=== PATIENT | female | born 1980 | race Caucasian/White ===

== ENCOUNTER 2021-02-01 19:50 | Emergency (ER) | payer MEDICAID, SELFPAY ==
[2021-02-01 19:55] VITALS: BP 138/74; BP 147/99; PULSE 116; PULSE 121; RESP 18; TEMP 36.9; O2SAT 98; O2SAT 99; BMI 40.7
--- NOTE | 2021-02-01 20:30 | ED_ITS ---
HPI - Psych General Chief Complaint: Psychiatric Symptoms Stated Complaint: anxiety Time Seen by Provider: 02/01/21 20:18 Source: patient Mode of arrival: EMS Limitations: no limitations History of Present Illness HPI Narrative: 40-year-old female who presents emergency department for evaluation of suicidal ideation and auditory hallucinations. The patient states that she has a history of heroin use disorder and last used 2 months prior. She states over the past 3 days she has been having suicidal thoughts. She states that she wants to overdose on heroin. She also states that over the past 3 days she has been hearing voices. She states that she cannot understand the voices and the voices are not giving her commands. She states that she has attempted to kill herself in the past by cutting her wrists. She has a history of depression left is not taking any medications for depression she has a history of hypertension in the states that she takes hydrochlorothiazide 25 mg once a day. She denied being ill in any other way, she denied fever, chills, chest pain, shortness of breath or cough. The patient has not had a COVID-19 infection during this pandemic. She states that she received the 2 doses Pfizer vaccine with her last dose being on 11/29/2020. Related Data Home Medications Medication Instructions Recorded Confirmed buprenorphine 12 mg-naloxone 3 mg 1.5 strip SUBLINGUAL DAILY 02/01/21 02/01/21 sublingual film (Suboxone) clonidine HCl 0.1 mg tablet 1 tab PO BID PRN 02/01/21 02/01/21 escitalopram oxalate 10 mg tablet 1 tab PO DAILY 02/01/21 02/01/21 lisinopril 20 mg tablet 1 tab PO DAILY 02/01/21 02/01/21 nicotine 14 mg/24 hr daily 1 patch TOPICAL DAILY 02/01/21 02/01/21 transdermal patch olanzapine 15 mg tablet 1 tab PO BEDTIME 02/01/21 02/01/21 omeprazole 40 mg capsule,delayed 1 cap PO DAILY 02/01/21 02/01/21 release venlafaxine 150 mg 150 mg PO QAM 02/01/21 02/01/21 capsule,extended release 24 hr Allergies Allergy/AdvReac Type Severity Reaction Status Date / Time No Known Allergies Allergy Verified 02/01/21 19:54 Review of Systems Review of Systems: Yes all other systems are reviewed and are negative PMFSH Past Medical History PMFSH Narrative: Social history: She states that she lives alone in apartment in [facility]. She occasionally smokes cigarettes. She denies alcohol use. She does have a history of heroin use but she states she has not used in 2 months. Medical History Anxiety Depression Suicide attempt Social History Social History Advance Directives: No Advance Directives Information Provided: Yes Patient : No Physical Exam Vital Signs: Vital Signs: Last Vital Signs Temp 98.5 F 02/01/21 19:55 Pulse 121 H 02/01/21 19:55 Resp 18 02/01/21 19:55 BP 147/99 H 02/01/21 19:55 Pulse Ox 99 02/01/21 19:55 Body Mass Index 40.7 Const: General: cooperative Orientation/consciousness: oriented to person and oriented to place Limitations: no limitations HENMT: Head: Yes normal to inspection, Yes normocephalic and Yes atraumatic Ears: external ears normal General nose exam: Normal external nose present Face and sinus: Yes normal facial exam Mouth: Normal oral and palatal mucosa present Throat: Yes posterior oropharynx normal Eyes: Periorbital: periorbital findings normal Eyelids: Yes eyelids normal Conjunctivae: conjunctivae normal Sclerae: sclerae normal Corneas: corneas normal Pupils: Equal, round and reactive pupils present Direct Ophthalmoscopy: normal light reflex Neck: Neck: Yes full ROM, Yes no lymphadenopathy, Yes trachea midline and Yes supple Chest: Chest palpation & inspection: normal inspection of the chest and normal palpation of entire chest wall Resp: Effort & Inspection: normal respiratory effort and able to speak in complete sentences Auscultation: clear to auscultation bilaterally Cardio: Rate: regular rate Rhythm: regular rhythm Heart sounds: S1 normal heart sound present, S2 normal heart sound present and no murmurs GI: Inspection: Yes normal to inspection Palpation (GI): Soft to palpation, nontender, no guarding, not rigid and No hepatosplenomegaly present : General: Yes no CVA tenderness Back/Spine/Pelvis: Back: no CVA tenderness Cervical Spine: normal cervical lordosis Thoracic/Lumbar Spine: thoracic and lumbar spine normal to inspection Skin: Lesions: no lesions Rashes: no rashes Wounds: no wounds Neuro: General: oriented to person and oriented to place Cranial nerves: Yes CN's II-XII intact bilaterally and Yes Equal, round and reactive pupils pre sent Cognition (Neuro): normal cognition Motor exam (neuro): 5/5 motor strength present throughout Extrem: General: Yes normal to inspection and Yes full ROM Psych: Speech and movement: Normal speech and movement present Affect: normal affect Attitude: cooperative Thought process: Normal thought process present Thought content: Suicidality present, no homicidality and no delusions Course Course Course Narrative: 40-year-old female with a history of depression and auditory hallucinations in the past who presents emergency department for evaluation of suicidal ideation x3 days and auditory hallucinations x3 days. Patient's vital signs reveal that she was hypertensive with a blood pressure of 147/99 and tachycardic with a pulse of 121, otherwise the patient's examination was unremarkable. Laboratory evaluation to include CBC, CMP, TSH, urine test, urine tox screen and 12 lead EKG. 2306: Patient's laboratory evaluation revealed an elevated glucose of 226. Urinalysis revealed 15-29 RBCs 0-2 WBCs. TSH was normal. Ethanol was below detectable limits. Urine tox screen is pending. Twelve EKG did reveal inverted T-waves V3 through V6, however the patient is not having any chest pain and the EKG was obtained secondary to tachycardia presentation. I do not think that these represent ischemia. Patient is medically cleared for crisis evaluation. 0200: The patient's outpatient medication regimen was ordered. At the end of my shift, the patient is still waiting for Behavioral Health evaluation therefore she will be placed in physician observation. Patient's care was turned over to my colleague, Dr. Nahomy Barr. Physician observation started at 0 200 hours. Patient placed in physician observation because the patient needed more time for medication to work and to see and be evaluated for the need for psych admission. At the time observation was started the patient's vitals were stable, patient is is sleeping and her examination is unchanged. MDM - Psych Lab Data Result diagrams: 02/01/21 21:45 02/01/21 20:47 Labs: Lab Results 02/01/21 02/01/21 02/01/21 Range/Units 20:17 20:47 21:24 WBC (4.8-10.8) X10*3/uL RBC (4.20-5.50) X10*6/uL Hgb (12.0-16.0) g/dl Hct (37-47) % MCV (80-98) fL MCH (27.0-33.0) pg MCHC (31.0-35.0) g/dl RDW (11.0-16.0) % Plt Count (160-400) X10*3/uL MPV (9.4-12.3) fL Immature Gran % (Auto) (0.0-0.4) % Neut % (Auto) (45-73) % Lymph % (Auto) (20-40) % [place] % (Auto) (2-11) % Eos % (Auto) (0-4) % Baso % (Auto) (0-2) % Lymph # (Auto) (1.2-4.9) X10*3/uL [place] # (Auto) (0.1-1.2) X10*3/uL Eos # (Auto) (0.0-0.4) X10*3/uL Baso # (Auto) (0.0-0.2) X10*3/uL Abs Immat Gran (auto) (0.00-0.03) X10*3/uL Absolute Neuts (auto) (2.0-8.3) X10*3/uL Absolute Nucleated RBC (0.0-0.012) X10*3/uL Nucleated RBC % (auto) (0.0-0.2) /100WBC Sodium 139 (135-145) mmol/L Potassium 3.6 (3.3-5.1) mmol/L Chloride 105 (96-108) mmol/L Carbon Dioxide 21 L (22-29) mmol/L Anion Gap 17 (12-20) BUN 10 (9-16) mg/dL Creatinine 0.96 (0.5-1.4) mg/dL Estim Creat Clear Calc 89.9 Estimated GFR > 60 Random Glucose 226 H (60-115) mg/dL Calcium 9.1 (8.4-10.2) mg/dL Total Bilirubin 0.4 (0.0-1.0) mg/dL AST 43 H (5-31) U/L ALT 42 H (0-31) U/L Alkaline Phosphatase 72 (39-117) U/L Total Protein 7.6 (6.5-8.0) g/dL Albumin 4.0 (3.5-5.0) g/dL TSH 0.33 (0.32-4.0) uIU/mL Ethyl Alcohol mg/dL COVID-19 (DANIEL) Negative (Negative) COVID-19 Clin Com See Note 02/01/21 02/01/21 Range/Units 21:24 21:45 WBC 11.1 H (4.8-10.8) X10*3/uL RBC 4.78 (4.20-5.50) X10*6/uL Hgb 12.2 (12.0-16.0) g/dl Hct 38.5 (37-47) % MCV 80.5 (80-98) fL MCH 25.5 L (27.0-33.0) pg MCHC 31.7 (31.0-35.0) g/dl RDW 14.0 (11.0-16.0) % Plt Count 247 (160-400) X10*3/uL MPV 9.4 (9.4-12.3) fL Immature Gran % (Auto) 0.5 H (0.0-0.4) % Neut % (Auto) 71.9 (45-73) % Lymph % (Auto) 19.9 L (20-40) % [place] % (Auto) 6.6 (2-11) % Eos % (Auto) 0.7 (0-4) % Baso % (Auto) 0.4 (0-2) % Lymph # (Auto) 2.2 (1.2-4.9) X10*3/uL [place] # (Auto) 0.7 (0.1-1.2) X10*3/uL Eos # (Auto) 0.1 (0.0-0.4) X10*3/uL Baso # (Auto) 0.0 (0.0-0.2) X10*3/uL Abs Immat Gran (auto) 0.05 H (0.00-0.03) X10*3/uL Absolute Neuts (auto) 8.0 (2.0-8.3) X10*3/uL Absolute Nucleated RBC 0.000 (0.0-0.012) X10*3/uL Nucleated RBC % (auto) 0.0 (0.0-0.2) /100WBC Sodium (135-145) mmol/L Potassium (3.3-5.1) mmol/L Chloride (96-108) mmol/L Carbon Dioxide (22-29) mmol/L Anion Gap (12-20) BUN (9-16) mg/dL Creatinine (0.5-1.4) mg/dL Estim Creat Clear Calc Estimated GFR Random Glucose (60-115) mg/dL Calcium (8.4-10.2) mg/dL Total Bilirubin (0.0-1.0) mg/dL AST (5-31) U/L ALT (0-31) U/L Alkaline Phosphatase (39-117) U/L Total Protein (6.5-8.0) g/dL Albumin (3.5-5.0) g/dL TSH (0.32-4.0) uIU/mL Ethyl Alcohol < 10 mg/dL COVID-19 (DANIEL) (Negative) COVID-19 Clin Com Discharge Plan Discharge Prescriptions: No Action clonidine HCl 0.1 mg tablet 1 tab PO BID PRN (Reason: anxiety) RF: 0 nicotine 14 mg/24 hr patch 24 hour 1 patch topical DAILY RF: 0 venlafaxine 150 mg capsule,extended release 24hr 150 mg PO QAM RF: 0 buprenorphine-naloxone [Suboxone] 12-3 mg film 1.5 strip sublingual DAILY RF: 0 olanzapine 15 mg tablet 1 tab PO BEDTIME RF: 0 omeprazole 40 mg capsule,delayed release(DR/EC) 1 cap PO DAILY RF: 0 escitalopram oxalate 10 mg tablet 1 tab PO DAILY RF: 0 lisinopril 20 mg tablet 1 tab PO DAILY RF: 0
--- NOTE | 2021-02-01 20:37 | ECG_ITS ---
Test Reason : MED CLEARANCE Blood Pressure : / mmHG Vent. Rate : 086 BPM Atrial Rate : 086 BPM P-R Int : 184 ms QRS Dur : 084 ms QT Int : 394 ms P-R-T Axes : 048 021 188 degrees QTc Int : 471 ms Normal sinus rhythm Minimal voltage criteria for LVH, may be normal variant T wave abnormality, consider inferolateral ischemia Prolonged QT Abnormal ECG When compared with ECG of 29-OCT-2017 17:16, T wave inversion now evident in Inferior leads T wave inversion now evident in Lateral leads Referred By: Maximiliano Galeano Electronically Signed By:MOIRA MCCARTNEY
[2021-02-01 20:42] LABS: COVID-19 Test Negative (Negative)
[2021-02-01 21:19] LABS: Alanine Aminotransferase 42 U/L (0-31); Alkaline Phosphatase 72 U/L (39-117); Anion Gap 17 (12-20); Aspartate Amino Transferase 43 U/L (5-31); Bilirubin Total 0.4 mg/dL (0.0-1.0); Blood Urea Nitrogen 10 mg/dL (9-16); Calcium 9.1 mg/dL (8.4-10.2); Carbon Dioxide 21 mmol/L (22-29); Chloride 105 mmol/L (96-108); Creatinine Clr Calc Pharmacy 89.9; Estimated Glomerular Filt Rate > 60; Glucose Random 226 mg/dL (60-115); Potassium 3.6 mmol/L (3.3-5.1); Sodium 139 mmol/L (135-145); Total Protein 7.6 g/dL (6.5-8.0)
[2021-02-01 21:53] LABS: Basophils Percent Auto 0.4 % (0-2); Eosinophils Absolute Auto 0.1 X10*3/uL (0.0-0.4); Eosinophils Percent Auto 0.7 % (0-4); Hematocrit 38.5 % (37-47); Hemoglobin 12.2 g/dl (12.0-16.0); Imm Gran Abs Auto 0.05 X10*3/uL (0.00-0.03); Imm Gran Pct Auto 0.5 % (0.0-0.4); Lymphocytes Absolute Auto 2.2 X10*3/uL (1.2-4.9); Lymphocytes Percent Auto 19.9 % (20-40); Mean Corpuscular HGB Conc 31.7 g/dl (31.0-35.0); Mean Corpuscular Hemoglobin 25.5 pg (27.0-33.0); Mean Corpuscular Volume 80.5 fL (80-98); Mean Platelet Volume 9.4 fL (9.4-12.3); Monocytes Absolute Auto 0.7 X10*3/uL (0.1-1.2); Monocytes Percent Auto 6.6 % (2-11); Neutrophils Percent Auto 71.9 % (45-73); Platelet Count 247 X10*3/uL (160-400); Red Blood Count 4.78 X10*6/uL (4.20-5.50); White Blood Count 11.1 X10*3/uL (4.8-10.8)
[2021-02-01 22:00] LABS: Ethanol < 10 mg/dL
[2021-02-01 22:23] LABS: TSH reflex Free T4 0.33 uIU/mL (0.32-4.0)
[2021-02-01 22:41] LABS: MANUAL DIFF FLAG NO
[2021-02-02] MEDS: OLANZapine 7.5 MG TABLET 15 MG PO (00:56)
[2021-02-02 06:09] VITALS: BP 146/108; PULSE 81
[2021-02-02] MEDS: cloNIDine HCL 0.1 MG TABLET PO (06:09)
--- NOTE | 2021-02-02 06:12 | PC.NURSE ---
Patient slept through the night, no distress observed/reported, behavior appropriate, med compliant, awaiting N evaluation in the morning, referral completed via smart/confirmed by [facility] intake staff, will continue to monitor.
[2021-02-02 06:24] VITALS: BP 147/108; PULSE 81; RESP 18; TEMP 36.1; O2SAT 97
[2021-02-02 07:32] LABS: Glucose Urine UA NEG (NEG); Leukocyte Esterase Urine NEG (NEG); Nitrite Urine NEG (NEG); Specific Gravity - Urine >= 1.030 (1.005-1.025); UACC Culture Trigger NO; Urine Blood 1+ (NEG); Urine Ketones 15 MG/DL (NEG); Urine Protein 2+ MG/DL (NEG-TRACE)
[2021-02-02 07:33] LABS: UPreg QC Valid YES; Urine Pregnancy NEGATIVE (NEGATIVE)
[2021-02-02 07:34] LABS: Appearance Urine HAZY; Color Urine DARK YELLOW
[2021-02-02 07:40] LABS: RBC Urine 0-2 /HPF (0); Squamous Epithelial Cell Urine 3+ /LPF
[2021-02-02 07:41] LABS: Bacteria Urine 1+ /LPF; Mucus Urine 3+ /LPF
[2021-02-02 07:53] LABS: Amphetamine Screen Urine Not Detected (Not Detect); Barbiturates, Urine Not Detected (Not Detect); Benzodiazepines Screen Urine Not Detected (Not Detect); Cannabinoid Screen Urine POSITIVE (Not Detect); Cocaine Screen Urine Not Detected (Not Detect); Opiate Screen Urine Not Detected (Not Detect); Phencyclidine Screen Urine Not Detected (Not Detect)
[2021-02-02 09:12] VITALS: BP 125/72; PULSE 64; RESP 17; TEMP 36.5; O2SAT 96
[2021-02-02] MEDS: Buprenorphine/Naloxone 2/0.5mg FILM 3 FILM SUBLINGUAL (09:54)
[2021-02-02] MEDS: Buprenorphine/Naloxone 12/3 mg FILM 1 FILM SUBLINGUAL (09:54)
[2021-02-02] MEDS: Venlafaxine HCl ER 150 MG CAP.ER.24H PO (09:54)
[2021-02-02] MEDS: Nicotine 14 MG PATCH.TD24 TRANSDERMA (09:54)
[2021-02-02] MEDS: Omeprazole 40 MG CAPSULE.DR PO (09:55)
[2021-02-02] MEDS: Escitalopram Oxalate 10 MG TABLET PO (09:55)
== END 2021-02-02 11:51 | disposition home or self-care (01) ==
PROVIDERS: Emergency Medicine Emergency Medical Services; Physician Assistant; Emergency Provider Student in an Organized Health Care Education/Training Program
DX: F31.9 Bipolar disorder, unspecified (principal); R45.851 Suicidal ideations; R44.0 Auditory hallucinations; I10 Essential (primary) hypertension; F41.9 Anxiety disorder, unspecified; R00.0 Tachycardia, unspecified; F11.20 Opioid dependence, uncomplicated; F17.210 Nicotine dependence, cigarettes, uncomplicated; Z91.5 Personal history of self-harm; Z79.899 Other long term (current) drug therapy; Z20.822 Contact with and (suspected) exposure to COVID-19
CPT/HCPCS: 36415; 80053; 80307; 81001; 81025; 82077; 84443; 85025; 87635; 93005; 99284; 99285

== ENCOUNTER 2021-03-22 07:18 | Emergency (ER) | payer MEDICAID, SELFPAY ==
--- NOTE | ~2021-03-22 | CT_ITS ---
EXAMINATION: CT ABDOMEN AND PELVIS WITH CONTRAST CLINICAL INFORMATION: Left lower quadrant pain. COMPARISON: CT abdomen and pelvis 06/23/2019. TECHNIQUE: Multidetector volumetric images were obtained from the superior aspect of the liver through the pubic symphysis following administration 85 mL of Omnipaque 350 intravenous contrast. Sagittal and coronal reformatted images were obtained on the technologist's workstation. Oral contrast: No This CT examination was performed using dose optimization techniques as appropriate, variously including the following: *Automated exposure control *Adjustment of mA and/or kV according to patient size (this includes techniques or standardized protocols for targeted exams where dose is matched to indication/reason for exam; i.e. extremities or head) *Use of iterative reconstruction technique DLP: 803 mGy-cm FINDINGS: LUNG BASES: The lung bases are clear. The heart size is normal. LIVER, GALLBLADDER, AND BILIARY TREE: The liver is normal in size, shape, and attenuation. No focal hepatic lesion or biliary ductal dilatation is present. The gallbladder is unremarkable with no evidence of radiopaque gallstones, gallbladder wall thickening, or obvious pericholecystic inflammatory changes. PANCREAS: Unremarkable. SPLEEN: Unremarkable. ADRENAL GLANDS: Unremarkable. KIDNEYS AND URETERS: The kidneys are normal in size, shape, and attenuation. No hydronephrosis, hydroureter, or calculi seen. No perinephric stranding. BLADDER: Unremarkable. GASTROINTESTINAL TRACT: There is scattered stool and gas seen throughout the colon without any significant distention. The small bowel loops are normal caliber. There is a small appendicolith at the base of appendix. The appendix is normal caliber. There are postsurgical changes along the greater curvature of stomach likely from gastric reduction surgery. No free air or free air or free fluid seen. No inflammatory changes seen in the abdomen especially left lower quadrant. ABDOMINAL WALL: No significant hernia is appreciated. LYMPH NODES: There are small shotty lymph nodes seen in the retroperitoneum. The largest retroperitoneal lymph node aortocaval region measures 0.8 x 1.5 cm axial image 33/3. VASCULAR: Unremarkable. PELVIC VISCERA: Unremarkable. OSSEOUS STRUCTURES: No lytic or sclerotic process seen. There is mild bilateral L5-S1 facet joint arthropathy. CT/CT abdomen pelvis w con IMPRESSION: No acute intra-abdominal process seen. Especially no abnormality seen in the left lower quadrant. No inflammatory process seen in the abdomen. Sutures along the greater curvature stomach, ? Gastric reduction surgery changes. No change compared to an 06/23/2019
[2021-03-22 08:23] VITALS: BP 176/87; PULSE 80; RESP 16; TEMP 36.7; O2SAT 93; BMI 42.5
--- NOTE | 2021-03-22 08:45 | ED.ABDPAIN ---
HPI - Abdominal Pain General Chief Complaint: Abdominal Pain Stated Complaint: abd pain Time Seen by Provider: 03/22/21 08:13 Source: patient Mode of arrival: ambulatory Limitations: no limitations History of Present Illness HPI narrative: Patient presents to ED for left lower quadrant abdominal pain for 3 days. Patient states history of ulcer colitis. Patient states left lower quadrant abdominal pain, diarrhea, and vomiting. Patient states no dysuria, hematuria, flank pain or fever. Patient states chills. Patient denies any history of any abscess or surgery to abdomen. MD elicited complaint: abdominal pain Related Data Home Medications Medication Instructions Recorded Confirmed buprenorphine 12 mg-naloxone 3 mg 1.5 strip SUBLINGUAL DAILY 02/01/21 02/01/21 sublingual film (Suboxone) clonidine HCl 0.1 mg tablet 1 tab PO BID PRN 02/01/21 02/01/21 escitalopram oxalate 10 mg tablet 1 tab PO DAILY 02/01/21 02/01/21 lisinopril 20 mg tablet 1 tab PO DAILY 02/01/21 02/01/21 nicotine 14 mg/24 hr daily 1 patch TOPICAL DAILY 02/01/21 02/01/21 transdermal patch olanzapine 15 mg tablet 1 tab PO BEDTIME 02/01/21 02/01/21 omeprazole 40 mg capsule,delayed 1 cap PO DAILY 02/01/21 02/01/21 release venlafaxine 150 mg 150 mg PO QAM 02/01/21 02/01/21 capsule,extended release 24 hr Previous Rx's Medication Instructions Recorded ketorolac 10 mg tablet 10 mg PO Q6H PRN 5 Days #20 tab 03/22/21 prednisone 20 mg tablet 40 mg PO DAILY #10 tab 03/22/21 Allergies Allergy/AdvReac Type Severity Reaction Status Date / Time No Known Allergies Allergy Verified 02/01/21 19:54 Review of Systems Review of Systems Yes all other systems are reviewed and are negative Constitutional: Reports as per HPI and Reports no additional constitutional complaints Eyes: Reports as per HPI and Reports no additional eye complaints Reports system reviewed and no additional complaints, except as documented and Reports as per HPI Cardiovascular: Reports as per HPI and Reports no additional cardiovascular complaints Respiratory: Reports as per HPI and Reports no additional respiratory complaints Gastrointestinal: Reports as per HPI, Reports no additional gastrointestinal complaints, Reports abdominal pain (left lower quadrant pain), Reports diarrhea, Reports nausea and Reports vomiting Genitourinary: Reports no additional female genitourinary complaints and Reports as per HPI Musculoskeletal: Reports no additional musculoskeletal complaints and Reports as per HPI Reports system reviewed and no additional complaints, except as documented and Reports as per HPI Psychiatric: Reports no additional psychiatric complaints and Reports as per HPI Physical Exam Vital Signs: Vital Signs: Last Vital Signs Temp 98.1 F 03/22/21 08:23 Pulse 79 03/22/21 10:52 Resp 16 03/22/21 10:52 BP 188/97 H 03/22/21 10:52 Pulse Ox 95 03/22/21 10:52 Body Mass Index 42.5 Const: General: cooperative, healthy appearing, comfortable, no acute distress, well developed, alert, awake and Physically active Orientation/consciousness: patient oriented x3 HENMT: Head: Yes normal to inspection, Yes No palpable skull fracture present, Yes normocephalic, Yes atraumatic and No abrasion Eyes: General: appearance normal, both eyes and all related structures Neck: Neck: Yes normal visual inspection, Yes full ROM, Yes no lymphadenopathy, Yes no meningeal signs, Yes trachea midline, Yes supple and No tender Chest: Chest palpation & inspection: normal inspection of the chest and normal palpation of entire chest wall Resp: Effort & Inspection: normal respiratory effort and able to speak in complete sentences Auscultation: clear to auscultation bilaterally Cardio: Jugular venous distension: no JVD Heart sounds: S1 normal heart sound present and S2 normal heart sound present GI: Inspection: Yes normal to inspection and No abdominal wall ecchymosis Palpation (GI): Soft to palpation, not firm, Tenderness to palpation present (GI) in the LLQ, no guarding and not rigid : General: No CVA tenderness and Yes no CVA tenderness Back/Spine/Pelvis: Back: no CVA tenderness, No CVA tenderness and No back tenderness Skin: General skin exam: no rashes or lesions noted and elasticity normal Neuro: General: patient oriented x3, gait normal, no meningeal signs and CN's II-XI intact bilaterally Cranial nerves: Yes CN's II-XII intact bilaterally Extrem: General: Yes normal to inspection and Yes full ROM Psych: Appearance: grossly normal, well kempt and not disheveled Course Course Course Narrative: Patient will have labs and will be given Solu-Medrol for history of also colitis for waiting on test results for pain meds Reevaluation(s) Reevaluation #1: CT scan does not show any intra-abdominal acute process per negative for any abscesses. Patient blood pressure elevated due to pain. Urine negative for UTI. Patient will be discharged. Patient hypertensive due to pain. Time: 12:56 MDM - Abdominal Pain MDM Narrative Medical decision making narrative: Abdominal pain Lab Data Result diagrams: 03/22/21 10:23 03/22/21 10:23 Labs: Lab Results 03/22/21 03/22/21 03/22/21 Range/Units 09:06 09:06 10:23 WBC 7.8 (4.8-10.8) X10*3/uL RBC 4.44 (4.20-5.50) X10*6/uL Hgb 10.8 L (12.0-16.0) g/dl Hct 34.7 L (37-47) % MCV 78.2 L (80-98) fL MCH 24.3 L (27.0-33.0) pg MCHC 31.1 (31.0-35.0) g/dl RDW 14.9 (11.0-16.0) % Plt Count 215 (160-400) X10*3/uL MPV 9.5 (9.4-12.3) fL Immature Gran % (Auto) 0.6 H (0.0-0.4) % Neut % (Auto) 73.5 H (45-73) % Lymph % (Auto) 20.0 (20-40) % [place] % (Auto) 4.7 (2-11) % Eos % (Auto) 0.8 (0-4) % Baso % (Auto) 0.4 (0-2) % Lymph # (Auto) 1.6 (1.2-4.9) X10*3/uL [place] # (Auto) 0.4 (0.1-1.2) X10*3/uL Eos # (Auto) 0.1 (0.0-0.4) X10*3/uL Baso # (Auto) 0.0 (0.0-0.2) X10*3/uL Abs Immat Gran (auto) 0.05 H (0.00-0.03) X10*3/uL Absolute Neuts (auto) 5.8 (2.0-8.3) X10*3/uL Absolute Nucleated RBC 0.000 (0.0-0.012) X10*3/uL Nucleated RBC % (auto) 0.0 (0.0-0.2) /100WBC PT (9.9-13.0) SEC INR (0.9-1.1) APTT (24.1-38.0) SEC Sodium (135-145) mmol/L Potassium (3.3-5.1) mmol/L Chloride (96-108) mmol/L Carbon Dioxide (22-29) mmol/L Anion Gap (12-20) BUN (9-16) mg/dL Creatinine (0.5-1.4) mg/dL Estim Creat Clear Calc Estimated GFR Random Glucose (60-115) mg/dL Calcium (8.4-10.2) mg/dL Total Bilirubin (0.0-1.0) mg/dL AST (5-31) U/L ALT (0-31) U/L Alkaline Phosphatase (39-117) U/L Total Protein (6.5-8.0) g/dL Albumin (3.5-5.0) g/dL Beta HCG, Quant mIU/mL Urine Color YELLOW Urine Appearance HAZY Urine pH 7.0 (5.0-8.0) Ur Specific [place] 1.015 (1.005-1.025) Urine Protein 1+ H (NEG-TRACE) MG/DL Urine Glucose (UA) 500 H (NEG) MG/DL Urine Ketones 15 (NEG) MG/DL Urine Blood NEG (NEG) Urine Nitrite NEG (NEG) Ur Leukocyte Esterase NEG (NEG) Urine RBC 0 (0) /HPF Urine WBC 1-4 (0-4) /HPF Ur Squamous Epith Cells 4+ /LPF Urine Bacteria 1+ /LPF Urine Test NEGATIVE (NEGATIVE) 03/22/21 03/22/21 Range/Units 10:23 10:23 WBC (4.8-10.8) X10*3/uL RBC (4.20-5.50) X10*6/uL Hgb (12.0-16.0) g/dl Hct (37-47) % MCV (80-98) fL MCH (27.0-33.0) pg MCHC (31.0-35.0) g/dl RDW (11.0-16.0) % Plt Count (160-400) X10*3/uL MPV (9.4-12.3) fL Immature Gran % (Auto) (0.0-0.4) % Neut % (Auto) (45-73) % Lymph % (Auto) (20-40) % [place] % (Auto) (2-11) % Eos % (Auto) (0-4) % Baso % (Auto) (0-2) % Lymph # (Auto) (1.2-4.9) X10*3/uL [place] # (Auto) (0.1-1.2) X10*3/uL Eos # (Auto) (0.0-0.4) X10*3/uL Baso # (Auto) (0.0-0.2) X10*3/uL Abs Immat Gran (auto) (0.00-0.03) X10*3/uL Absolute Neuts (auto) (2.0-8.3) X10*3/uL Absolute Nucleated RBC (0.0-0.012) X10*3/uL Nucleated RBC % (auto) (0.0-0.2) /100WBC PT 12.5 (9.9-13.0) SEC INR 1.1 (0.9-1.1) APTT 29.0 (24.1-38.0) SEC Sodium 136 (135-145) mmol/L Potassium 4.3 (3.3-5.1) mmol/L Chloride 105 (96-108) mmol/L Carbon Dioxide 24 (22-29) mmol/L Anion Gap 11 L (12-20) BUN 7 L (9-16) mg/dL Creatinine 0.76 (0.5-1.4) mg/dL Estim Creat Clear Calc 116.5 Estimated GFR > 60 Random Glucose 266 H (60-115) mg/dL Calcium 8.9 (8.4-10.2) mg/dL Total Bilirubin 0.7 (0.0-1.0) mg/dL AST 85 H (5-31) U/L ALT 44 H (0-31) U/L Alkaline Phosphatase 74 (39-117) U/L Total Protein 7.0 (6.5-8.0) g/dL Albumin 3.8 (3.5-5.0) g/dL Beta HCG, Quant < 2 mIU/mL Urine Color Urine Appearance Urine pH (5.0-8.0) Ur Specific [place] (1.005-1.025) Urine Protein (NEG-TRACE) MG/DL Urine Glucose (UA) (NEG) MG/DL Urine Ketones (NEG) MG/DL Urine Blood (NEG) Urine Nitrite (NEG) Ur Leukocyte Esterase (NEG) Urine RBC (0) /HPF Urine WBC (0-4) /HPF Ur Squamous Epith Cells /LPF Urine Bacteria /LPF Urine Test (NEGATIVE) Discharge Plan Discharge Clinical Impression: Abdominal pain Patient Disposition: Home, Self-Care Instructions: Ulcerative Colitis (ED), Abdominal Pain (ED) Additional Instructions: Your blood work, urine, and CT scan came back normal. You will be discharged with steroids and Toradol for pain relief. Return to the ED for any worsening of symptoms, fever, chills, abdominal pain, dysuria, blood in stool, nausea, vomiting, or any other concerning symptoms. Please follow up with PCP Prescriptions: New ketorolac 10 mg tablet 10 mg PO Q6H PRN (Reason: pain) 5 Days Qty: 20 RF: 0 prednisone 20 mg tablet 40 mg PO DAILY Qty: 10 RF: 0 No Action clonidine HCl 0.1 mg tablet 1 tab PO BID PRN (Reason: anxiety) RF: 0 nicotine 14 mg/24 hr patch 24 hour 1 patch topical DAILY RF: 0 venlafaxine 150 mg capsule,extended release 24hr 150 mg PO QAM RF: 0 buprenorphine-naloxone [Suboxone] 12-3 mg film 1.5 strip sublingual DAILY RF: 0 olanzapine 15 mg tablet 1 tab PO BEDTIME RF: 0 omeprazole 40 mg capsule,delayed release(DR/EC) 1 cap PO DAILY RF: 0 escitalopram oxalate 10 mg tablet 1 tab PO DAILY RF: 0 lisinopril 20 mg tablet 1 tab PO DAILY RF: 0 Interventions: ED Discharge Assessment Last Done: 03/22/21 13:10 Discharge Date/Time: 03/22/21 13:10 Print Language: [place] [facility] Past Medical History Medical History Anxiety Depression Suicide attempt Social History Social History Patient Tobacco Use Status: Current everyday Tobacco user Substance Use Type: Marijuana Substance Use Frequency: Occasionally Advance Directives: No Advance Directives Information Provided: No
[2021-03-22 09:20] LABS: UPreg QC Valid YES; Urine Pregnancy NEGATIVE (NEGATIVE)
[2021-03-22 09:32] LABS: Appearance Urine HAZY; Color Urine YELLOW; Glucose Urine UA 500 MG/DL (NEG); Leukocyte Esterase Urine NEG (NEG); Nitrite Urine NEG (NEG); Specific Gravity - Urine 1.015 (1.005-1.025); UACC Culture Trigger NO; Urine Blood NEG (NEG); Urine Ketones 15 MG/DL (NEG); Urine Protein 1+ MG/DL (NEG-TRACE)
[2021-03-22 09:36] LABS: Bacteria Urine 1+ /LPF; RBC Urine 0 /HPF (0); Squamous Epithelial Cell Urine 4+ /LPF
[2021-03-22] MEDS: Ketorolac Tromethamine 15 MG/ML VIAL 30 MG IM (09:50)
[2021-03-22] MEDS: predniSONE 20 MG TABLET 60 MG PO (09:51)
--- NOTE | 2021-03-22 09:54 | PC.NURSE ---
Pt very difficult IV stick. Attempt with ultrasounds as well and still unable. Chin KIMBROUGH aware. Awaiting lab results to complete plan for IV.
[2021-03-22] MEDS: 0.9 % Sodium Chloride 1,000 ML 999 ML IV (10:10)
[2021-03-22 10:33] LABS: Basophils Percent Auto 0.4 % (0-2); Eosinophils Absolute Auto 0.1 X10*3/uL (0.0-0.4); Eosinophils Percent Auto 0.8 % (0-4); Hematocrit 34.7 % (37-47); Hemoglobin 10.8 g/dl (12.0-16.0); Imm Gran Abs Auto 0.05 X10*3/uL (0.00-0.03); Imm Gran Pct Auto 0.6 % (0.0-0.4); Lymphocytes Absolute Auto 1.6 X10*3/uL (1.2-4.9); Mean Corpuscular HGB Conc 31.1 g/dl (31.0-35.0); Mean Corpuscular Hemoglobin 24.3 pg (27.0-33.0); Mean Corpuscular Volume 78.2 fL (80-98); Mean Platelet Volume 9.5 fL (9.4-12.3); Monocytes Absolute Auto 0.4 X10*3/uL (0.1-1.2); Monocytes Percent Auto 4.7 % (2-11); Neutrophils Absolute Auto 5.8 X10*3/uL (2.0-8.3); Neutrophils Percent Auto 73.5 % (45-73); Platelet Count 215 X10*3/uL (160-400); Red Blood Count 4.44 X10*6/uL (4.20-5.50); Red Cell Distribution Width 14.9 % (11.0-16.0); White Blood Count 7.8 X10*3/uL (4.8-10.8)
[2021-03-22 10:40] LABS: INTERNATIONAL NORM RATIO 1.1 (0.9-1.1); Prothrombin Time 12.5 SEC (9.9-13.0)
[2021-03-22 10:50] VITALS: RESP 12
[2021-03-22] MEDS: Morphine Sulfate 4 MG/ML CARTRIDGE IVPUSH ×2 (10:50→12:23)
[2021-03-22 10:52] VITALS: BP 188/97; PULSE 79; RESP 16; O2SAT 95
[2021-03-22 10:54] LABS: HCG Quantitative < 2 mIU/mL
[2021-03-22 11:01] LABS: Alanine Aminotransferase 44 U/L (0-31); Albumin Level 3.8 g/dL (3.5-5.0); Alkaline Phosphatase 74 U/L (39-117); Anion Gap 11 (12-20); Aspartate Amino Transferase 85 U/L (5-31); Bilirubin Total 0.7 mg/dL (0.0-1.0); Blood Urea Nitrogen 7 mg/dL (9-16); Calcium 8.9 mg/dL (8.4-10.2); Carbon Dioxide 24 mmol/L (22-29); Chloride 105 mmol/L (96-108); Creatinine Clr Calc Pharmacy 116.5; Estimated Glomerular Filt Rate > 60; Glucose Random 266 mg/dL (60-115); Potassium 4.3 mmol/L (3.3-5.1); Sodium 136 mmol/L (135-145)
[2021-03-22] MEDS: iohexoL 350 MG/ML 100 ML INFUS..BTL IV (11:56)
[2021-03-22 11:57] LABS: MANUAL DIFF FLAG NO
== END 2021-03-22 13:10 | disposition home or self-care (01) ==
PROVIDERS: Physician Assistant; Emergency Provider Emergency Medicine
DX: R10.32 Left lower quadrant pain (principal); Z79.899 Other long term (current) drug therapy
CPT/HCPCS: 36415; 74177; 80053; 81001; 81025; 84702; 85025; 85610; 85730; 96361; 96372; 96374; 96375; 96376; 99284; 99285; J1885; J2270; Q9967

== ENCOUNTER 2021-05-18 17:44 | Inpatient (IN) | payer MEDICAID, OTHER, SELFPAY ==
[2021-05-18 18:00] VITALS: BP 151/77; PULSE 76; RESP 16; TEMP 36.8; O2SAT 96; BMI 40.7
[2021-05-18] MEDS: LORazepam 0.5 MG TABLET PO (18:09)
--- NOTE | 2021-05-18 18:36 | ED_ITS ---
HPI - Psych General Chief Complaint: Psychiatric Symptoms Stated Complaint: si Time Seen by Provider: 05/18/21 17:57 Source: patient Mode of arrival: ambulatory Limitations: no limitations History of Present Illness HPI Narrative: 40-year-old female with a past medical history of PTSD, bipolar disorder and borderline personality here with complaints of suicidal thoughts with plan to jump off a bridge. Patient also feeling homicidal towards her whom she lives with. She tells me that she ran out of her medications about 5 days ago and could not get hold of her psychiatrist to refill her medications. No hallucinations. Denies substance use. No physical complaints. Related Data Home Medications Medication Instructions Recorded Confirmed buprenorphine 12 mg-naloxone 3 mg 1.5 strip SUBLINGUAL DAILY 02/01/21 05/18/21 sublingual film (Suboxone) clonidine HCl 0.1 mg tablet 1 tab PO BID PRN 02/01/21 05/18/21 olanzapine 15 mg tablet 1 tab PO BEDTIME 02/01/21 05/18/21 omeprazole 40 mg capsule,delayed 1 cap PO DAILY 02/01/21 05/18/21 release venlafaxine 150 mg 150 mg PO DAILY 02/01/21 05/18/21 capsule,extended release 24 hr Allergies Allergy/AdvReac Type Severity Reaction Status Date / Time No Known Allergies Allergy Verified 02/01/21 19:54 Review of Systems Review of Systems: Yes all other systems are reviewed and are negative Constitutional: Constitutional: Reports no additional constitutional complaints, Denies body ache(s), Denies chills, Denies fever(s), Denies headache(s) and Denies weakness Eyes: Eyes: Reports no additional eye complaints and Denies change in vision ENT: Reports system reviewed and no additional complaints, except as documented, Denies dizziness, Denies headache(s), Denies nasal congestion, Denies nasal discharge and Denies neck pain Cardiovascular: Cardiovascular: Reports no additional cardiovascular complaints, Denies chest pain, Denies leg edema and Denies dyspnea Respiratory: Respiratory: Reports no additional respiratory complaints, Denies cough and Denies dyspnea Gastrointestinal: Gastrointestinal: Reports no additional gastrointestinal complaints, Denies abdominal pain, Denies diarrhea, Denies nausea and Denies vomiting Genitourinary: Genitourinary: Reports no additional female genitourinary co mplaints and Denies urinary incontinence Musculoskeletal: Musculoskeletal: Reports no additional musculoskeletal complaints, Denies back pain, Denies arthralgias, Denies joint swelling, Denies neck pain, Denies numbness and Denies tingling Integumentary/Breasts: Skin/Breast: Reports system reviewed and no additional complaints, except as docu and Denies rash Neurologic: Reports system reviewed and no additional complaints, except as documented, Denies Abnormal speech present, Denies dizziness, Denies headache(s), Denies numbness, Denies tingling and Denies weakness Psychiatric: Psychiatric: Denies anxiety, Reports depression, Reports homicidal ideation and Reports suicidal ideation [facility] Past Medical History Attestation statement: The following information was validated with the patient. Source: old records reviewed and nursing notes reviewed Medical History (Updated 05/18/21 @ 20:21 by Calli Carlos NP) Anxiety Bipolar 1 disorder Borderline personality disorder Depression PTSD (post-traumatic stress disorder) Suicide attempt Social History Social History Patient Tobacco Use Status: Current everyday Tobacco user Substance Use Type: Marijuana Advance Directives: No Advance Directives Information Provided: No Physical Exam Vital Signs: Vital Signs: Last Vital Signs Temp 98.2 F 05/18/21 18:00 Pulse 76 05/18/21 18:00 Resp 16 05/18/21 18:00 BP 151/77 H 05/18/21 18:00 Pulse Ox 96 05/18/21 18:00 Body Mass Index 40.7 Const: General: cooperative, healthy appearing, comfortable and no acute distress Orientation/consciousness: patient oriented x3 Limitations: no limitations HENMT: Head: Yes normal to inspection Ears: hearing grossly normal bilatera lly General nose exam: Normal external nose present Face and sinus: Yes normal facial exam Mouth: Normal oral and palatal mucosa present Throat: Yes posterior oropharynx normal Eyes: General: appearance normal, both eyes and all related structures Pupils: Equal, round and reactive pupils present Neck: Neck: Yes normal visual inspection Chest: Chest palpation & inspection: normal inspection of the chest Resp: Effort & Inspection: normal respiratory effort Auscultation: clear to auscultation bilaterally Cardio: Rate: regular rate Rhythm: regular rhythm Peripheral pulses: Peripheral pulses 2+ throughout GI: Inspection: Yes normal to inspection Palpation (GI): Soft to palpation and nontender Auscultation: normal bowel sounds Back/Spine/Pelvis: Thoracic/Lumbar Spine: thoracic and lumbar spine normal to inspection Skin: General skin exam: no rashes or lesions noted Neuro: General: patient oriented x3, no focal motor deficits and normal sensation to monofilament Cranial nerves: Yes CN's II-XII intact bilaterally and Yes Equal, round and reactive pupils present Cognition (Neuro): normal cognition Speech: No Abnormal speech present Gait exam (Neuro): Normal gait present Motor exam (neuro): 5/5 motor strength present throughout Extrem: General: Yes normal to inspection Psych: Other: Flat affect Appearance: disheveled Course Course Course Narrative: 40-year-old female here with suicidal and homicidal ideations. Patient ran out of her medications that 5 days ago and contributes her symptoms to this. No physical complaints. Will need labs, drug screen, BHN evaluation. No concern for acute ingestion or trauma 2100-Sign out to night team pending BHN eval. Medication reconciliation done. Placed in position observation pending disposition MDM - Psych Medical Records Attestation: I reviewed the patient's medical records. Lab Data Attestation: I reviewed the patient's lab results. Result diagrams: 05/18/21 20:03 05/18/21 20:03 Labs: Lab Results 05/18/21 05/18/21 Range/Units 19:50 20:03 WBC 10.0 (4.8-10.8) X10*3/uL RBC 4.32 (4.20-5.50) X10*6/uL Hgb 10.5 L (12.0-16.0) g/dl Hct 33.2 L (37.0-47.0) % MCV 76.9 L (80.0-98.0) fL MCH 24.3 L (27.0-33.0) pg MCHC 31.6 (31.0-35.0) g/dl RDW 15.8 (11.0-16.0) % Plt Count 175 (160-400) X10*3/uL MPV 9.8 (9.4-12.3) fL Immature Gran % (Auto) 0.6 H (0.0-0.4) % Neut % (Auto) 61.5 (45-73) % Lymph % (Auto) 27.9 (20-40) % [place] % (Auto) 7.4 (2-11) % Eos % (Auto) 2.1 (0-4) % Baso % (Auto) 0.5 (0-2) % Lymph # (Auto) 2.8 (1.2-4.9) X10*3/uL [place] # (Auto) 0.7 (0.1-1.2) X10*3/uL Eos # (Auto) 0.2 (0.0-0.4) X10*3/uL Baso # (Auto) 0.1 (0.0-0.2) X10*3/uL Abs Immat Gran (auto) 0.06 H (0.00-0.03) X10*3/uL Absolute Neuts (auto) 6.2 (2.0-8.3) x10*3/uL Absolute Nucleated RBC 0.000 (0.0-0.012) X10*3/uL Nucleated RBC % (auto) 0.0 (0.0-0.2) /100WBC Urine Test NEGATIVE (NEGATIVE) Discharge Plan Discharge Clinical Impression: Acute psychosis, Bipolar disorder Prescriptions: No Action clonidine HCl 0.1 mg tablet 1 tab PO BID PRN (Reason: anxiety) RF: 0 venlafaxine 150 mg capsule,extended release 24hr 150 mg PO DAILY RF: 0 buprenorphine-naloxone [Suboxone] 12-3 mg film 1.5 strip sublingual DAILY RF: 0 olanzapine 15 mg tablet 1 tab PO BEDTIME RF: 0 omeprazole 40 mg capsule,delayed release(DR/EC) 1 cap PO DAILY RF: 0
--- NOTE | 2021-05-18 19:13 | PHA.MEDREC ---
Pharmacy Consult ? Medication Reconciliation Pharmacy has completed the medication reconciliation. Other than suboxone, all other medications taken 6 days ago. Thanks Shivani Rivas Pharm D
[2021-05-18] MEDS: OLANZapine 7.5 MG TABLET 15 MG PO (20:04)
[2021-05-18 20:09] LABS: MANUAL DIFF FLAG NO
[2021-05-18 20:10] LABS: Basophils Absolute Auto 0.1 X10*3/uL (0.0-0.2); Basophils Percent Auto 0.5 % (0-2); Eosinophils Absolute Auto 0.2 X10*3/uL (0.0-0.4); Eosinophils Percent Auto 2.1 % (0-4); Hematocrit 33.2 % (37.0-47.0); Hemoglobin 10.5 g/dl (12.0-16.0); Imm Gran Abs Auto 0.06 X10*3/uL (0.00-0.03); Imm Gran Pct Auto 0.6 % (0.0-0.4); Lymphocytes Absolute Auto 2.8 X10*3/uL (1.2-4.9); Lymphocytes Percent Auto 27.9 % (20-40); Mean Corpuscular HGB Conc 31.6 g/dl (31.0-35.0); Mean Corpuscular Hemoglobin 24.3 pg (27.0-33.0); Mean Corpuscular Volume 76.9 fL (80.0-98.0); Mean Platelet Volume 9.8 fL (9.4-12.3); Monocytes Absolute Auto 0.7 X10*3/uL (0.1-1.2); Monocytes Percent Auto 7.4 % (2-11); Neutrophils Absolute Auto 6.2 x10*3/uL (2.0-8.3); Neutrophils Percent Auto 61.5 % (45-73); Platelet Count 175 X10*3/uL (160-400); Red Blood Count 4.32 X10*6/uL (4.20-5.50); Red Cell Distribution Width 15.8 % (11.0-16.0)
[2021-05-18 20:12] LABS: UPreg QC Valid YES; Urine Pregnancy NEGATIVE (NEGATIVE)
[2021-05-18 20:25] LABS: Amphetamine Screen Urine Not Detected (Not Detect); Barbiturates, Urine Not Detected (Not Detect); Benzodiazepines Screen Urine POSITIVE (Not Detect); Cannabinoid Screen Urine POSITIVE (Not Detect); Cocaine Screen Urine Not Detected (Not Detect); Fentanyl, urine Not Detected (Not Detect); Opiate Screen Urine Not Detected (Not Detect); Phencyclidine Screen Urine Not Detected (Not Detect)
[2021-05-18 20:26] LABS: COVID-19 Test Negative (Negative)
[2021-05-18 20:29] LABS: Ethanol < 10 mg/dL
[2021-05-18] MEDS: diphenhydrAMINE HCL 25 MG TABLET 50 MG PO (21:18)
[2021-05-18] MEDS: LORazepam 1 MG TABLET PO ×2 (21:18→23:40)
[2021-05-18] MEDS: HaloperidoL 5 MG TABLET 10 MG PO (21:18)
[2021-05-18 21:36] LABS: Acetaminophen LAB < 1 mcg/mL (<30); Alanine Aminotransferase 50 U/L (0-31); Albumin Level 3.6 g/dL (3.5-5.0); Alkaline Phosphatase 75 U/L (39-117); Anion Gap 11 (12-20); Aspartate Amino Transferase 62 U/L (5-31); Bilirubin Direct < 0.2 mg/dL (0.0-0.5); Bilirubin Total 0.2 mg/dL (0.0-1.0); Blood Urea Nitrogen 10 mg/dL (9-16); Calcium 9.1 mg/dL (8.4-10.2); Carbon Dioxide 26 mmol/L (22-29); Chloride 104 mmol/L (96-108); Estimated Glomerular Filt Rate > 60; Glucose Random 257 mg/dL (60-115); Potassium 3.7 mmol/L (3.3-5.1); Salicylate < 5.0 mg/dL (15-30); Sodium 137 mmol/L (135-145); Total Protein 6.7 g/dL (6.5-8.0)
[2021-05-18] MEDS: Benztropine Mesylate 1 MG TABLET PO (23:40)
--- NOTE | 2021-05-19 05:46 | PC.NURSE ---
Patient slept through the night, no distress observed/reported, behavior loud, disruptive, demanding, and with tendency to escalate, VSS, medication compliant, disposition per [facility] is section 12 inpatient bed search, will continue to monitor.
[2021-05-19] MEDS: Omeprazole 40 MG CAPSULE.DR PO (06:13)
[2021-05-19 06:26] VITALS: BP 170/109; PULSE 69; RESP 18; TEMP 37; O2SAT 100
[2021-05-19 09:37] VITALS: BP 167/102; PULSE 78; RESP 16; TEMP 36.7; O2SAT 94
[2021-05-19] MEDS: cloNIDine HCL 0.1 MG TABLET PO (09:56)
[2021-05-19] MEDS: Nicotine Polacrilex 2 MG GUM BUCCAL ×2 (09:56→17:48)
[2021-05-19] MEDS: Buprenorphine/Naloxone 12/3 mg FILM 1.5 FILM SUBLINGUAL (09:57)
[2021-05-19] MEDS: Venlafaxine HCl ER 150 MG CAP.ER.24H PO (09:57)
[2021-05-19 16:43] VITALS: BP 122/76; PULSE 77; RESP 16; TEMP 36.4; O2SAT 95
[2021-05-19 17:23] VITALS: BP 128/74; PULSE 76; RESP 16; TEMP 36.4; O2SAT 95
[2021-05-19] MEDS: Acetaminophen 325 MG TABLET 650 MG PO (17:47)
--- NOTE | 2021-05-19 18:23 | PC.ADMIT ---
Pt is a 40y/o female admitted for concerns of suicide. Pt reports feeling suicidal with a plan to jump from a bridge. Pt states she got into argument with her over having an affair with his Ex. Diagnosis: unspecified anxiety disorder, unspecified depression disorder. Covid negative, Tox positive for Benzos and THC. Pt alert and oriented to self, appears confused. Speech is slurred, pt appears sleepy and has difficulty getting words out. Pt denies SI/HI, AH/VH. Provider notified, admission orders obtained.
[2021-05-19] MEDS: OLANZapine 7.5 MG TABLET 15 MG PO (20:16)
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
[2021-05-20 06:00] VITALS: BP 135/78; PULSE 78; RESP 18; TEMP 36.9; O2SAT 100
[2021-05-20] MEDS: Omeprazole 40 MG CAPSULE.DR PO (06:28)
[2021-05-20 08:02] LABS: Estimated Average Glucose 232 mg/dL; Hemoglobin A1c % 9.7 %
[2021-05-20 08:17] LABS: Cholesterol 119 mg/dL; HDL Cholesterol 33 mg/dL; LDL Cholesterol Calculated 71 mg/dl; Magnesium 1.8 mg/dL (1.6-2.6); Triglycerides 75 mg/dL
[2021-05-20] MEDS: Nicotine Polacrilex 2 MG GUM BUCCAL ×2 (08:32→15:05)
[2021-05-20 08:39] LABS: Free T4 (Free Thyroxine) 0.84 ng/dL (0.71-1.85); Thyroid Stimulating Hormone 2.38 uIU/mL (0.32-4.0)
[2021-05-20] MEDS: Venlafaxine HCl ER 37.5 MG CAP.ER.24H 112.5 MG PO (09:10)
[2021-05-20] MEDS: Buprenorphine/Naloxone 12/3 mg FILM 1.5 FILM SUBLINGUAL (09:10)
--- NOTE | 2021-05-20 09:16 | P.PNPSI_ITS ---
Subjective Subjective Date of Service: 05/20/21 Reason For Visit: PTSD, Bipolar disorder,SI Subjective Notes: Conditional Voluntary Medical Problems Affecting Mental Status: No Interim History: Patient was seen and discussed in rounds. Records and treatment plan reviewed. Current medications reviewed. She is settling in. She talked about the fact that she had not taken any of her medications for a week prior to admission. She has had some voices. She states that she continues to be anxious and would like to see if we can increase her p.r.n. clonidine which I did go to 0.2 mg. She denies any side effects and issues of orthostasis discussed. No other complaints. Sleeping adequately. Eating adequately. No other changes were made. Medication Compliance: Yes Side effects from medications: No Review of Systems Review of Systems Yes all other systems are reviewed and are negative Constitutional: Reports no additional constitutional complaints, Denies body ache(s), Denies chills, Denies fever(s), Denies headache(s) and Denies weakness Eyes: Reports no additional eye complaints and Denies change in vision Reports system reviewed and no additional complaints, except as documented, Denies dizziness, Denies headache(s), Denies nasal congestion, Denies nasal discharge and Denies neck pain Cardiovascular: Reports no additional cardiovascular complaints, Denies chest pain, Denies leg edema and Denies dyspnea Respiratory: Reports no additional respiratory complaints, Denies cough and Denies dyspnea Gastrointestinal: Reports no additional gastrointestinal complaints, Denies abdominal pain, Denies diarrhea, Denies nausea and Denies vomiting Genitourinary: Reports no additional female genitourinary complaints and Denies urinary incontinence Musculoskeletal: Reports no additional musculoskeletal complaints, Denies back pain, Denies arthralgias, Denies joint swelling, Denies neck pain, Denies numbness and Denies tingling Skin/Breast: Reports system reviewed and no additional complaints, except as docu and Denies rash Reports system reviewed and no additional complaints, except as documented, Denies Abnormal speech present, Denies dizziness, Denies headache(s), Denies numbness, Denies tingling and Denies weakness Psychiatric: Denies anxiety, Reports depression, Reports homicidal ideation and Reports suicidal ideation Mental Status Exam Mental Status Exam Narrative: Patient was seen and interviewed in rounds today. She is alert, oriented and pleasant. Normal speech. Moderate eye contact. Affect is flat. She denies any active suicidal ideations. No indications of psychotic process. She denies any auditory hallucinations but there have been references to this. Cognitively intact. Judgment is intact Diagnostics Vital Signs (24Hr): Vital Signs - 24 hr 05/19/21 09:37 05/19/21 16:43 05/19/21 17:23 Temperature 98.1 F 97.6 F 97.6 F Pulse Rate 78 77 76 Respiratory Rate 16 16 16 Blood Pressure 167/102 H 122/76 128/74 Pulse Oximetry 94 95 95 05/20/21 06:00 Temperature 98.4 F Pulse Rate 78 Respiratory Rate 18 Blood Pressure 135/78 Pulse Oximetry 100 Body Mass Index 40.7 Labs Results: 05/18/21 20:03 05/18/21 20:03 Labs: Laboratory Results - last 48 hr 05/18/21 05/18/21 05/18/21 19:50 19:50 19:50 WBC RBC Hgb Hct MCV MCH MCHC RDW Plt Count MPV Immature Gran % (Auto) Neut % (Auto) Lymph % (Auto) Pepin % (Auto) Eos % (Auto) Baso % (Auto) Lymph # (Auto) Pepin # (Auto) Eos # (Auto) Baso # (Auto) Abs Immat Gran (auto) Absolute Neuts (auto) Absolute Nucleated RBC Nucleated RBC % (auto) Sodium Potassium Chloride Carbon Dioxide Anion Gap BUN Creatinine Estim Creat Clear Calc Estimated GFR Random Glucose Estimat Average Glucose Hemoglobin A1c % Calcium Magnesium Total Bilirubin Direct Bilirubin AST ALT Alkaline Phosphatase Total Protein Albumin Triglycerides Cholesterol LDL Cholesterol, Calc HDL Cholesterol TSH Free T4 Urine Test NEGATIVE Salicylates Urine Opiates Screen Not Detected Urine Fentanyl Screen Not Detected Acetaminophen Ur Barbiturates Screen Not Detected Ur Phencyclidine Scrn Not Detected Ur Amphetamines Screen Not Detected U Benzodiazepines Scrn POSITIVE H Urine Cocaine Screen Not Detected U Marijuana (THC) Screen POSITIVE H Ethyl Alcohol COVID-19 (DANIEL) Negative COVID-19 Clin Com See Note 05/18/21 05/18/21 05/18/21 20:03 20:03 20:03 WBC 10.0 RBC 4.32 Hgb 10.5 L Hct 33.2 L MCV 76.9 L MCH 24.3 L MCHC 31.6 RDW 15.8 Plt Count 175 MPV 9.8 Immature Gran % (Auto) 0.6 H Neut % (Auto) 61.5 Lymph % (Auto) 27.9 Pepin % (Auto) 7.4 Eos % (Auto) 2.1 Baso % (Auto) 0.5 Lymph # (Auto) 2.8 Pepin # (Auto) 0.7 Eos # (Auto) 0.2 Baso # (Auto) 0.1 Abs Immat Gran (auto) 0.06 H Absolute Neuts (auto) 6.2 Absolute Nucleated RBC 0.000 Nucleated RBC % (auto) 0.0 Sodium 137 Potassium 3.7 Chloride 104 Carbon Dioxide 26 Anion Gap 11 L BUN 10 Creatinine 0.83 Estim Creat Clear Calc 104.0 Estimated GFR > 60 Random Glucose 257 H Estimat Average Glucose Hemoglobin A1c % Calcium 9.1 Magnesium Total Bilirubin 0.2 Direct Bilirubin < 0.2 AST 62 H ALT 50 H Alkaline Phosphatase 75 Total Protein 6.7 Albumin 3.6 Triglycerides Cholesterol LDL Cholesterol, Calc HDL Cholesterol TSH Free T4 Urine Test Salicylates < 5.0 L Urine Opiates Screen Urine Fentanyl Screen Acetaminophen < 1 Ur Barbiturates Screen Ur Phencyclidine Scrn Ur Amphetamines Screen U Benzodiazepines Scrn Urine Cocaine Screen U Marijuana (THC) Screen Ethyl Alcohol < 10 COVID-19 (DANIEL) COVID-[employer] 05/20/21 05/20/21 07:35 07:35 WBC RBC Hgb Hct MCV MCH MCHC RDW Plt Count MPV Immature Gran % (Auto) Neut % (Auto) Lymph % (Auto) Pepin % (Auto) Eos % (Auto) Baso % (Auto) Lymph # (Auto) Pepin # (Auto) Eos # (Auto) Baso # (Auto) Abs Immat Gran (auto) Absolute Neuts (auto) Absolute Nucleated RBC Nucleated RBC % (auto) Sodium Potassium Chloride Carbon Dioxide Anion Gap BUN Creatinine Estim Creat Clear Calc Estimated GFR Random Glucose Estimat Average Glucose 232 Hemoglobin A1c % 9.7 Calcium Magnesium 1.8 Total Bilirubin Direct Bilirubin AST ALT Alkaline Phosphatase Total Protein Albumin Triglycerides 75 Cholesterol 119 LDL Cholesterol, Calc 71 HDL Cholesterol 33 TSH 2.38 Free T4 0.84 Urine Test Salicylates Urine Opiates Screen Urine Fentanyl Screen Acetaminophen Ur Barbiturates Screen Ur Phencyclidine Scrn Ur Amphetamines Screen U Benzodiazepines Scrn Urine Cocaine Screen U Marijuana (THC) Screen Ethyl Alcohol COVID-19 (DANIEL) COVID-[employer] Medications Medications Current Medications Acetaminophen (Acetaminophen 325 Mg Tablet) 650 mg PO Q6H PRN PRN Reason: Headache/Pain Mild Scale (1-3) Last Admin: 05/19/21 17:47 Dose: 650 mg Documented by: Al Hydroxide/Mg Hydroxide (Magnesium Hydrox/Alum Hydrox 30 Ml Oral.Susp) 30 ml PO Q6H PRN PRN Reason: Heartburn/Nausea Buprenorphine/Naloxone (Buprenorphine/Naloxone 12/3 Mg Film) 1.5 film SUBL INGUAL DAILY [facility] Last Admin: 05/19/21 09:57 Dose: 1.5 film Documented by: Clonidine HCl (Clonidine Hcl 0.2 Mg Tablet) 0.2 mg PO BID PRN; Protocol PRN Reason: anxiety Hydroxyzine HCl (Hydroxyzine Hcl 25 Mg Tablet) 25 mg PO BEDTIME PRN PRN Reason: Anxiety Magnesium Hydroxide (Milk Of Magnesia 30 Ml Oral.Susp) 30 ml PO DAILY PRN PRN Reason: Constipation Nicotine Polacrilex (Nicotine Polacrilex 2 Mg Gum) 2 mg BUCCAL QID PRN PRN Reason: [id number] Last Admin: 05/20/21 08:32 Dose: 2 mg Documented by: Olanzapine (Olanzapine 7.5 Mg Tablet) 15 mg PO BEDTIME [facility] Last Admin: 05/19/21 20:16 Dose: 15 mg Documented by: Omeprazole (Omeprazole 40 Mg Capsule.Dr) 40 mg PO DAILY@0630 [facility] Last Admin: 05/20/21 06:28 Dose: 40 mg Documented by: Trazodone HCl (Trazodone Hcl 50 Mg Tablet) 50 mg PO BEDTIME PRN PRN Reason: Insomnia Venlafaxine HCl (Venlafaxine Hcl Er 37.5 Mg Cap.Er.24h) 112.5 mg PO DAILY [facility] Allergies Allergies Allergy/AdvReac Type Severity Reaction Status Date / Time No Known Allergies Allergy Verified 02/01/21 19:54 Assessment & Plan I spent minutes with the patient and/or on the patient floor today, greater than?50% of which was spent counseling/coordinating care. Reason for contiued inpatient stay Substantial Risk for: harm to self
[2021-05-20 11:17] VITALS: BP 174/94; PULSE 71
[2021-05-20] MEDS: cloNIDine HCL 0.2 MG TABLET PO ×2 (11:17→18:17)
[2021-05-20 12:33] VITALS: BP 124/75; PULSE 64
--- NOTE | 2021-05-20 17:09 | PC.NURSE ---
Pt signed a 3-day notice 05/20/21, up on May 24
[2021-05-20 18:17] VITALS: BP 142/67; PULSE 83
[2021-05-20 19:30] VITALS: BP 143/76; PULSE 74; TEMP 36.4
[2021-05-20 20:40] VITALS: BP 143/76; PULSE 74; TEMP 36.4
[2021-05-20] MEDS: OLANZapine 7.5 MG TABLET 15 MG PO (20:42)
[2021-05-20] MEDS: hydrOXYzine HCL 25 MG TABLET PO (20:43)
--- NOTE | 2021-05-21 08:24 | HO.PSYCHPN ---
Subjective Subjective Date of Service: 05/21/21 Reason For Visit: PTSD, Bipolar disorder,SI Subjective Notes: 3 Day Medical Problems Affecting Mental Status: No Interim History: Patient was seen and discussed in rounds. Records reviewed. She states that the increase of the clonidine yesterday has been more helpful with her anxiety. She denies any side effects. Eating and sleeping adequately. She is in her room a lot. She does have a 3 day notice an. No changes were made today and current regimen is maintained Review of Systems Review of Systems Yes all other systems are reviewed and are negative Constitutional: Reports no additional constitutional complaints, Denies body ache(s), Denies chills, Denies fever(s), Denies headache(s) and Denies weakness Eyes: Reports no additional eye complaints and Denies change in vision Reports system reviewed and no additional complaints, except as documented, Denies dizziness, Denies headache(s), Denies nasal congestion, Denies nasal discharge and Denies neck pain Cardiovascular: Reports no additional cardiovascular complaints, Denies chest pain, Denies leg edema and Denies dyspnea Respiratory: Reports no additional respiratory complaints, Denies cough and Denies dyspnea Gastrointestinal: Reports no additional gastrointestinal complaints, Denies abdominal pain, Denies diarrhea, Denies nausea and Denies vomiting Genitourinary: Reports no additional female genitourinary complaints and Denies urinary incontinence Musculoskeletal: Reports no additional musculoskeletal complaints, Denies back pain, Denies arthralgias, Denies joint swelling, Denies neck pain, Denies numbness and Denies tingling Skin/Breast: Reports system reviewed and no additional complaints, except as docu and Denies rash Reports system reviewed and no additional complaints, except as documented, Denies Abnormal speech present, Denies dizziness, Denies headache(s), Denies numbness, Denies tingling and Denies weakness Psychiatric: Denies anxiety, Reports depression, Reports homicidal ideation and Reports suicidal ideation Mental Status Exam Mental Status Exam Narrative: In today's visit she is alert, oriented and pleasant. Normal speech. Good eye contact. Affect is appropriate and varied. No acute signs observed. No SI. No signs of psychosis. No overt anxiety. Cognitively intact. Judgment is intact Diagnostics Vital Signs (24Hr): Vital Signs - 24 hr 05/20/21 11:17 05/20/21 12:33 05/20/21 18:17 Temperature Pulse Rate 71 64 83 Blood Pressure 174/94 H 124/75 142/67 H 05/20/21 19:30 05/20/21 20:40 Temperature 97.6 F 97.6 F Pulse Rate 74 74 Blood Pressure 143/76 H 143/76 H Body Mass Index 40.7 Labs Results: 05/18/21 20:03 05/18/21 20:03 Labs: Laboratory Results - last 48 hr 05/20/21 05/20/21 07:35 07:35 Estimat Average Glucose 232 Hemoglobin A1c % 9.7 Magnesium 1.8 Triglycerides 75 Cholesterol 119 LDL Cholesterol, Calc 71 HDL Cholesterol 33 TSH 2.38 Free T4 0.84 Medications Medications Current Medications Acetaminophen (Acetaminophen 325 Mg Tablet) 650 mg PO Q6H PRN PRN Reason: Headache/Pain Mild Scale (1-3) Last Admin: 05/19/21 17:47 Dose: 650 mg Documented by: Al Hydroxide/Mg Hydroxide (Magnesium Hydrox/Alum Hydrox 30 Ml Oral.Susp) 30 ml PO Q6H PRN PRN Reason: Heartburn/Nausea Buprenorphine/Naloxone (Buprenorphine/Naloxone 12/3 Mg Film) 1.5 film SUBLINGUAL DAILY [facility] Last Admin: 05/20/21 09:10 Dose: 1.5 film Documented by: Clonidine HCl (Clonidine Hcl 0.2 Mg Tablet) 0.2 mg PO BID PRN; Protocol PRN Reason: anxiety Last Admin: 05/20/21 18:17 Dose: 0.2 mg Documented by: Hydroxyzine HCl (Hydroxyzine Hcl 25 Mg Tablet) 25 mg PO BEDTIME PRN PRN Reason: Anxiety Last Admin: 05/20/21 20:43 Dose: 25 mg Documented by: Magnesium Hydroxide (Milk Of Magnesia 30 Ml Oral.Susp) 30 ml PO DAILY PRN PRN Reason: Constipation Nicotine Polacrilex (Nicotine Polacrilex 2 Mg Gum) 2 mg BUCCAL Q2H PRN PRN Reason: Nicotine Cravings Last Admin: 05/20/21 15:05 Dose: 2 mg Documented by: Olanzapine (Olanzapine 7.5 Mg Tablet) 15 mg PO BEDTIME [facility] Last Admin: 05/20/21 20:42 Dose: 15 mg Documented by: Omeprazole (Omeprazole 40 Mg Capsule.Dr) 40 mg PO DAILY@0630 [facility] Last Admin: 05/20/21 06:28 Dose: 40 mg Documented by: Trazodone HCl (Trazodone Hcl 50 Mg Tablet) 50 mg PO BEDTIME PRN PRN Reason: Insomnia Venlafaxine HCl (Venlafaxine Hcl Er 37.5 Mg Cap.Er.24h) 112.5 mg PO DAILY [facility] Last Admin: 05/20/21 09:10 Dose: 112.5 mg Documented by: Allergies Allergies Allergy/AdvReac Type Severity Reaction Status Date / Time No Known Allergies Allergy Verified 02/01/21 19:54 Assessment & Plan Assessment & Plan (1) Bipolar 1 disorder: Status: Acute Code(s): F31.9 - Bipolar disorder, unspecified (2) Post traumatic stress disorder (PTSD): Status: Acute Code(s): F43.10 - Post-traumatic stress disorder, unspecified (3) Borderline personality disorder: Status: Acute Code(s): F60.3 - Borderline personality disorder Assessment and Plan: Alana is a 40-year-old female with a past medical history of PTSD, bipolar I disorder and BPD. She is presenting with command AH, depressed mood, irritability and agitation, impulsivity, and disorganized thought content. Pt reports she does not think olanzapine is helping manage her sx, does not want to be on wt gaining medications. She is interested in re-starting haldol due to reported past benefit. Has been on effexor for over 6 months, thinks it was initially working but now its not. Discussed possibility of effexor inducing manic sx, agreeable to dose decrease from 150 mg to 112.5 mg, will monitor for discontinuation sx. No other med changes made, will defer to primary med team in AM. Monitor response to medications. Monitor for safety in the milieu. Discharge on stabilization. Patient seen. Chart reviewed. Discussed with team. Obtain collateral contact info?as needed 05/21/2021 continue current regimen and plans I spent minutes with the patient and/or on the patient floor today, greater than?50% of which was spent counseling/coordinating care. Reason for contiued inpatient stay Substantial Risk for: other
[2021-05-21] MEDS: Venlafaxine HCl ER 37.5 MG CAP.ER.24H 112.5 MG PO (08:39)
[2021-05-21] MEDS: Omeprazole 40 MG CAPSULE.DR PO (08:39)
[2021-05-21] MEDS: Buprenorphine/Naloxone 12/3 mg FILM 1.5 FILM SUBLINGUAL (08:40)
[2021-05-21 08:46] VITALS: BP 158/89; PULSE 72; RESP 16; TEMP 36.5; O2SAT 97
[2021-05-21 10:41] VITALS: BP 149/86; PULSE 111
[2021-05-21] MEDS: cloNIDine HCL 0.2 MG TABLET PO ×2 (10:41→20:04)
[2021-05-21] MEDS: Nicotine Polacrilex 2 MG GUM BUCCAL ×2 (10:42→15:22)
[2021-05-21 19:50] VITALS: BP 179/106; PULSE 71; RESP 16; TEMP 36.2; O2SAT 95
[2021-05-21 20:04] VITALS: BP 179/106; PULSE 71
[2021-05-21] MEDS: OLANZapine 7.5 MG TABLET 15 MG PO (20:04)
[2021-05-21 21:16] VITALS: BP 132/63; PULSE 65
[2021-05-22 05:59] VITALS: BP 187/95; PULSE 64; RESP 18; TEMP 36.5; O2SAT 96
[2021-05-22] MEDS: Omeprazole 40 MG CAPSULE.DR PO (06:03)
[2021-05-22 06:13] VITALS: BP 187/95; PULSE 64
[2021-05-22] MEDS: cloNIDine HCL 0.2 MG TABLET PO (06:13)
[2021-05-22 06:48] VITALS: BP 139/88; PULSE 69
[2021-05-22] MEDS: Venlafaxine HCl ER 37.5 MG CAP.ER.24H 112.5 MG PO (08:11)
[2021-05-22] MEDS: Buprenorphine/Naloxone 12/3 mg FILM 1.5 FILM SUBLINGUAL (08:12)
[2021-05-22 09:07] LABS: Folate 14.2 ng/mL (> or = 4.0); Vitamin B12 504 pg/mL (200-900)
[2021-05-22] MEDS: Nicotine Polacrilex 2 MG GUM BUCCAL ×2 (09:39→11:50)
--- NOTE | 2021-05-22 17:50 | P.DS_ITS ---
DS: Providers Provider Date of Service: 05/22/21 Date of admission: 05/19/21 12:59 Date of discharge: 05/22/21 Primary care physician: Good Wild MD Admitting clinician: Sobia Mae Attending physician on admission: Jl Abraham Attending physician on discharge: Jl Abraham Discharging clinician: Alba Figueroa DS: Diagnosis Discharge Diagnosis (1) Bipolar 1 disorder: Status: Acute (2) Post traumatic stress disorder (PTSD): Status: Acute (3) Borderline personality disorder: Status: Acute DS: Medications Discharge Medications Home Medications: Home Medications Medication Instructions Recorded Confirmed buprenorphine 12 mg-naloxone 3 mg 1.5 strip SUBLINGUAL DAILY 02/01/21 05/18/21 sublingual film (Suboxone) clonidine HCl 0.1 mg tablet 1 tab PO BID PRN 02/01/21 05/18/21 olanzapine 15 mg tablet 1 tab PO BEDTIME 02/01/21 05/18/21 omeprazole 40 mg capsule,delayed 1 cap PO DAILY 02/01/21 05/18/21 release Previous Rx's Medication Instructions Recorded nicotine (polacrilex) 2 mg gum 2 mg BUCCAL Q2H PRN #0 ea 05/22/21 trazodone 50 mg tablet 50 mg PO BEDTIME PRN #15 tab 05/22/21 venlafaxine 37.5 mg 112.5 mg PO DAILY #0 cap 05/22/21 capsule,extended release 24 hr Mental Status Exam Mental Status Exam Narrative: In today's visit she is alert, oriented and pleasant. Normal speech. Good eye contact. Affect is appropriate and varied. No acute signs observed. No SI. No signs of psychosis. No overt anxiety. Cognitively intact. Judgment is intact Data Data Completed and Pending Completed studies during hospitalization [Text1]: 05/18/21 05/18/21 05/18/21 19:50 19:50 19:50 WBC RBC Hgb Hct MCV MCH MCHC RDW Plt Count MPV Immature Gran % (Auto) Neut % (Auto) Lymph % (Auto) [place] % (Auto) Eos % (Auto) Baso % (Auto) Lymph # (Auto) [place] # (Auto) Eos # (Auto) Baso # (Auto) Abs Immat Gran (auto) Absolute Neuts (auto) Absolute Nucleated RBC Nucleated RBC % (auto) Sodium Potassium Chloride Carbon Dioxide Anion Gap BUN Creatinine Estim Creat Clear Calc Estimated GFR Random Glucose Estimat Average Glucose Hemoglobin A1c % Calcium Magnesium Total Bilirubin Direct Bilirubin AST ALT Alkaline Phosphatase Total Protein Albumin Triglycerides Cholesterol LDL Cholesterol, Calc HDL Cholesterol Vitamin B12 Folate TSH Free T4 Urine Test NEGATIVE Salicylates Urine Opiates Screen Not Detected Urine Fentanyl Screen Not Detected Acetaminophen Ur Barbiturates Screen Not Detected Ur Phencyclidine Scrn Not Detected Ur Amphetamines Screen Not Detected U Benzodiazepines Scrn POSITIVE H Urine Cocaine Screen Not Detected U Marijuana (THC) Screen POSITIVE H Ethyl Alcohol COVID-19 (DANIEL) Negative COVID-19 Clin Com See Note 05/18/21 05/18/21 05/18/21 20:03 20:03 20:03 WBC 10.0 RBC 4.32 Hgb 10.5 L Hct 33.2 L MCV 76.9 L MCH 24.3 L MCHC 31.6 RDW 15.8 Plt Count 175 MPV 9.8 Immature Gran % (Auto) 0.6 H Neut % (Auto) 61.5 Lymph % (Auto) 27.9 [place] % (Auto) 7.4 Eos % (Auto) 2.1 Baso % (Auto) 0.5 Lymph # (Auto) 2.8 [place] # (Auto) 0.7 Eos # (Auto) 0.2 Baso # (Auto) 0.1 Abs Immat Gran (auto) 0.06 H Absolute Neuts (auto) 6.2 Absolute Nucleated RBC 0.000 Nucleated RBC % (auto) 0.0 Sodium 137 Potassium 3.7 Chloride 104 Carbon Dioxide 26 Anion Gap 11 L BUN 10 Creatinine 0.83 Estim Creat Clear Calc 104.0 Estimated GFR > 60 Random Glucose 257 H Estimat Average Glucose Hemoglobin A1c % Calcium 9.1 Magnesium Total Bilirubin 0.2 Direct Bilirubin < 0.2 AST 62 H ALT 50 H Alkaline Phosphatase 75 Total Protein 6.7 Albumin 3.6 Triglycerides Cholesterol LDL Cholesterol, Calc HDL Cholesterol Vitamin B12 Folate TSH Free T4 Urine Test Salicylates < 5.0 L Urine Opiates Screen Urine Fentanyl Screen Acetaminophen < 1 Ur Barbiturates Screen Ur Phencyclidine Scrn Ur Amphetamines Screen U Benzodiazepines Scrn Urine Cocaine Screen U Marijuana (THC) Screen Ethyl Alcohol < 10 COVID-19 (DANIEL) COVID-19 Clin Com 05/20/21 05/20/21 05/20/21 07:35 07:35 07:35 WBC RBC Hgb Hct MCV MCH MCHC RDW Plt Count MPV Immature Gran % (Auto) Neut % (Auto) Lymph % (Auto) [place] % (Auto) Eos % (Auto) Baso % (Auto) Lymph # (Auto) [place] # (Auto) Eos # (Auto) Baso # (Auto) Abs Immat Gran (auto) Absolute Neuts (auto) Absolute Nucleated RBC Nucleated RBC % (auto) Sodium Potassium Chloride Carbon Dioxide Anion Gap BUN Creatinine Estim Creat Clear Calc Estimated GFR Random Glucose Estimat Average Glucose 232 Hemoglobin A1c % 9.7 Calcium Magnesium 1.8 Total Bilirubin Direct Bilirubin AST ALT Alkaline Phosphatase Total Protein Albumin Triglycerides 75 Cholesterol 119 LDL Cholesterol, Calc 71 HDL Cholesterol 33 Vitamin B12 504 Folate 14.2 TSH 2.38 Free T4 0.84 Urine Test Salicylates Urine Opiates Screen Urine Fentanyl Screen Acetaminophen Ur Barbiturates Screen Ur Phencyclidine Scrn Ur Amphetamines Screen U Benzodiazepines Scrn Urine Cocaine Screen U Marijuana (THC) Screen Ethyl Alcohol COVID-19 (DANIEL) COVID-19 Clin Com DS: Summary Hospital Course Hospital Course: Admission to adult psychiatry to address symptoms of PTSD, Bipolar Disorder and situational crisis. Care plan, medication regime and out patient plan of care prior to admission were reviewed. Education was provided regarding management of symptoms, medication and side effects. Nursing and social work therapist worked extensively with patient on collateral contacts, plan of care, education regarding management of symptoms, medications and discharge planning. No medication changes were made during this brief admission. Time spent discussing smoking cessation with patient: 3 to 10 minutes Status at Discharge Cognitive/behavioral status at discharge: non-psychotic, non-suicidal Functional status at discharge: independent ambulation Overall status at discharge: patient is back to baseline Time Spent with Patient Time attestation: Total time spent providing and/or coordinating discharge services: 20 Time spent: Less than 30 minutes Discharge Plan Discharge Patient Disposition: Home, Self-Care Discharge Diagnosis: Bipolar Disorder PTSD Referrals: [facility] [Other] - 1 Week (Please call the above number to obtain your follow-up therapy and psychiatry appointments) Good Wild MD [Primary Care Provider] - 05/31/21 1:45 pm (fax [phone]) Discharge Medications: New venlafaxine 37.5 mg Capsule,Extended Release 24hr 112.5 mg PO DAILY Qty: 0 RF: 0 trazodone 50 mg Tablet 50 mg PO BEDTIME PRN (Reason: Insomnia) Qty: 15 RF: 0 nicotine (polacrilex) 2 mg Gum 2 mg buccal Q2H PRN (Reason: Nicotine Cravings) Qty: 0 RF: 0 clonidine HCl 0.2 mg tablet 0.2 mg PO BEDTIME Qty: 4 RF: 0 Continued clonidine HCl 0.1 mg tablet 1 tab PO BID PRN (Reason: anxiety) RF: 0 buprenorphine-naloxone [Suboxone] 12-3 mg film 1.5 strip sublingual DAILY RF: 0 olanzapine 15 mg tablet 1 tab PO BEDTIME RF: 0 omeprazole 40 mg capsule,delayed release(DR/EC) 1 cap PO DAILY RF: 0 Discontinued venlafaxine 150 mg capsule,extended release 24hr 150 mg PO DAILY RF: 0 Discharge Orders: Discharge Order (Routine); Ordered 05/22/21 Ordered By: Alba Figueroa Diet: advance to usual diet Activity on Discharge: As tolerated Stand Alone Forms: Patient Portal Discharge page, Community Support Care Plan Goals: Mood Stabilization Sobriety Health Concerns: Bipolar Disorder PTSD Plan of Treatment: Take medications as directed Attend follow up appointments Assessment: Non-psychotic, non-suicidal Plan of care reviewed with pt's Zander [phone] who concurs with discharge and has no current concerns about pt returing to the couples home. Discharge Date/Time: 05/22/21 14:40
== END 2021-05-22 14:40 | disposition home or self-care (01) | DRG 753 ==
LOC: HO.ED 05-19 10:33 → HO.PM5 05-19 13:03
PROVIDERS: Clinical Nurse Specialist Psychiatric/Mental Health, Adult; Nurse Practitioner Family; Admitting Provider Psychiatry & Neurology Psychiatry; Emergency Provider Emergency Medicine; PCP Family Medicine; Visit Provider Psychiatry & Neurology Psychiatry
DX: F31.9 Bipolar disorder, unspecified (principal); R45.851 Suicidal ideations; F11.20 Opioid dependence, uncomplicated; F60.3 Borderline personality disorder; F17.210 Nicotine dependence, cigarettes, uncomplicated; Z20.822 Contact with and (suspected) exposure to COVID-19; R45.850 Homicidal ideations; F43.10 Post-traumatic stress disorder, unspecified; Z71.6 Tobacco abuse counseling; Z79.899 Other long term (current) drug therapy
CPT/HCPCS: 36415; 80048; 80061; 80076; 80143; 80179; 80307; 81025; 82077; 82607; 82746; 83036; 83735; 84439; 84443; 85025; 87635; 99285; Q0163

== ENCOUNTER 2022-01-27 04:00 | Emergency (ER) | payer MEDICAID, SELFPAY ==
[2022-01-27 04:06] VITALS: BMI 38.0
[2022-01-27 04:16] VITALS: BP 196/111; PULSE 94; RESP 18; TEMP 36.6; O2SAT 98
--- NOTE | 2022-01-27 04:16 | ED_ITS ---
HPI - Psych General Chief Complaint: Psychiatric Symptoms Stated Complaint: crisis Time Seen by Provider: 01/27/22 04:10 Source: patient and old records reviewed Mode of arrival: EMS Limitations: no limitations History of Present Illness MD complaint: suicidal ideation and feels depressed Duration: getting worse History of same: Yes Relieving factors: none Exacerbating factors: other Context: significant life stressor Associated psychiatric symptoms: depression and suicidal ideation Associated symptoms: denies other symptoms If self harm: admits thoughts of self harm Related Data Home Medications Medication Instructions Recorded Confirmed buprenorphine 12 mg-naloxone 3 mg 1.5 strip sublingual DAILY 01/27/22 01/27/22 sublingual film (Suboxone) clonidine HCl 0.1 mg tablet 1 tab PO TID PRN Anxiety 01/27/22 01/27/22 hydrochlorothiazide 25 mg tablet 1 tab PO DAILY 01/27/22 01/27/22 metformin 500 mg tablet,extended 1 tab PO DAILY 01/27/22 01/27/22 release 24 hr olanzapine 15 mg tablet 1 tab PO BEDTIME 01/27/22 01/27/22 omeprazole 40 mg capsule,delayed 40 mg PO QAM 01/27/22 01/27/22 release quetiapine 25 mg tablet 1 tab PO DAILY PRN Anxiety 01/27/22 01/27/22 topiramate 25 mg tablet 1 tab PO BID 01/27/22 01/27/22 trazodone 50 mg tablet 1 tab PO BEDTIME 01/27/22 01/27/22 venlafaxine 37.5 mg 1 cap PO QAM 01/27/22 01/27/22 capsule,extended release 24 hr venlafaxine 75 mg capsule,extended 1 cap PO QAM 01/27/22 01/27/22 release 24 hr Previous Rx's Medication Instructions Recorded nicotine (polacrilex) 2 mg gum 2 mg buccal Q2H PRN Nicotine 05/22/21 Cravings #0 ea Allergies Allergy/AdvReac Type Severity Reaction Status Date / Time No Known Allergies Allergy Verified 02/01/21 19:54 Review of Systems Review of Systems: Constitutional : No Fever, No Chills ENT/Mouth : No Ear Pain, No Nasal Congestion, No sore throat Eyes: No Eye Pain, No Swelling, No Redness Cardiovascular : No Chest Pain, No SOB Respiratory : No Cough, No Sputum, No Dyspnea Gastrointestinal : No Nausea, No Vomiting, No Diarrhea, No Hematochezia, No Melena Genitourinary : No Dysuria, No Urinary Frequency, No Hematuria Musculoskeletal : No Myalgias Skin : No Skin Lesions, No rash Neuro : No Weakness, No Numbness, No Paresthesias, No Dizziness, No Headache Psych : positive Anxiety, positive Depression, positive SI no HI Heme/Lymph: No Lymphadenopathy Endocrine : No Polyuria, No Polydipsia All other systems reviewed and are negative [facility] Past Medical History Source: old records reviewed Medical History Anxiety Bipolar 1 disorder Borderline personality disorder Depression PTSD (post-traumatic stress disorder) Suicide attempt Social History Social History Household Members: Spouse Housing: Apartment Do you presently have visiting nurse or other home services: No Patient Tobacco Use Status: Current everyday Tobacco user Second Hand Smoke Exposure: Yes Substance Use Type: Marijuana and Caffiene Advance Directives: No Advance Directives Information Provided: No service: No Sexual orientation: Px. was asleep when called for this assessment. Physical Exam Vital Signs: Vital Signs: Last Vital Signs Temp 97.9 F 01/27/22 04:32 Pulse 94 01/27/22 04:32 Resp 18 01/27/22 04:32 BP 196/111 H 01/27/22 04:32 Pulse Ox 98 01/27/22 04:32 O2 Del Method 01/27/22 04:32 BMI result Body Mass Index 38.0 Appearance: Alert. Oriented X3. No acute distress. Anxious, tearful Eyes: Pupils equal, round and reactive to light. ENT: Pharynx normal. Neck: Normal inspection. Neck supple. CVS: Normal heart rate and rhythm. Pulses normal. Respiratory: No respiratory distress. Breath sounds normal. Abdomen: Soft and nontender. Skin: Skin warm and dry. Normal skin color. Normal skin turgor. Extremities: No lower extremity edema. No calf ttp Neuro: Oriented X 3. No motor deficit. No sensory deficit. CN 2-12 intact Course Course Course Narrative: Physician observation started at 444am. Patient placed in physician observation because the patient needed more time for [facility] to assess the need for psych admiss ion. At the time observation was started the patient's vitals were stable, patient is alert and oriented but anxious, Neuro: nonfocal, CV RRR, Lungs clear IV K 40 and 20 PO ordered, will need repeat K after treatment signed out to Dr. Barr pending repeat K and serial EKG MDM - Psych MDM Narrative Medical decision making narrative: 41 yo female with hx of PTSD, bipolar, borderline personality disorder here with c/o SI following issue with her children - at this time will obtain labs, PO a tivan for anxiety, [facility] consult. I did ask if her children were safe and she stated they live in [place]. Lab Data Result diagrams: 01/27/22 05:06 01/27/22 05:05 Labs: Lab Results 01/27/22 01/27/22 01/27/22 Range/Units 04:43 04:43 04:43 WBC (4.8-10.8) X10*3/uL RBC (4.20-5.50) X10*6/uL Hgb (12.0-16.0) g/dl Hct (37.0-47.0) % MCV (80.0-98.0) fL MCH (27.0-33.0) pg MCHC (31.0-35.0) g/dl RDW (11.0-16.0) % Plt Count (160-400) X10*3/uL MPV (9.4-12.3) fL Immature Gran % (Auto) (0.0-0.4) % Neut % (Auto) (45-73) % Lymph % (Auto) (20-40) % Whitley % (Auto) (2-11) % Eos % (Auto) (0-4) % Baso % (Auto) (0-2) % Lymph # (Auto) (1.2-4.9) X10*3/uL Whitley # (Auto) (0.1-1.2) X10*3/uL Eos # (Auto) (0.0-0.4) X10*3/uL Baso # (Auto) (0.0-0.2) X10*3/uL Abs Immat Gran (auto) (0.00-0.03) X10*3/uL Absolute Neuts (auto) (2.0-8.3) x10*3/uL Absolute Nucleated RBC (0.0-0.012) X10*3/uL Nucleated RBC % (auto) (0.0-0.2) /100WBC Sodium (135-145) mmol/L Potassium (3.3-5.1) mmol/L Chloride (96-108) mmol/L Carbon Dioxide (22-29) mmol/L Anion Gap (12-20) BUN (9-16) mg/dL Creatinine (0.5-1.4) mg/dL Estim Creat Clear Calc Estimated GFR POC Glucose (60-115) mg/dL Random Glucose (60-115) mg/dL Calcium (8.4-10.2) mg/dL Total Bilirubin (0.0-1.0) mg/dL Direct Bilirubin (0.0-0.5) mg/dL AST (5-31) U/L ALT (0-31) U/L Alkaline Phosphatase (39-117) U/L Total Protein (6.5-8.0) g/dL Albumin (3.5-5.0) g/dL Urine Test NEGATIVE (NEGATIVE) Urine Opiates Screen Not Detected (Not Detect) Urine Fentanyl Screen Not Detected (Not Detect) Ur Barbiturates Screen Not Detected (Not Detect) Ur Phencyclidine Scrn Not Detected (Not Detect) Ur Amphetamines Screen Not Detected (Not Detect) U Benzodiazepines Scrn Not Detected (Not Detect) Urine Cocaine Screen Not Detected (Not Detect) U Marijuana (THC) Screen POSITIVE H (Not Detect) Ethyl Alcohol mg/dL COVID-19 (DANIEL) Negative (Negative) COVID-19 Clin Com See Note 01/27/22 01/27/22 01/27/22 Range/Units 04:49 05:05 05:06 WBC 9.0 (4.8-10.8) X10*3/uL RBC 5.57 H D (4.20-5.50) X10*6/uL Hgb 12.3 (12.0-16.0) g/dl Hct 40.4 D (37.0-47.0) % MCV 72.5 L (80.0-98.0) fL MCH 22.1 L (27.0-33.0) pg MCHC 30.4 L (31.0-35.0) g/dl RDW 16.7 H (11.0-16.0) % Plt Count 259 D (160-400) X10*3/uL MPV 10.1 (9.4-12.3) fL Immature Gran % (Auto) 0.3 (0.0-0.4) % Neut % (Auto) 57.5 (45-73) % Lymph % (Auto) 30.8 (20-40) % Whitley % (Auto) 8.7 (2-11) % Eos % (Auto) 2.1 (0-4) % Baso % (Auto) 0.6 (0-2) % Lymph # (Auto) 2.8 (1.2-4.9) X10*3/uL Whitley # (Auto) 0.8 (0.1-1.2) X10*3/uL Eos # (Auto) 0.2 (0.0-0.4) X10*3/uL Baso # (Auto) 0.1 (0.0-0.2) X10*3/uL Abs Immat Gran (auto) 0.03 (0.00-0.03) X10*3/uL Absolute Neuts (auto) 5.1 (2.0-8.3) x10*3/uL Absolute Nucleated RBC 0.000 (0.0-0.012) X10*3/uL Nucleated RBC % (auto) 0.0 (0.0-0.2) /100WBC Sodium 132 L (135-145) mmol/L Potassium 2.5 L* D (3.3-5.1) mmol/L Chloride 91 L (96-108) mmol/L Carbon Dioxide 30 H (22-29) mmol/L Anion Gap 14 (12-20) BUN 12 (9-16) mg/dL Creatinine 1.11 (0.5-1.4) mg/dL Estim Creat Clear Calc 74.1 Estimated GFR 54 POC Glucose 350 H* (60-115) mg/dL Random Glucose 389 H* (60-115) mg/dL Calcium 9.7 D (8.4-10.2) mg/dL Total Bilirubin 0.3 (0.0-1.0) mg/dL Direct Bilirubin 0.2 (0.0-0.5) mg/dL AST 39 H (5-31) U/L ALT 41 H (0-31) U/L Alkaline Phosphatase 78 (39-117) U/L Total Protein 8.2 H D (6.5-8.0) g/dL Albumin 4.4 D (3.5-5.0) g/dL Urine Test (NEGATIVE) Urine Opiates Screen (Not Detect) Urine Fentanyl Screen (Not Detect) Ur Barbiturates Screen (Not Detect) Ur Phencyclidine Scrn (Not Detect) Ur Amphetamines Screen (Not Detect) U Benzodiazepines Scrn (Not Detect) Urine Cocaine Screen (Not Detect) U Marijuana (THC) Screen (Not Detect) Ethyl Alcohol < 10 mg/dL COVID-19 (DANIEL) (Negative) COVID-19 Clin Com ECG Data Attestation: I personally reviewed and interpreted this ECG as follows: ECG interpretation date: 01/27/22 ECG interpretation time: 06:11 Interpretation: Rate: 93 Rhythm: NSR [place]: normal Normal P waves. Normal FRANTZ. Normal QRS complex. ST T wave : no CANDY, nonspecific qTC: prolonged prior studies: qtc was 471 in 2020 changed from prior The study has been interpreted contemporaneously by me. . Critical Care Time Critical Care Time Critical Care Time: Yes Total Critical Care Time: 60 Attestation: IV repletions of low K, repeat EKG I attest to this time spent taking care of the patient Discharge Plan Discharge Clinical Impression: Suicidal ideation, Acute hypokalemia, Prolonged QT interval Patient Disposition: Still a Patient Prescriptions: No Action nicotine (polacrilex) 2 mg Gum 2 mg buccal Q2H PRN (Reason: Nicotine Cravings) Qty: 0 0RF quetiapine 25 mg tablet 1 tab PO DAILY PRN (Reason: Anxiety) topiramate 25 mg tablet 1 tab PO BID metformin 500 mg tablet extended release 24 hr 1 tab PO DAILY buprenorphine-naloxone [Suboxone] 12-3 mg film 1.5 strip sublingual DAILY clonidine HCl 0.1 mg tablet 1 tab PO TID PRN (Reason: Anxiety) trazodone 50 mg tablet 1 tab PO BEDTIME omeprazole 40 mg capsule,delayed release(DR/EC) 40 mg PO QAM olanzapine 15 mg tablet 1 tab PO BEDTIME venlafaxine 37.5 mg capsule,extended release 24hr 1 cap PO QAM venlafaxine 75 mg capsule,extended release 24hr 1 cap PO QAM hydrochlorothiazide 25 mg tablet 1 tab PO DAILY
[2022-01-27 04:32] VITALS: BP 196/111; PULSE 94; RESP 18; TEMP 36.6; O2SAT 98
[2022-01-27 04:54] LABS: Glucose, Whole Blood 350 mg/dL (60-115)
[2022-01-27] MEDS: LORazepam 1 MG TABLET 2 MG PO (04:56)
--- NOTE | 2022-01-27 04:59 | PC.NURSE ---
Patient just arrived, triage completed, patient tearful/Ativan 2 mg po administered as ordered/pending effect, POC 350 provider notified, [facility] referral completed/confirmed/pending ETA, med rec completed/pending provider's approval, lad draw in the process patient complaint, will continue to monitor.
[2022-01-27 05:11] LABS: Basophils Absolute Auto 0.1 X10*3/uL (0.0-0.2); Basophils Percent Auto 0.6 % (0-2); Eosinophils Absolute Auto 0.2 X10*3/uL (0.0-0.4); Eosinophils Percent Auto 2.1 % (0-4); Hematocrit 40.4 % (37.0-47.0); Hemoglobin 12.3 g/dl (12.0-16.0); Imm Gran Abs Auto 0.03 X10*3/uL (0.00-0.03); Imm Gran Pct Auto 0.3 % (0.0-0.4); Lymphocytes Absolute Auto 2.8 X10*3/uL (1.2-4.9); Lymphocytes Percent Auto 30.8 % (20-40); MANUAL DIFF FLAG NO; Mean Corpuscular HGB Conc 30.4 g/dl (31.0-35.0); Mean Corpuscular Hemoglobin 22.1 pg (27.0-33.0); Mean Corpuscular Volume 72.5 fL (80.0-98.0); Mean Platelet Volume 10.1 fL (9.4-12.3); Monocytes Absolute Auto 0.8 X10*3/uL (0.1-1.2); Monocytes Percent Auto 8.7 % (2-11); Neutrophils Absolute Auto 5.1 x10*3/uL (2.0-8.3); Neutrophils Percent Auto 57.5 % (45-73); Platelet Count 259 X10*3/uL (160-400); Red Blood Count 5.57 X10*6/uL (4.20-5.50); Red Cell Distribution Width 16.7 % (11.0-16.0)
[2022-01-27 05:20] LABS: UPreg QC Valid YES; Urine Pregnancy NEGATIVE (NEGATIVE)
[2022-01-27 05:28] LABS: Amphetamine Screen Urine Not Detected (Not Detect); Barbiturates, Urine Not Detected (Not Detect); Benzodiazepines Screen Urine Not Detected (Not Detect); Cannabinoid Screen Urine POSITIVE (Not Detect); Cocaine Screen Urine Not Detected (Not Detect); Fentanyl, urine Not Detected (Not Detect); Opiate Screen Urine Not Detected (Not Detect); Phencyclidine Screen Urine Not Detected (Not Detect)
[2022-01-27 05:30] LABS: COVID-19 Test Negative (Negative); IDNOW Serial# 16C4AD1C
[2022-01-27 05:31] LABS: Alanine Aminotransferase 41 U/L (0-31); Albumin Level 4.4 g/dL (3.5-5.0); Alkaline Phosphatase 78 U/L (39-117); Anion Gap 14 (12-20); Aspartate Amino Transferase 39 U/L (5-31); Bilirubin Direct 0.2 mg/dL (0.0-0.5); Bilirubin Total 0.3 mg/dL (0.0-1.0); Blood Urea Nitrogen 12 mg/dL (9-16); Calcium 9.7 mg/dL (8.4-10.2); Carbon Dioxide 30 mmol/L (22-29); Chloride 91 mmol/L (96-108); Creatinine Clr Calc Pharmacy 74.1; Estimated Glomerular Filt Rate 54; Ethanol < 10 mg/dL; Sodium 132 mmol/L (135-145); Total Protein 8.2 g/dL (6.5-8.0)
[2022-01-27 05:36] LABS: Glucose Random 389 mg/dL (60-115); Potassium 2.5 mmol/L (3.3-5.1)
--- NOTE | 2022-01-27 05:49 | ECG_ITS ---
Test Reason : HIGH K Blood Pressure : / mmHG Vent. Rate : 093 BPM Atrial Rate : 093 BPM P-R Int : 140 ms QRS Dur : 080 ms QT Int : 490 ms P-R-T Axes : 059 015 -19 degrees QTc Int : 610 ms Normal sinus rhythm Nonspecific T wave abnormality Prolonged QT interval Abnormal ECG When compared with ECG of 01-FEB-2021 22:53, Nonspecific T wave abnormality has replaced inverted T waves in Lateral leads QT has lengthened Referred By: Nataliia Estevez Electronically Signed By:Daniel Brice
[2022-01-27] MEDS: Potassium Chloride ER 20 MEQ TAB.ER.PRT PO ×2 (06:22→06:23)
[2022-01-27] MEDS: Potassium Chloride/H20 10 MEQ/100 ML PIGGYBACK 100 MEQ IV ×4 (06:23→11:32)
[2022-01-27] MEDS: Magnesium Sulfate/H2O 2 GM/50 ML PIGGYBACK IV (06:24)
[2022-01-27 07:30] LABS: Glucose, Whole Blood 369 mg/dL (60-115)
[2022-01-27 07:41] LABS: Magnesium 1.7 mg/dL (1.6-2.6)
--- NOTE | 2022-01-27 08:00 | ECG_ITS ---
Test Reason : RE CHECK Blood Pressure : / mmHG Vent. Rate : 084 BPM Atrial Rate : 084 BPM P-R Int : 156 ms QRS Dur : 088 ms QT Int : 434 ms P-R-T Axes : 022 002 -19 degrees QTc Int : 512 ms Normal sinus rhythm Minimal voltage criteria for LVH, may be normal variant ( R in aVL ) Nonspecific T wave abnormality Abnormal ECG When compared with ECG of 27-JAN-2022 05:51, QT has shortened Referred By: Nataliia Estevez Electronically Signed By:Daniel Brice
[2022-01-27] MEDS: cloNIDine HCL 0.1 MG TABLET PO (08:05)
--- NOTE | 2022-01-27 08:33 | PC.NURSE ---
bhn at bedside to see pt
[2022-01-27] MEDS: 0.9 % Sodium Chloride 1,000 ML 999 ML IV (08:49)
--- NOTE | 2022-01-27 11:40 | PHA.MEDREC ---
Pharmacy Consult ? Medication Reconciliation Pharmacy has completed the medication reconciliation. Patient reports taking venlafaxine 150 mg instead of venlafaxine 75 +37.5 mg together. Venlafaxine 150 mg has not been filled since 2021. Patient report Suboxone is currently at her pharmacy to hardeep, pharmacy claim history reports last filled 01/11/22. rAeli Esparza, PharmD
[2022-01-27 12:56] LABS: Anion Gap 12 (12-20); Blood Urea Nitrogen 9 mg/dL (9-16); Calcium 8.1 mg/dL (8.4-10.2); Carbon Dioxide 25 mmol/L (22-29); Chloride 101 mmol/L (96-108); Creatinine Clr Calc Pharmacy 99.2; Estimated Glomerular Filt Rate > 60; Glucose Random 380 mg/dL (60-115); Magnesium 1.7 mg/dL (1.6-2.6); Potassium 2.8 mmol/L (3.3-5.1); Sodium 135 mmol/L (135-145)
[2022-01-27 13:07] VITALS: BP 119/71; PULSE 85; RESP 18; TEMP 37.1; O2SAT 97
== END 2022-01-27 13:52 ==
PROVIDERS: Student in an Organized Health Care Education/Training Program; Emergency Provider Emergency Medicine; PCP Nurse Practitioner Adult Health
DX: R45.851 Suicidal ideations (principal); E87.6 Hypokalemia; R94.31 Abnormal electrocardiogram [ECG] [EKG]; F31.9 Bipolar disorder, unspecified; F41.9 Anxiety disorder, unspecified; F60.3 Borderline personality disorder; F43.10 Post-traumatic stress disorder, unspecified; Z20.822 Contact with and (suspected) exposure to COVID-19; F11.20 Opioid dependence, uncomplicated; F17.200 Nicotine dependence, unspecified, uncomplicated; F12.90 Cannabis use, unspecified, uncomplicated; Z91.51 Personal history of suicidal behavior; Z79.84 Long term (current) use of oral hypoglycemic drugs; Z79.899 Other long term (current) drug therapy
CPT/HCPCS: 36415; 80048; 80076; 80307; 81025; 82077; 82947; 83735; 85025; 87635; 93005; 96361; 96365; 96366; 99284; J3475

== ENCOUNTER 2022-03-25 23:24 | Inpatient (IN) | payer OTHER, MEDICAID, SELFPAY ==
[2022-03-25 23:57] VITALS: BP 151/101; PULSE 114; RESP 16; TEMP 37.4; O2SAT 96; BMI 36.9
--- NOTE | 2022-03-26 | ECG_ITS ---
Test Reason : OVERDOSE Blood Pressure : / mmHG Vent. Rate : 108 BPM Atrial Rate : 108 BPM P-R Int : 096 ms QRS Dur : 082 ms QT Int : 488 ms P-R-T Axes : 000 008 075 degrees QTc Int : 653 ms Sinus tachycardia with short MN Nonspecific T wave abnormality Prolonged QT Abnormal ECG When compared with ECG of 27-JAN-2022 07:57, MN interval has decreased Nonspecific T wave abnormality, improved in Inferior leads Nonspecific T wave abnormality, worse in Lateral leads QT has lengthened Referred By: Nahomy Barr Electronically Signed By:CIPRIANO BENITES
--- NOTE | 2022-03-26 00:16 | ECG_ITS ---
Test Reason : REPEAT Blood Pressure : / mmHG Vent. Rate : 072 BPM Atrial Rate : 072 BPM P-R Int : 194 ms QRS Dur : 086 ms QT Int : 450 ms P-R-T Axes : 027 011 044 degrees QTc Int : 492 ms Normal sinus rhythm Prolonged QT Abnormal ECG When compared with ECG of 26-MAR-2022 00:12, Vent. rate has decreased BY 36 BPM T wave inversion no longer evident in Anterior leads QT has shortened Referred By: Nahomy Barr Electronically Signed By:CIPRIANO BENITES
--- NOTE | 2022-03-26 00:22 | ED_ITS ---
HPI - Psych General Chief Complaint: Psychiatric Symptoms Stated Complaint: CRISIS Wants to Kill Herself Time Seen by Provider: 03/26/22 00:15 Source: patient Mode of arrival: ambulatory History of Present Illness HPI Narrative: 41-year-old female who presents with complaints suicidal ideation as well as suicide attempt by taking 8-0.1 mg clonidine pills prior to presentation. Patient states that ?I just could not take it anymore? and says that ?CHD is making me file a 51 a on my ?. Related Data Home Medications Medication Instructions Recorded Confirmed albuterol sulfate 90 mcg/actuation 2 puff inhalation Q6H PRN Wheezing 01/27/22 01/27/22 aerosol inhaler (ProAir HFA) buprenorphine 12 mg-naloxone 3 mg 1.5 strip sublingual DAILY 01/27/22 01/27/22 sublingual film (Suboxone) clonidine HCl 0.1 mg tablet 0.1 mg PO TID 01/27/22 01/27/22 hydrochlorothiazide 25 mg tablet 25 mg PO DAILY 01/27/22 01/27/22 metformin 500 mg tablet,extended 500 mg PO DAILY 01/27/22 01/27/22 release 24 hr olanzapine 15 mg tablet 15 mg PO BEDTIME 01/27/22 01/27/22 omeprazole 40 mg capsule,delayed 40 mg PO QAM 01/27/22 01/27/22 release quetiapine 25 mg tablet 25 mg PO DAILY 01/27/22 01/27/22 topiramate 25 mg tablet 1 tab PO BEDTIME 01/27/22 01/27/22 trazodone 50 mg tablet 1 tab PO BEDTIME 01/27/22 01/27/22 venlafaxine 150 mg 1 cap PO QAM 01/27/22 01/27/22 capsule,extended release 24 hr Previous Rx's Medication Instructions Recorded nicotine (polacrilex) 2 mg gum 2 mg buccal Q2H PRN Nicotine 05/22/21 Cravings #0 ea Allergies Allergy/AdvReac Type Severity Reaction Status Date / Time No Known Allergies Allergy Verified 02/01/21 19:54 Review of Systems Review of Systems: Pertinent positives and negatives as stated in HPI 10 point review of systems is otherwise negative. PMFSH Past Medical History Source: nursing notes reviewed Medical History Anxiety Bipolar 1 disorder Borderline personality disorder Depression PTSD (post-traumatic stress disorder) Suicide attempt Social History Social History Household Members: Spouse Housing: Apartment Do you presently have visiting nurse or other home services: No Patient Tobacco Use Status: Current everyday Tobacco user Second Hand Smoke Exposure: Yes Substance Use Type: Marijuana and Caffiene Advance Directives: No service: No Sexual orientation: Px. was asleep when called for this assessment. Physical Exam Vital Signs: Vital Signs: Last Vital Signs Temp 98.9 F 03/26/22 01:39 Pulse 67 03/26/22 06:04 Resp 16 03/26/22 06:04 BP 110/66 03/26/22 06:04 Pulse Ox 97 03/26/22 06:04 O2 Del Method 03/26/22 06:04 BMI result Body Mass Index 36.9 VITAL SIGNS: Reviewed. GENERAL: Well developed, well nourished, in no acute distress. HEAD: Normocephalic/atraumatic EYES: PERRLA, EOMI EARS: Ext canals without abnormality OROPHARYNX: no oral lesions noted, posterior pharynx clear LUNGS: Normal breath sounds. No adventitious sounds or accessory muscle use. SpO2<96> CARDIOVASCULAR: Regular rate and rhythm without noted murmurs ABDOMEN: Soft, non-tender, non-distended with bowel sounds. MUSCULOSKELETAL: No tenderness, deformities, or effusions noted on gross inspection. EXTREMITIES: No cyanosis, clubbing or edema. SKIN: Inspection of the skin reveals no rashes NEUROLOGIC: Alert and oriented x 4. Strength and sensation to light touch were grossly intact x 4, cranial nerves 2-12 are grossly intact. PSYCH: Depressed affect, calm, cooperative Course Course Course Narrative: 41-year-old female with history and clinical presentation consistent with suicide attempt with overdose on clonidine. Discussed with poison control who with this time recommends 2 g Mg sulfate for QTC prolongation and repeat EKG afterwards. Repeat EKG looks significantly improved with normalization of the OH interval and QTC has also significantly improved and is currently 492. 0540: I discussed this case with Cardiology as patient had detectable troponins but otherwise asymptomatic. I suspect is related with patient's intentional overdose, Dr. Sarah agreed with serial troponins and if they continue to rise he recommends an echo. Speaking with poison Control again after lab work has been returned, recommend observation for 6 hours and repeat EKG at 06:30. Otherwise, patient's lab work demonstrates hyperglycemia however she was eating peanut butter jelly sandwiches just prior to this. Patient is otherwise medically cleared for BHN evaluation. Reevaluation(s) Reevaluation #1: Patient placed in physician observation because the patient needed more time for repeat lab work and evaluation by the behavioral team. At the time observation was started the patient's vital signs were stable, patient is alert and oriented, neuro: Nonfocal, CV RRR, lungs clear Time: 07:18 MDM - Psych Lab Data Result diagrams: 03/26/22 01:16 03/26/22 01:16 Labs: Lab Results 03/26/22 03/26/22 03/26/22 Range/Units 00:31 00:31 00:31 WBC (4.8-10.8) X10*3/uL RBC (4.20-5.50) X10*6/uL Hgb (12.0-16.0) g/dl Hct (37.0-47.0) % MCV (80.0-98.0) fL MCH (27.0-33.0) pg MCHC (31.0-35.0) g/dl RDW (11.0-16.0) % Plt Count (160-400) X10*3/uL MPV (9.4-12.3) fL Immature Gran % (Auto) (0.0-0.4) % Neut % (Auto) (45-73) % Lymph % (Auto) (20-40) % [place] % (Auto) (2-11) % Eos % (Auto) (0-4) % Baso % (Auto) (0-2) % Lymph # (Auto) (1.2-4.9) X10*3/uL [place] # (Auto) (0.1-1.2) X10*3/uL Eos # (Auto) (0.0-0.4) X10*3/uL Baso # (Auto) (0.0-0.2) X10*3/uL Abs Immat Gran (auto) (0.00-0.03) X10*3/uL Absolute Neuts (auto) (2.0-8.3) x10*3/uL Absolute Nucleated RBC (0.0-0.012) X10*3/uL Nucleated RBC % (auto) (0.0-0.2) /100WBC PT (10.0-13.1) SEC INR (0.9-1.1) Sodium (135-145) mmol/L Potassium (3.3-5.1) mmol/L Chloride (96-108) mmol/L Carbon Dioxide (22-29) mmol/L Anion Gap (12-20) BUN (9-16) mg/dL Creatinine (0.5-1.4) mg/dL Estim Creat Clear Calc Estimated GFR POC Glucose (60-115) mg/dL Random Glucose (60-115) mg/dL Calcium (8.4-10.2) mg/dL Magnesium (1.6-2.6) mg/dL Total Bilirubin (0.0-1.0) mg/dL AST (5-31) U/L ALT (0-31) U/L Alkaline Phosphatase (39-117) U/L Troponin I High Sens (<3.5-17.0) ng/L Total Protein (6.5-8.0) g/dL Albumin (3.5-5.0) g/dL Urine Color Yellow Urine Appearance Clear Urine pH 5.5 (5.0-9.0) Ur Specific [place] >= 1.030 H (1.005-1.025) Urine Protein Negative (Neg-Trace) mg/dL Urine Glucose (UA) >=1000 H (Negative) mg/dL Urine Ketones Trace (Negative) mg/dL Urine Blood Negative (Negative) Urine Nitrite Negative (Negative) Ur Leukocyte Esterase Negative (Negative) Urine RBC 0-2 (0-2) /HPF Urine WBC 0-5 (0-5) /HPF Ur Squamous Epith Cells 0-2 (0-2) /HPF Urine Bacteria None Seen (None Seen) Hyaline Casts 0-2 (0-2) /LPF Salicylates (15-30) mg/dL Urine Opiates Screen Not Detected (Not Detect) Urine Fentanyl Screen Not Detected (Not Detect) Acetaminophen (<30) mcg/mL Ur Barbiturates Screen Not Detected (Not Detect) Ur Phencyclidine Scrn Not Detected (Not Detect) Ur Amphetamines Screen Not Detected (Not Detect) U Benzodiazepines Scrn Not Detected (Not Detect) Urine Cocaine Screen Not Detected (Not Detect) U Marijuana (THC) Screen POSITIVE H (Not Detect) Ethyl Alcohol mg/dL COVID-19 (DANIEL) Negative (Negative) COVID-19 Clin Com See Note 03/26/22 03/26/22 03/26/22 Range/Units 01:16 01:16 01:16 WBC 10.8 (4.8-10.8) X10*3/uL RBC 4.54 (4.20-5.50) X10*6/uL Hgb 10.3 L (12.0-16.0) g/dl Hct 33.8 L (37.0-47.0) % MCV 74.4 L (80.0-98.0) fL MCH 22.7 L (27.0-33.0) pg MCHC 30.5 L (31.0-35.0) g/dl RDW 16.9 H (11.0-16.0) % Plt Count 224 (160-400) X10*3/uL MPV 10.0 (9.4-12.3) fL Immature Gran % (Auto) 0.4 (0.0-0.4) % Neut % (Auto) 70.8 (45-73) % Lymph % (Auto) 20.6 (20-40) % [place] % (Auto) 6.9 (2-11) % Eos % (Auto) 0.9 (0-4) % Baso % (Auto) 0.4 (0-2) % Lymph # (Auto) 2.2 (1.2-4.9) X10*3/uL [place] # (Auto) 0.7 (0.1-1.2) X10*3/uL Eos # (Auto) 0.1 (0.0-0.4) X10*3/uL Baso # (Auto) 0.0 (0.0-0.2) X10*3/uL Abs Immat Gran (auto) 0.04 H (0.00-0.03) X10*3/uL Absolute Neuts (auto) 7.7 (2.0-8.3) x10*3/uL Absolute Nucleated RBC 0.000 (0.0-0.012) X10*3/uL Nucleated RBC % (auto) 0.0 (0.0-0.2) /100WBC PT 12.0 (10.0-13.1) SEC INR 1.0 (0.9-1.1) Sodium 134 L (135-145) mmol/L Potassium 4.1 D (3.3-5.1) mmol/L Chloride 97 (96-108) mmol/L Carbon Dioxide 25 (22-29) mmol/L Anion Gap 16 (12-20) BUN 10 (9-16) mg/dL Creatinine 1.09 (0.5-1.4) mg/dL Estim Creat Clear Calc 74.2 Estimated GFR 55 POC Glucose (60-115) mg/dL Random Glucose 498 H* (60-115) mg/dL Calcium 9.0 D (8.4-10.2) mg/dL Magnesium 1.7 (1.6-2.6) mg/dL Total Bilirubin 0.3 (0.0-1.0) mg/dL AST 28 (5-31) U/L ALT 28 (0-31) U/L Alkaline Phosphatase 69 (39-117) U/L Troponin I High Sens (<3.5-17.0) ng/L Total Protein 7.2 (6.5-8.0) g/dL Albumin 3.8 (3.5-5.0) g/dL Urine Color Urine Appearance Urine pH (5.0-9.0) Ur Specific [place] (1.005-1.025) Urine Protein (Neg-Trace) mg/dL Urine Glucose (UA) (Negative) mg/dL Urine Ketones (Negative) mg/dL Urine Blood (Negative) Urine Nitrite (Negative) Ur Leukocyte Esterase (Negative) Urine RBC (0-2) /HPF Urine WBC (0-5) /HPF Ur Squamous Epith Cells (0-2) /HPF Urine Bacteria (None Seen) Hyaline Casts (0-2) /LPF Salicylates < 5.0 L (15-30) mg/dL Urine Opiates Screen (Not Detect) Urine Fentanyl Screen (Not Detect) Acetaminophen < 1 (<30) mcg/mL Ur Barbiturates Screen (Not Detect) Ur Phencyclidine Scrn (Not Detect) Ur Amphetamines Screen (Not Detect) U Benzodiazepines Scrn (Not Detect) Urine Cocaine Screen (Not Detect) U Marijuana (THC) Screen (Not Detect) Ethyl Alcohol mg/dL COVID-19 (DANIEL) (Negative) COVID-19 Clin Com 03/26/22 03/26/22 03/26/22 Range/Units 01:16 01:16 02:59 WBC (4.8-10.8) X10*3/uL RBC (4.20-5.50) X10*6/uL Hgb (12.0-16.0) g/dl Hct (37.0-47.0) % MCV (80.0-98.0) fL MCH (27.0-33.0) pg MCHC (31.0-35.0) g/dl RDW (11.0-16.0) % Plt Count (160-400) X10*3/uL MPV (9.4-12.3) fL Immature Gran % (Auto) (0.0-0.4) % Neut % (Auto) (45-73) % Lymph % (Auto) (20-40) % [place] % (Auto) (2-11) % Eos % (Auto) (0-4) % Baso % (Auto) (0-2) % Lymph # (Auto) (1.2-4.9) X10*3/uL [place] # (Auto) (0.1-1.2) X10*3/uL Eos # (Auto) (0.0-0.4) X10*3/uL Baso # (Auto) (0.0-0.2) X10*3/uL Abs Immat Gran (auto) (0.00-0.03) X10*3/uL Absolute Neuts (auto) (2.0-8.3) x10*3/uL Absolute Nucleated RBC (0.0-0.012) X10*3/uL Nucleated RBC % (auto) (0.0-0.2) /100WBC PT (10.0-13.1) SEC INR (0.9-1.1) Sodium (135-145) mmol/L Potassium (3.3-5.1) mmol/L Chloride (96-108) mmol/L Carbon Dioxide (22-29) mmol/L Anion Gap (12-20) BUN (9-16) mg/dL Creatinine (0.5-1.4) mg/dL Estim Creat Clear Calc Estimated GFR POC Glucose (60-115) mg/dL Random Glucose (60-115) mg/dL Calcium (8.4-10.2) mg/dL Magnesium (1.6-2.6) mg/dL Total Bilirubin (0.0-1.0) mg/dL AST (5-31) U/L ALT (0-31) U/L Alkaline Phosphatase (39-117) U/L Troponin I High Sens 19.8 H 34.2 H D (<3.5-17.0) ng/L Total Protein (6.5-8.0) g/dL Albumin (3.5-5.0) g/dL Urine Color Urine Appearance Urine pH (5.0-9.0) Ur Specific [place] (1.005-1.025) Urine Protein (Neg-Trace) mg/dL Urine Glucose (UA) (Negative) mg/dL Urine Ketones (Negative) mg/dL Urine Blood (Negative) Urine Nitrite (Negative) Ur Leukocyte Esterase (Negative) Urine RBC (0-2) /HPF Urine WBC (0-5) /HPF Ur Squamous Epith Cells (0-2) /HPF Urine Bacteria (None Seen) Hyaline Casts (0-2) /LPF Salicylates (15-30) mg/dL Urine Opiates Screen (Not Detect) Urine Fentanyl Screen (Not Detect) Acetaminophen (<30) mcg/mL Ur Barbiturates Screen (Not Detect) Ur Phencyclidine Scrn (Not Detect) Ur Amphetamines Screen (Not Detect) U Benzodiazepines Scrn (Not Detect) Urine Cocaine Screen (Not Detect) U Marijuana (THC) Screen (Not Detect) Ethyl Alcohol < 10 mg/dL COVID-19 (DANIEL) (Negative) COVID-19 Clin Com 03/26/22 Range/Units 06:55 WBC (4.8-10.8) X10*3/uL RBC (4.20-5.50) X10*6/uL Hgb (12.0-16.0) g/dl Hct (37.0-47.0) % MCV (80.0-98.0) fL MCH (27.0-33.0) pg MCHC (31.0-35.0) g/dl RDW (11.0-16.0) % Plt Count (160-400) X10*3/uL MPV (9.4-12.3) fL Immature Gran % (Auto) (0.0-0.4) % Neut % (Auto) (45-73) % Lymph % (Auto) (20-40) % [place] % (Auto) (2-11) % Eos % (Auto) (0-4) % Baso % (Auto) (0-2) % Lymph # (Auto) (1.2-4.9) X10*3/uL [place] # (Auto) (0.1-1.2) X10*3/uL Eos # (Auto) (0.0-0.4) X10*3/uL Baso # (Auto) (0.0-0.2) X10*3/uL Abs Immat Gran (auto) (0.00-0.03) X10*3/uL Absolute Neuts (auto) (2.0-8.3) x10*3/uL Absolute Nucleated RBC (0.0-0.012) X10*3/uL Nucleated RBC % (auto) (0.0-0.2) /100WBC PT (10.0-13.1) SEC INR (0.9-1.1) Sodium (135-145) mmol/L Potassium (3.3-5.1) mmol/L Chloride (96-108) mmol/L Carbon Dioxide (22-29) mmol/L Anion Gap (12-20) BUN (9-16) mg/dL Creatinine (0.5-1.4) mg/dL Estim Creat Clear Calc Estimated GFR POC Glucose 406 H* (60-115) mg/dL Random Glucose (60-115) mg/dL Calcium (8.4-10.2) mg/dL Magnesium (1.6-2.6) mg/dL Total Bilirubin (0.0-1.0) mg/dL AST (5-31) U/L ALT (0-31) U/L Alkaline Phosphatase (39-117) U/L Troponin I High Sens (<3.5-17.0) ng/L Total Protein (6.5-8.0) g/dL Albumin (3.5-5.0) g/dL Urine Color Urine Appearance Urine pH (5.0-9.0) Ur Specific [place] (1.005-1.025) Urine Protein (Neg-Trace) mg/dL Urine Glucose (UA) (Negative) mg/dL Urine Ketones (Negative) mg/dL Urine Blood (Negative) Urine Nitrite (Negative) Ur Leukocyte Esterase (Negative) Urine RBC (0-2) /HPF Urine WBC (0-5) /HPF Ur Squamous Epith Cells (0-2) /HPF Urine Bacteria (None Seen) Hyaline Casts (0-2) /LPF Salicylates (15-30) mg/dL Urine Opiates Screen (Not Detect) Urine Fentanyl Screen (Not Detect) Acetaminophen (<30) mcg/mL Ur Barbiturates Screen (Not Detect) Ur Phencyclidine Scrn (Not Detect) Ur Amphetamines Screen (Not Detect) U Benzodiazepines Scrn (Not Detect) Urine Cocaine Screen (Not Detect) U Marijuana (THC) Screen (Not Detect) Ethyl Alcohol mg/dL COVID-19 (DANIEL) (Negative) COVID-19 Clin Com ECG Data Attestation: I personally reviewed and interpreted this ECG as follows: Prior ECG tracings: available for review Interpretation: Sinus tachycardia with short OH -96, no STEMI, OH-96, QRS within normal limits, QTC is prolonged- [id number]: NSR, HR -72, no STEMI, OH/QRS within normal limits and QTC much improved at 492 0518: NSR with first-degree AV block, HR-66, no STEMI, QRS/QTC are within normal limits. Critical Care Time Critical Care Time Critical Care Time: Yes Total Critical Care Time: 30 Attestation: I personally attest to this time spent taking care of the patient. Discharge Plan Discharge Clinical Impression: Suicide attempt, Bipolar 1 disorder, Post traumatic stress disorder (PTSD), Borderline personality disorder, Intentional overdose Patient Disposition: Still a Patient Prescriptions: No Action nicotine (polacrilex) 2 mg Gum 2 mg buccal Q2H PRN (Reason: Nicotine Cravings) Qty: 0 0RF quetiapine 25 mg tablet 25 mg PO DAILY topiramate 25 mg tablet 1 tab PO BEDTIME metformin 500 mg tablet extended release 24 hr 500 mg PO DAILY buprenorphine-naloxone [Suboxone] 12-3 mg film 1.5 strip sublingual DAILY clonidine HCl 0.1 mg tablet 0.1 mg PO TID trazodone 50 mg tablet 1 tab PO BEDTIME omeprazole 40 mg capsule,delayed release(DR/EC) 40 mg PO QAM olanzapine 15 mg tablet 15 mg PO BEDTIME hydrochlorothiazide 25 mg tablet 25 mg PO DAILY albuterol sulfate [ProAir HFA] 90 mcg/actuation HFA aerosol inhaler 2 puff inhalation Q6H PRN (Reason: Wheezing) venlafaxine 150 mg capsule,extended release 24hr 1 cap PO QAM
[2022-03-26 00:41] LABS: Appearance Urine Clear; Color Urine Yellow; Glucose Urine UA >=1000 mg/dL (Negative); Leukocyte Esterase Urine Negative (Negative); Nitrite Urine Negative (Negative); PH 5.5 (5.0-9.0); Specific Gravity - Urine >= 1.030 (1.005-1.025); UMIC TRIGGER UACC YES; Urine Blood Negative (Negative); Urine Ketones Trace mg/dL (Negative); Urine Protein Negative (Neg-Trace)
[2022-03-26 00:44] LABS: Bacteria Urine None Seen (None Seen); Hyaline Casts Urine 0-2 /LPF (0-2); RBC Urine 0-2 /HPF (0-2); Squamous Epithelial Cell Urine 0-2 /HPF (0-2); WBC Urine 0-5 /HPF (0-5)
[2022-03-26 00:51] LABS: Amphetamine Screen Urine Not Detected (Not Detect); Barbiturates, Urine Not Detected (Not Detect); Benzodiazepines Screen Urine Not Detected (Not Detect); Cannabinoid Screen Urine POSITIVE (Not Detect); Cocaine Screen Urine Not Detected (Not Detect); Fentanyl, urine Not Detected (Not Detect); Opiate Screen Urine Not Detected (Not Detect); Phencyclidine Screen Urine Not Detected (Not Detect)
[2022-03-26 00:59] LABS: COVID-19 Test Negative (Negative)
--- NOTE | 2022-03-26 01:11 | PC.NURSE ---
[facility], spoke to Itzel who recommended to continue to monitor patient on tele monitor, draw labs. Administer Mg 2 g for prolonged QTC. Call back to Poison Control Center when results of blood draw are available.
[2022-03-26 01:21] LABS: MANUAL DIFF FLAG NO
[2022-03-26 01:22] LABS: Basophils Percent Auto 0.4 % (0-2); Eosinophils Absolute Auto 0.1 X10*3/uL (0.0-0.4); Eosinophils Percent Auto 0.9 % (0-4); Hematocrit 33.8 % (37.0-47.0); Hemoglobin 10.3 g/dl (12.0-16.0); Imm Gran Abs Auto 0.04 X10*3/uL (0.00-0.03); Imm Gran Pct Auto 0.4 % (0.0-0.4); Lymphocytes Absolute Auto 2.2 X10*3/uL (1.2-4.9); Lymphocytes Percent Auto 20.6 % (20-40); Mean Corpuscular HGB Conc 30.5 g/dl (31.0-35.0); Mean Corpuscular Hemoglobin 22.7 pg (27.0-33.0); Mean Corpuscular Volume 74.4 fL (80.0-98.0); Monocytes Absolute Auto 0.7 X10*3/uL (0.1-1.2); Monocytes Percent Auto 6.9 % (2-11); Neutrophils Absolute Auto 7.7 x10*3/uL (2.0-8.3); Neutrophils Percent Auto 70.8 % (45-73); Platelet Count 224 X10*3/uL (160-400); Red Blood Count 4.54 X10*6/uL (4.20-5.50); Red Cell Distribution Width 16.9 % (11.0-16.0); White Blood Count 10.8 X10*3/uL (4.8-10.8)
[2022-03-26] MEDS: Magnesium Sulfate/H2O 2 GM/50 ML PIGGYBACK IV (01:27)
[2022-03-26 01:39] VITALS: BP 124/81; PULSE 96; RESP 18; TEMP 37.2; O2SAT 96
[2022-03-26 01:40] LABS: Ethanol < 10 mg/dL
[2022-03-26 01:46] LABS: Troponin-I High Sensitivity 19.8 ng/L (<3.5-17.0)
[2022-03-26 01:50] LABS: Acetaminophen LAB < 1 mcg/mL (<30); Alanine Aminotransferase 28 U/L (0-31); Albumin Level 3.8 g/dL (3.5-5.0); Alkaline Phosphatase 69 U/L (39-117); Anion Gap 16 (12-20); Aspartate Amino Transferase 28 U/L (5-31); Bilirubin Total 0.3 mg/dL (0.0-1.0); Blood Urea Nitrogen 10 mg/dL (9-16); Carbon Dioxide 25 mmol/L (22-29); Chloride 97 mmol/L (96-108); Creatinine Clr Calc Pharmacy 74.2; Estimated Glomerular Filt Rate 55; Glucose Random 498 mg/dL (60-115); Magnesium 1.7 mg/dL (1.6-2.6); Potassium 4.1 mmol/L (3.3-5.1); Salicylate < 5.0 mg/dL (15-30); Sodium 134 mmol/L (135-145); Total Protein 7.2 g/dL (6.5-8.0)
--- NOTE | 2022-03-26 01:59 | PC.NURSE ---
This RN called to Poison Control Center, spoke to Itzel. Reported results of VBD-no new orders at this time. Per Itzel, obtain EKG after Magnesium infusion and call her with results.
[2022-03-26] MEDS: 0.9 % Sodium Chloride 1,000 ML 999 ML IV ×3 (02:18→07:43)
--- NOTE | 2022-03-26 02:48 | PC.NURSE ---
This RN spoke to Itzel with Poison Control-reported to her results of EKG obtained at 2:33 am. Per Itzel continue pt observation on tele monitor for approximately 6 hours, repeat EKG at 6:30 am.
[2022-03-26 03:27] LABS: Troponin-I High Sensitivity 34.2 ng/L (<3.5-17.0)
[2022-03-26] MEDS: Nicotine Polacrilex 2 MG GUM BUCCAL ×2 (03:34→18:18)
[2022-03-26] MEDS: hydrOXYzine HCL 25 MG TABLET PO (03:34)
[2022-03-26] MEDS: OLANZapine 10 MG TABLET 15 MG PO (05:32)
[2022-03-26 06:04] VITALS: BP 110/66; PULSE 67; RESP 16; O2SAT 97
--- NOTE | 2022-03-26 06:30 | ECG_ITS ---
Test Reason : overdose Blood Pressure : / mmHG Vent. Rate : 066 BPM Atrial Rate : 066 BPM P-R Int : 224 ms QRS Dur : 086 ms QT Int : 446 ms P-R-T Axes : 041 012 030 degrees QTc Int : 467 ms Sinus rhythm with 1st degree A-V block Otherwise normal ECG When compared with ECG of 26-MAR-2022 02:33, QT has shortened Referred By: Nahomy Barr Electronically Signed By:CIPRIANO BENITES
--- NOTE | 2022-03-26 06:48 | PC.NURSE ---
Telephone call from Itzel with [facility]-reported to her results of EKG performed at 05:18 am and most recent vital signs-no need for continues monitoring-patient cleared by Poison Control.
[2022-03-26 07:07] LABS: Glucose, Whole Blood 406 mg/dL (60-115)
[2022-03-26 07:29] LABS: Troponin-I High Sensitivity 31.1 ng/L (<3.5-17.0)
[2022-03-26 07:31] LABS: Alanine Aminotransferase 23 U/L (0-31); Albumin Level 3.3 g/dL (3.5-5.0); Alkaline Phosphatase 57 U/L (39-117); Anion Gap 13 (12-20); Aspartate Amino Transferase 20 U/L (5-31); Bilirubin Total 0.2 mg/dL (0.0-1.0); Blood Urea Nitrogen 10 mg/dL (9-16); Carbon Dioxide 24 mmol/L (22-29); Chloride 101 mmol/L (96-108); Estimated Glomerular Filt Rate > 60; Glucose Random 477 mg/dL (60-115); Potassium 3.9 mmol/L (3.3-5.1); Sodium 134 mmol/L (135-145); Total Protein 6.1 g/dL (6.5-8.0)
[2022-03-26] MEDS: Insulin Regular, Human 100 UNIT/ML 3 ML VIAL 10 UNIT IVPUSH (07:40)
[2022-03-26 08:53] VITALS: BP 114/77; PULSE 72; RESP 14; TEMP 36.9; O2SAT 94
[2022-03-26 08:53] LABS: Acetone, serum QL Negative (Negative)
[2022-03-26 09:16] LABS: Glucose, Whole Blood 151 mg/dL (60-115)
--- NOTE | 2022-03-26 10:37 | MHC.CARE ---
CARE Team evaluated patient, she will require inpatient psychiatric treatment. Likely will be admitted to a unit here at [facility] later today, written assessment to follow. Patient is aware and in agreement with the plan, ED providers updated.
--- NOTE | 2022-03-26 10:54 | PC.NURSE ---
PT MOVED TO POD 2. SHE IS COOPERATIVE ON ARRIVAL, SHE ENGAGES WITH STAFF APPROPRIATELY. PT IS A IP BED SEARCH
--- NOTE | 2022-03-26 16:13 | PHA.MEDREC ---
Pharmacy Consult ? Medication Reconciliation Pharmacy has completed the medication reconciliation.Spoke with patient in the ,
[2022-03-26] MEDS: Topiramate 25 MG TABLET 50 MG PO (21:43)
[2022-03-26] MEDS: traZODone HCL 50 MG TABLET PO (21:44)
[2022-03-26] MEDS: Buprenorphine/Naloxone 8/2 mg FILM 2 FILM SUBLINGUAL (21:45)
[2022-03-26] MEDS: Buprenorphine/Naloxone 2/0.5mg FILM 1 FILM SUBLINGUAL (21:45)
--- NOTE | 2022-03-26 22:06 | PC.NURSE ---
Pt was admitted to from [facility] ED at 2034. Signed CV, signed 3-day notice. Pt?s intake reports SI w/o specific plan after intentional OD on clonidine. During assessment, pt denies SI/HI/AH/VH/safety concerns and states she has good family support, which contradicts intake written docs. UTOX: Positive THC. Pt denies all substance use during assessment, except prescribed suboxone. Mood: Depressed; affect irritable. Makes eye contact. Laughed when asked about recent SA, saying, ?It was stupid,? and denies all ideation or intent. ? Substance use: Denies all except suboxone, tobacco, caffeine; however, UTOX +THC.? MedHx: Smoker, wears glasses (on person), reports GI upset r-t not having suboxone today. Received tonight. PsycheHx: Bipolar, depressed severe. OD on clonidine prior to admission. Takes suboxone 18mg daily. VS at admission: 97.4, 75, 16, 181/83, 98%. ??During assessment pt is A&O, INAD, cooperative, engaged, makes eye contact, irritable d-t not taking suboxone. Reports feeling safe and denies SI/HI/AH/VH. Medication adherent.
[2022-03-26] MEDS: carBAMazepine 200 MG TABLET PO (22:24)
[2022-03-26 22:25] VITALS: BP 171/83
[2022-03-26] MEDS: cloNIDine HCL 0.1 MG TABLET PO (23:30)
[2022-03-26] MEDS: hydroCHLOROthiazide 25 MG TABLET PO (23:37)
[2022-03-27 09:20] LABS: Estimated Average Glucose 272 mg/dL; Hemoglobin A1c % 11.1 %
[2022-03-27 09:22] LABS: Cholesterol 128 mg/dL; HDL Cholesterol 44 mg/dL; LDL Cholesterol Calculated 71 mg/dl; Magnesium 1.6 mg/dL (1.6-2.6); Triglycerides 69 mg/dL
[2022-03-27 09:40] VITALS: BP 144/94; PULSE 72; RESP 17; TEMP 36.3; O2SAT 98
[2022-03-27 09:43] LABS: Free T4 (Free Thyroxine) 0.85 ng/dL (0.71-1.85); Thyroid Stimulating Hormone 1.57 uIU/mL (0.32-4.0)
[2022-03-27] MEDS: Topiramate 25 MG TABLET 50 MG PO ×2 (09:52→21:09)
[2022-03-27] MEDS: hydroCHLOROthiazide 25 MG TABLET PO (09:53)
[2022-03-27] MEDS: Omeprazole 40 MG CAPSULE.DR PO (09:53)
[2022-03-27] MEDS: Venlafaxine HCl ER 150 MG CAP.ER.24H PO (09:53)
[2022-03-27] MEDS: Buprenorphine/Naloxone 8/2 mg FILM 2 FILM SUBLINGUAL (09:54)
[2022-03-27] MEDS: Buprenorphine/Naloxone 2/0.5mg FILM 1 FILM SUBLINGUAL (09:54)
[2022-03-27 10:08] LABS: Folate 19.2 ng/mL (> or = 4.0); Vitamin B12 432 pg/mL (200-900)
[2022-03-27] MEDS: metFORMIN HCl ER 500 MG TAB.ER.24H PO (17:06)
[2022-03-27 18:00] VITALS: BP 141/85; PULSE 67; RESP 16; TEMP 36.6; O2SAT 98
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
[2022-03-27] MEDS: Nicotine Polacrilex Lozenge 4 MG LOZENGE BUCCAL ×2 (21:07→23:19)
[2022-03-27] MEDS: traZODone HCL 50 MG TABLET PO (21:07)
[2022-03-27] MEDS: carBAMazepine 200 MG TABLET PO (21:10)
[2022-03-28] MEDS: Magnesium Hydrox/Alum Hydrox 30 ML ORAL.SUSP PO (00:53)
[2022-03-28] MEDS: Nicotine Polacrilex Lozenge 4 MG LOZENGE BUCCAL ×5 (01:35→20:33)
[2022-03-28] MEDS: Melatonin 3 MG TABLET 6 MG PO (01:46)
[2022-03-28] MEDS: traZODone HCL 50 MG TABLET PO ×2 (01:46→20:33)
[2022-03-28] MEDS: Omeprazole 40 MG CAPSULE.DR PO (05:46)
[2022-03-28] MEDS: Topiramate 25 MG TABLET 50 MG PO ×2 (08:36→20:33)
[2022-03-28] MEDS: Venlafaxine HCl ER 150 MG CAP.ER.24H PO (08:36)
[2022-03-28] MEDS: Buprenorphine/Naloxone 8/2 mg FILM 2 FILM SUBLINGUAL (08:37)
[2022-03-28] MEDS: Buprenorphine/Naloxone 2/0.5mg FILM 1 FILM SUBLINGUAL (08:37)
[2022-03-28] MEDS: hydroCHLOROthiazide 25 MG TABLET PO (08:58)
[2022-03-28 09:24] VITALS: BP 165/99; PULSE 79; RESP 16; TEMP 36.6; O2SAT 97
[2022-03-28 11:01] LABS: Carbamazepine Tegretol 4.4 mcg/mL (5.0-12.0)
--- NOTE | 2022-03-28 15:07 | P.PNPSI_ITS ---
Subjective Subjective Date of Service: 03/28/22 Reason For Visit: depression, si, overdose Interim History: calm, cooperative. reports she is feeling great, denies Sx. planning to discharge tomorrow, as her 3-day notice matures. she states she took a little extra medication out of anger, that is all. per staff, isolative, sleeping. declined 1:1 contact. isolative on eves. guarded. denied Sx. looks depressed. more visible eves. trazodone 50, melatonin last night at 0146. Mental Status Exam Mental Status Exam Narrative: A&O. In hospital attire, glasses, overweight. Moderate eye contact, attentive. No Tics or Tremors. No abnormal involuntary movements. Calm, guarded. Non- pressured speech, non-spontaneous, slowed rate, normal volume and prosody. Mood is ?great,? affect is constricted. Denies SI/SIBI. Currently denies HI upon inquiry. Denies A/VH or delusional thought content. Thoughts are concrete. No known cognitive or memory impairment. Insight/ Judgment limited but adequate. Diagnostics Vital Signs (24Hr): Vital Signs - 24 hr 03/27/22 18:00 03/28/22 09:24 Temperature 97.9 F 97.9 F Pulse Rate 67 79 Respiratory Rate 16 16 Blood Pressure 141/85 H 165/99 H Pulse Oximetry 98 97 Oxygen Delivery Method Room Air Room Air BMI result Body Mass Index 36.9 Labs Results: 03/26/22 01:16 03/26/22 06:58 Labs: Laboratory Results - last 48 hr 03/27/22 03/27/22 03/27/22 08:43 08:43 08:44 Estimat Average Glucose 272 Hemoglobin A1c % 11.1 Magnesium 1.6 Triglycerides 69 Cholesterol 128 LDL Cholesterol, Calc 71 HDL Cholesterol 44 D Vitamin B12 432 Folate 19.2 TSH 1.57 Free T4 0.85 Carbamazepine 03/28/22 08:57 Estimat Average Glucose Hemoglobin A1c % Magnesium Triglycerides Cholesterol LDL Cholesterol, Calc HDL Cholesterol Vitamin B12 Folate TSH Free T4 Carbamazepine 4.4 L Medications Medications Current Medications Acetaminophen (Acetaminophen 325 Mg Tablet) 650 mg PO Q6H PRN PRN Reason: Headache/Pain Mild Scale (1-3) Al Hydroxide/Mg Hydroxide (Magnesium Hydrox/Alum Hydrox 30 Ml Oral.Susp) 30 ml PO Q6H PRN PRN Reason: Heartburn/Nausea Last Admin: 03/28/22 00:53 Dose: 30 ml Albuterol Sulfate (Albuterol Sulfate 90 Mcg 8 Gm Inhaler) 2 puff INHALE Q6H PRN PRN Reason: Wheezing Buprenorphine/Naloxone (Buprenorphine/Naloxone 2/0.5mg Film) 1 film SUBLINGUAL DAILY [facility], [facility] Last Admin: 03/28/22 08:37 Dose: 1 film Buprenorphine/Naloxone (Buprenorphine/Naloxone 8/2 Mg Film) 2 film SUBLINGUAL DAILY [facility], 1928–1983 Last Admin: 03/28/22 08:37 Dose: 2 film Carbamazepine (Carbamazepine 200 Mg Tablet) 200 mg PO BEDTIME [facility], [facility] Last Admin: 03/27/22 21:10 Dose: 200 mg Chlorpromazine HCl (Chlorpromazine Hcl 100 Mg Tablet) 100 mg PO BEDTIME PRN PRN Reason: Anxiety Clonidine HCl (Clonidine Hcl 0.1 Mg Tablet) 0.1 mg PO TID PRN; Protocol PRN Reason: Anxiety Last Admin: 03/26/22 23:30 Dose: 0.1 mg Hydrochlorothiazide (Hydrochlorothiazide 25 Mg Tablet) 25 mg PO DAILY [facility], [facility]; Protocol Last Admin: 03/28/22 08:58 Dose: 25 mg Hydroxyzine HCl (Hydroxyzine Hcl 25 Mg Tablet) 25 mg PO Q6H PRN PRN Reason: Anxiety Magnesium Hydroxide (Milk Of Magnesia 30 Ml Oral.Susp) 30 ml PO DAILY PRN PRN Reason: Constipation Melatonin (Melatonin 3 Mg Tablet) 6 mg PO BEDTIME PRN PRN Reason: Sleep Last Admin: 03/28/22 01:46 Dose: 6 mg Metformin HCl (Metformin Hcl Er 500 Mg Tab.Er.24h) 500 mg PO DAILY@1700 [facility] Last Admin: 03/27/22 17:06 Dose: 500 mg Nicotine Polacrilex (Nicotine Polacrilex Lozenge 4 Mg Lozenge) 4 mg BUCCAL Q2H PRN PRN Reason: Nicotine Cravings Last Admin: 03/28/22 12:15 Dose: 4 mg Olanzapine (Olanzapine 2.5 Mg Tablet) 2.5 mg PO BID PRN PRN Reason: Agitation Omeprazole (Omeprazole 40 Mg Capsule.Dr) 40 mg PO DAILY@0630 [facility] Last Admin: 03/28/22 05:46 Dose: 40 mg Pharmacy Consult (Consult Rx Perform Med Rec) 1 each MISCELLANE ONCE PRN PRN Reason: Consult order Topiramate (Topiramate 25 Mg Tablet) 50 mg PO BID [facility] Last Admin: 03/28/22 08:36 Dose: 50 mg Topiramate (Topiramate 25 Mg Tablet) 25 mg PO BID PRN PRN Reason: Anxiety Trazodone HCl (Trazodone Hcl 50 Mg Tablet) 50 mg PO BEDTIME PRN PRN Reason: Insomnia Last Admin: 03/28/22 01:46 Dose: 50 mg Trazodone HCl (Trazodone Hcl 50 Mg Tablet) 50 mg PO BEDTIME [facility] Last Admin: 03/27/22 21:07 Dose: 50 mg Venlafaxine HCl (Venlafaxine Hcl Er 150 Mg Cap.Er.24h) 150 mg PO DAILY [facility] Last Admin: 03/28/22 08:36 Dose: 150 mg Allergies Allergies Allergy/AdvReac Type Severity Reaction Status Date / Time No Known Allergies Allergy Verified 02/01/21 19:54 Assessment & Plan Assessment & Plan (1) Borderline personality disorder: Status: Acute Code(s): F60.3 - Borderline personality disorder (2) Post traumatic stress disorder (PTSD): Status: Acute Code(s): F43.10 - Post-traumatic stress disorder, unspecified (3) Bipolar 1 disorder: Status: Acute Code(s): F31.9 - Bipolar disorder, unspecified Plan Alana is a 41-year-old female with a past medical history of PTSD, bipolar I disorder and BPD. She is presenting s/p suicidal gesture via overdose on 8 of her clonidine 0.1 mg pills, identifying precipitating factor as her ACCS team urged her to file a 51a on her . She is currently reporting benefit on her med regimen, does not want changes. Signed TDN, minimizing her sx, denies SI, denies AH. Utox positive for cannabis only. Plan: Continue assessment and engagement, obtain tegretol level Monitor response to medications. Monitor for safety in the milieu. Discharge on stabilization. Patient seen. Chart reviewed. Discussed with team. Obtain collateral contact info as needed 03/28: stable, denying Sx. three day notice matures tomorrow, planning for discharge at 11. I spent ___20___ minutes with the patient and/or on the patient floor today, greater than?50% of which was spent counseling/coordinating care. Reason for contiued inpatient stay Substantial Risk for: inability to function and rapid decompensation
[2022-03-28] MEDS: metFORMIN HCl ER 500 MG TAB.ER.24H PO (16:36)
[2022-03-28 20:32] VITALS: BP 182/90; PULSE 75; RESP 18; TEMP 36.6; O2SAT 98
[2022-03-28] MEDS: carBAMazepine 200 MG TABLET PO (20:33)
[2022-03-28] MEDS: cloNIDine HCL 0.1 MG TABLET PO (20:33)
[2022-03-29] MEDS: cloNIDine HCL 0.1 MG TABLET PO ×2 (03:11→09:02)
[2022-03-29 07:00] VITALS: BMI 36.1
[2022-03-29 08:25] VITALS: BP 142/98; PULSE 70; TEMP 36.6; O2SAT 99
[2022-03-29] MEDS: Topiramate 25 MG TABLET 50 MG PO (08:58)
[2022-03-29] MEDS: hydroCHLOROthiazide 25 MG TABLET PO (08:58)
[2022-03-29] MEDS: Venlafaxine HCl ER 150 MG CAP.ER.24H PO (08:59)
[2022-03-29] MEDS: Omeprazole 40 MG CAPSULE.DR PO (09:00)
[2022-03-29] MEDS: Buprenorphine/Naloxone 8/2 mg FILM 2 FILM SUBLINGUAL (09:03)
[2022-03-29] MEDS: Buprenorphine/Naloxone 2/0.5mg FILM 1 FILM SUBLINGUAL (09:04)
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
--- NOTE | 2022-03-29 11:41 | PC.NURSE ---
Pt denies ideation plan or intent, to harm self or others . discharged home to family,verbalized understanding of discharge plan and meds and need to make follow up appointments.
== END 2022-03-29 11:30 | disposition home health service (06) | DRG 753 ==
LOC: HO.ED 03-26 10:54 → HO.PADLT16 03-26 20:08
PROVIDERS: Registered Nurse; Student in an Organized Health Care Education/Training Program; Admitting Provider Psychiatry & Neurology Psychiatry; Emergency Provider Emergency Medicine; PCP Nurse Practitioner Adult Health; Visit Provider Psychiatry & Neurology Psychiatry
DX: F31.9 Bipolar disorder, unspecified (principal); E11.65 Type 2 diabetes mellitus with hyperglycemia; F17.210 Nicotine dependence, cigarettes, uncomplicated; T46.5X2A Poisoning by other antihypertensive drugs, intentional self-harm, initial encounter; F43.10 Post-traumatic stress disorder, unspecified; F60.3 Borderline personality disorder; Z20.822 Contact with and (suspected) exposure to COVID-19; Z71.6 Tobacco abuse counseling; Z79.84 Long term (current) use of oral hypoglycemic drugs; Z79.899 Other long term (current) drug therapy
CPT/HCPCS: 36415; 80053; 80061; 80143; 80156; 80179; 80307; 81001; 82009; 82077; 82607; 82746; 82947; 83036; 83735; 84439; 84443; 84484; 85025; 85610; 87635; 90792; 93005; 99285; J3475

== ENCOUNTER 2022-04-07 19:48 | Emergency (ER) | payer MEDICAID, SELFPAY ==
[2022-04-07 19:52] VITALS: BP 142/95; PULSE 117; RESP 20; TEMP 36.8; O2SAT 99; BMI 37.3
[2022-04-07 20:22] LABS: Basophils Percent Auto 0.5 % (0-2); Eosinophils Absolute Auto 0.2 X10*3/uL (0.0-0.4); Eosinophils Percent Auto 1.9 % (0-4); Hematocrit 33.4 % (37.0-47.0); Hemoglobin 10.6 g/dl (12.0-16.0); Imm Gran Abs Auto 0.02 X10*3/uL (0.00-0.03); Imm Gran Pct Auto 0.3 % (0.0-0.4); Lymphocytes Percent Auto 38.8 % (20-40); MANUAL DIFF FLAG NO; Mean Corpuscular HGB Conc 31.7 g/dl (31.0-35.0); Mean Corpuscular Hemoglobin 23.2 pg (27.0-33.0); Mean Corpuscular Volume 73.1 fL (80.0-98.0); Mean Platelet Volume 9.1 fL (9.4-12.3); Monocytes Absolute Auto 0.4 X10*3/uL (0.1-1.2); Monocytes Percent Auto 5.7 % (2-11); Neutrophils Absolute Auto 4.1 x10*3/uL (2.0-8.3); Neutrophils Percent Auto 52.8 % (45-73); Platelet Count 241 X10*3/uL (160-400); Red Blood Count 4.57 X10*6/uL (4.20-5.50); Red Cell Distribution Width 16.5 % (11.0-16.0); White Blood Count 7.8 X10*3/uL (4.8-10.8)
[2022-04-07 20:40] LABS: Alanine Aminotransferase 29 U/L (0-31); Albumin Level 3.9 g/dL (3.5-5.0); Alkaline Phosphatase 67 U/L (39-117); Anion Gap 18 (12-20); Aspartate Amino Transferase 30 U/L (5-31); Bilirubin Total 0.2 mg/dL (0.0-1.0); Blood Urea Nitrogen 11 mg/dL (9-16); Calcium 9.1 mg/dL (8.4-10.2); Carbon Dioxide 21 mmol/L (22-29); Chloride 104 mmol/L (96-108); Creatinine Clr Calc Pharmacy 87.6; Estimated Glomerular Filt Rate > 60; Glucose Random 343 mg/dL (60-115); Potassium 3.5 mmol/L (3.3-5.1); Sodium 139 mmol/L (135-145); Total Protein 7.5 g/dL (6.5-8.0)
--- NOTE | 2022-04-07 20:51 | ED_ITS ---
HPI - General Adult General Chief complaint: Recheck/Abnormal Lab/Rx Stated complaint: high blood sugar Time Seen by Provider: 04/07/22 20:51 Source: patient Mode of arrival: ambulatory Limitations: no limitations History of Present Illness HPI narrative: Patient diabetic for last 10 years was taking insulin had a gastric sleeve surgery 8 years ago blood sugar improved weight loss and patient stopped taking insulin for last 1 year patient noted blood sugar high started taking metformin for last few days blood sugar is elevated last 467 patient feeling dizzy urinating a lot HB A1c 11.1 on 03/27/2022. No vision changes no chest pain patient has gained weight after surgery Related Data Home Medications Medication Instructions Recorded Confirmed albuterol sulfate 90 mcg/actuation 2 puff inhalation Q6H PRN Wheezing 01/27/22 03/26/22 aerosol inhaler (ProAir HFA) buprenorphine 12 mg-naloxone 3 mg 1.5 strip sublingual DAILY 01/27/22 03/26/22 sublingual film (Suboxone) clonidine HCl 0.1 mg tablet 0.1 mg PO TID PRN Anxiety 01/27/22 03/26/22 hydrochlorothiazide 25 mg tablet 25 mg PO DAILY 01/27/22 03/26/22 metformin 500 mg tablet,extended 500 mg PO DAILY@1700 01/27/22 03/26/22 release 24 hr omeprazole 40 mg capsule,delayed 40 mg PO DAILY@0630 01/27/22 03/26/22 release topiramate 25 mg tablet 1 tab PO BID PRN Anxiety 01/27/22 03/26/22 trazodone 50 mg tablet 25 - 50 mg PO BEDTIME 01/27/22 03/26/22 venlafaxine 150 mg 1 cap PO DAILY 01/27/22 03/26/22 capsule,extended release 24 hr carbamazepine 200 mg tablet 1 tab PO BEDTIME 03/26/22 03/26/22 chlorpromazine 100 mg tablet 1 tab PO BEDTIME PRN Anxiety 03/26/22 03/26/22 melatonin 3 mg tablet 1 - 2 tab PO BEDTIME PRN Sleep 03/26/22 03/26/22 nicotine (polacrilex) 4 mg buccal 4 mg PO Q2H PRN Nicotine Cravings 03/26/22 03/26/22 lozenge olanzapine 2.5 mg tablet 1 tab PO BID PRN Agitation 03/26/22 03/26/22 topiramate 50 mg tablet (Topamax) 1 tab PO BID 03/26/22 03/26/22 Previous Rx's Medication Instructions Recorded alcohol swabs (Alcohol Pads) 1 pad topical .T.i.d. PRN Blood 04/07/22 sugar check #200 ea insulin glargine 100 unit/mL (3 20 unit (0.2 mL) subcut QPM #15 mL 04/07/22 mL) subcutaneous pen (Lantus Solostar U-100 Insulin) insulin lispro 100 unit/mL 1 sliding scale dose subcut 04/07/22 subcutaneous half-unit pen USEASDIRECTD #15 mL (Humalog Jean KwikPen (U-100)) lancets (Lancets,Ultra Thin) #100 ea 04/07/22 Allergies Allergy/AdvReac Type Severity Reaction Status Date / Time No Known Allergies Allergy Verified 02/01/21 19:54 Review of Systems Review of Systems: Yes all other systems are reviewed and are negative [facility] Past Medical History Medical History (Updated 04/07/22 @ 21:19 by Jeremias Brand MD) Anxiety Bipolar 1 disorder Borderline personality disorder Depression Diabetes mellitus PTSD (post-traumatic stress disorder) Suicide attempt Social History Social History Household Members: Spouse Housing: Apartment Do you presently have visiting nurse or other home services: No Patient Tobacco Use Status: Current everyday Tobacco user Tobacco use type: Cigarette Cigarette Packs Per Day: 0.5 Cigarettes Per Day: 10.0 Years Smoked: 20 e-Cigarette/Vaping Use: Currently Using Second Hand Smoke Exposure: Yes Substance Use Type: Caffiene Advance Directives: No Advance Directives Date on File: 03/28/22 service: No Sexual orientation: Straight/Heterosexual Physical Exam ED Vital Signs: Vital Signs - 24 hr 04/07/22 19:52 04/07/22 21:04 Temperature 98.2 F 98.6 F Pulse Rate 117 H 98 Respiratory Rate 20 18 Blood Pressure 142/95 H 140/87 H Pulse Oximetry 99 99 Oxygen Delivery Method Room Air Room Air BMI result Body Mass Index 37.3 Appearance: Alert. Oriented X3. No acute distress. Eyes: PERRLA, No Nystagmus ENT: Pharynx normal. Oral Mucosa moist Neck: Normal inspection. Neck supple. CVS: Normal heart rate and rhythm. Pulses normal. Respiratory: No respiratory distress. Equal air entry bilateral, no wheezing/rales/rhonchi Abdomen: Soft and nontender. Bowel sounds are present, no mass palpable, no CVA tenderness Skin: Skin warm and dry. Normal skin color. Normal skin turgor. Extremities: No lower extremity edema. No calf tenderness Neuro: Oriented X 3. No motor deficit. No sensory deficit.No cerebellar signs , cranial nerves II-XII intact Medical Decision Making MDM Narrative Medical decision making narrative: Patient diabetic with transient improvement in blood sugar after gastric sleeve surgery blood sugar increasing again poor response to metformin will start patient on Lantus and Humalog before meals last HbA1c was 11.1 Lab Data Lab results reviewed: Yes I reviewed the patient's lab results. Result diagrams: 04/07/22 20:13 04/07/22 20:13 Labs: Lab Results 04/07/22 04/07/22 Range/Units 20:13 20:13 WBC 7.8 (4.8-10.8) X10*3/uL RBC 4.57 (4.20-5.50) X10*6/uL Hgb 10.6 L (12.0-16.0) g/dl Hct 33.4 L (37.0-47.0) % MCV 73.1 L (80.0-98.0) fL MCH 23.2 L (27.0-33.0) pg MCHC 31.7 (31.0-35.0) g/dl RDW 16.5 H (11.0-16.0) % Plt Count 241 (160-400) X10*3/uL MPV 9.1 L (9.4-12.3) fL Immature Gran % (Auto) 0.3 (0.0-0.4) % Neut % (Auto) 52.8 (45-73) % Lymph % (Auto) 38.8 (20-40) % [place] % (Auto) 5.7 (2-11) % Eos % (Auto) 1.9 (0-4) % Baso % (Auto) 0.5 (0-2) % Lymph # (Auto) 3.0 (1.2-4.9) X10*3/uL [place] # (Auto) 0.4 (0.1-1.2) X10*3/uL Eos # (Auto) 0.2 (0.0-0.4) X10*3/uL Baso # (Auto) 0.0 (0.0-0.2) X10*3/uL Abs Immat Gran (auto) 0.02 (0.00-0.03) X10*3/uL Absolute Neuts (auto) 4.1 (2.0-8.3) x10*3/uL Absolute Nucleated RBC 0.000 (0.0-0.012) X10*3/uL Nucleated RBC % (auto) 0.0 (0.0-0.2) /100WBC Sodium 139 (135-145) mmol/L Potassium 3.5 (3.3-5.1) mmol/L Chloride 104 (96-108) mmol/L Carbon Dioxide 21 L (22-29) mmol/L Anion Gap 18 (12-20) BUN 11 (9-16) mg/dL Creatinine 0.93 (0.5-1.4) mg/dL Estim Creat Clear Calc 87.6 Estimated GFR > 60 Random Glucose 343 H (60-115) mg/dL Calcium 9.1 D (8.4-10.2) mg/dL Total Bilirubin 0.2 (0.0-1.0) mg/dL AST 30 D (5-31) U/L ALT 29 (0-31) U/L Alkaline Phosphatase 67 (39-117) U/L Total Protein 7.5 D (6.5-8.0) g/dL Albumin 3.9 (3.5-5.0) g/dL Discharge Plan Discharge Clinical Impression: Diabetes mellitus with hyperglycemia Patient Disposition: Home, Self-Care Instructions: Diabetic Hyperglycemia (ED) Additional Instructions: Drink plenty of fluids Start taking Lantus insulin 20 units in the nighttime And Humalog according to sliding scale before meals as follow: 0-150: 0 unit 151-200 : 4 units 201-250 : 6 units 251- 300 : 8 units 301-350: 10 units above 351 : 12 units and call your PCP or come to the ER Prescriptions: New insulin glargine [Lantus Solostar U-100 Insulin] 100 unit/mL (3 mL) insulin pen 20 unit subcut QPM Qty: 15 2RF insulin lispro [Humalog Jean MaribelPen U-100] 100 unit/mL insulin pen, half- unit 1 sliding scale dose subcut USEASDIRECTD Qty: 15 2RF (DME) lancets [Lancets,Ultra Thin] Misc See Rx Instructions .Route Qty: 100 0RF Rx Instructions: As directed alcohol swabs [Alcohol Pads] Pads, Medicated 1 pad topical .T.i.d. PRN (Reason: Blood sugar check) Qty: 200 0RF No Action topiramate 25 mg tablet 1 tab PO BID PRN (Reason: Anxiety) metformin 500 mg tablet extended release 24 hr 500 mg PO DAILY@1700 buprenorphine-naloxone [Suboxone] 12-3 mg film 1.5 strip sublingual DAILY clonidine HCl 0.1 mg tablet 0.1 mg PO TID PRN (Reason: Anxiety) trazodone 50 mg tablet 25 - 50 mg PO BEDTIME omeprazole 40 mg capsule,delayed release(DR/EC) 40 mg PO DAILY@0630 hydrochlorothiazide 25 mg tablet 25 mg PO DAILY albuterol sulfate [ProAir HFA] 90 mcg/actuation HFA aerosol inhaler 2 puff inhalation Q6H PRN (Reason: Wheezing) venlafaxine 150 mg capsule,extended release 24hr 1 cap PO DAILY chlorpromazine 100 mg tablet 1 tab PO BEDTIME PRN (Reason: Anxiety) carbamazepine 200 mg tablet 1 tab PO BEDTIME nicotine (polacrilex) 4 mg lozenge 4 mg PO Q2H PRN (Reason: Nicotine Cravings) melatonin 3 mg tablet 1 - 2 tab PO BEDTIME PRN (Reason: Sleep) olanzapine 2.5 mg tablet 1 tab PO BID PRN (Reason: Agitation) topiramate [Topamax] 50 mg tablet 1 tab PO BID Interventions: ED Discharge Assessment Last Done: 04/07/22 21:37 Discharge Date/Time: 04/07/22 21:39
[2022-04-07 21:04] VITALS: BP 140/87; PULSE 98; RESP 18; TEMP 37; O2SAT 99
[2022-04-07] MEDS: Insulin Lispro 100 UNIT/ML 3 ML VIAL 8 UNIT SUBCUT (21:12)
[2022-04-07] MEDS: Insulin Glargine,Hum.rec.anlog 100 UNIT/ML 10 ML VIAL 20 UNIT SUBCUT (21:13)
== END 2022-04-07 21:39 | disposition home or self-care (01) ==
PROVIDERS: Emergency Provider Internal Medicine; PCP Family Medicine
DX: E11.65 Type 2 diabetes mellitus with hyperglycemia (principal); F11.20 Opioid dependence, uncomplicated; F17.210 Nicotine dependence, cigarettes, uncomplicated; Z98.84 Bariatric surgery status; Z71.6 Tobacco abuse counseling; Z79.84 Long term (current) use of oral hypoglycemic drugs
CPT/HCPCS: 36415; 80053; 85025; 99283; 99284

== ENCOUNTER 2024-09-13 22:24 | Emergency (ER) | payer MEDICAID, SELFPAY ==
[2024-09-13 22:35] VITALS: BP 160/85; PULSE 81; RESP 18; TEMP 36.8; O2SAT 98; BMI 38.9
[2024-09-13 23:18] LABS: MANUAL DIFF FLAG NO
[2024-09-13 23:19] LABS: Basophils Percent Auto 0.5 % (0-2); Eosinophils Absolute Auto 0.1 X10*3/uL (0.0-0.4); Eosinophils Percent Auto 1.4 % (0-4); Hematocrit 38.4 % (37.0-47.0); Hemoglobin 13.7 g/dl (12.0-16.0); Imm Gran Abs Auto 0.03 X10*3/uL (0.00-0.03); Imm Gran Pct Auto 0.4 % (0.0-0.4); Lymphocytes Absolute Auto 2.2 X10*3/uL (1.2-4.9); Lymphocytes Percent Auto 26.7 % (20-40); Mean Corpuscular HGB Conc 35.7 g/dl (31.0-35.0); Mean Corpuscular Hemoglobin 30.8 pg (27.0-33.0); Mean Corpuscular Volume 86.3 fL (80.0-98.0); Mean Platelet Volume 9.2 fL (9.4-12.3); Monocytes Absolute Auto 0.5 X10*3/uL (0.1-1.2); Neutrophils Absolute Auto 5.4 x10*3/uL (2.0-8.3); Platelet Count 224 X10*3/uL (160-400); Red Blood Count 4.45 X10*6/uL (4.20-5.50); Red Cell Distribution Width 11.8 % (11.0-16.0); White Blood Count 8.3 X10*3/uL (4.8-10.8)
[2024-09-13 23:22] LABS: Appearance Urine Clear; Color Urine Yellow; Glucose Urine UA Negative (Negative); Leukocyte Esterase Urine Negative (Negative); Nitrite Urine Negative (Negative); Urine Blood Negative (Negative); Urine Ketones Negative (Negative); Urine Protein Negative (Neg-Trace)
[2024-09-13 23:23] LABS: UPreg QC Valid YES; Urine Pregnancy NEGATIVE (NEGATIVE)
--- NOTE | 2024-09-13 23:29 | ED_ITS ---
HPI - Psych General Chief Complaint: Psychiatric Symptoms Stated Complaint: crisis (SH) Time Seen by Provider: 09/13/24 22:40 Source: patient Mode of arrival: ambulatory Limitations: no limitations History of Present Illness ED Provider: HPI Narrative: Patient's history of bipolar disorder and borderline personality disorder feels increasingly depressed without any significant reason will like to jump off her porch called her therapist who has a to come to the hospital patient is fairly compliant to her medication denies any triggers just feel depressed Related Data Home Medications ?Medication ?Instructions ?Recorded ?Confirmed albuterol sulfate 90 mcg/actuation 2 puff inhalation Q6H PRN Wheezing 01/27/22 03/26/22 aerosol inhaler (ProAir HFA) buprenorphine 12 mg-naloxone 3 mg 1.5 strip sublingual DAILY 01/27/22 03/26/22 sublingual film (Suboxone) clonidine HCl 0.1 mg tablet 0.1 mg PO TID PRN Anxiety 01/27/22 03/26/22 hydrochlorothiazide 25 mg tablet 25 mg PO DAILY 01/27/22 03/26/22 metformin 500 mg tablet,extended 500 mg PO DAILY@1700 01/27/22 03/26/22 release 24 hr omeprazole 40 mg capsule,delayed 40 mg PO DAILY@0630 01/27/22 03/26/22 release topiramate 25 mg tablet 1 tab PO BID PRN Anxiety 01/27/22 03/26/22 trazodone 50 mg tablet 25 - 50 mg PO BEDTIME 01/27/22 03/26/22 venlafaxine 150 mg 1 cap PO DAILY 01/27/22 03/26/22 capsule,extended release 24 hr carbamazepine 200 mg tablet 1 tab PO BEDTIME 03/26/22 03/26/22 chlorpromazine 100 mg tablet 1 tab PO BEDTIME PRN Anxiety 03/26/22 03/26/22 melatonin 3 mg tablet 1 - 2 tab PO BEDTIME PRN Sleep 03/26/22 03/26/22 nicotine (polacrilex) 4 mg buccal 4 mg PO Q2H PRN Nicotine Cravings 03/26/22 03/26/22 lozenge olanzapine 2.5 mg tablet 1 tab PO BID PRN Agitation 03/26/22 03/26/22 topiramate 50 mg tablet (Topamax) 1 tab PO BID 03/26/22 03/26/22 Previous Rx's ?Medication ?Instructions ?Recorded alcohol swabs (Alcohol Pads) 1 pad topical .T.i.d. PRN Blood 04/07/22 sugar check #200 ea insulin glargine 100 unit/mL (3 20 unit (0.2 mL) subcut QPM #15 mL 04/07/22 mL) subcutaneous pen (Lantus Solostar U-100 Insulin) insulin lispro 100 unit/mL 1 sliding scale dose subcut 04/07/22 subcutaneous half-unit pen USEASDIRECTD #15 mL (Humalog Jean KwikPen (U-100)) lancets (Lancets,Ultra Thin) #100 ea 04/07/22 Allergies Allergy/AdvReac Type Severity Reaction Status Date / Time No Known Allergies Allergy Verified 09/13/24 22:38 Review of Systems 2 Review of Systems: Yes all other systems are reviewed and are negative [facility] Past Medical History Medical History Diabetes mellitus PTSD (post-traumatic stress disorder) Borderline personality disorder Bipolar 1 disorder Suicide attempt Depression Anxiety Social History Social History Household Members: Spouse Housing: Apartment Do you presently have visiting nurse or other home services: No Patient Tobacco Use Status: Current everyday Tobacco user Tobacco use type: Cigarette Cigarette Packs Per Day: 0.5 Cigarettes Per Day: 10.0 Years Smoked: 20 Smoked in Last 30 Days: No e-Cigarette/Vaping Use: Currently Using Second Hand Smoke Exposure: Yes Use of substances other than those prescribed or required for medical reasons: No Substance Use Type: Caffiene Advance Directives: No Advance Directives Information Provided: No Advance Directives Date on File: 03/28/22 Patient : No service: No Sexual orientation: Straight/Heterosexual Physical Exam 2 Vital Signs: Vital Signs: Last Vital Signs Temp 97.7 F 09/14/24 06:14 Pulse 61 09/14/24 06:14 Resp 16 09/14/24 06:14 BP 151/58 H 09/14/24 06:14 Pulse Ox 98 09/14/24 06:14 O2 Del Method Room Air 09/14/24 06:14 BMI result Body Mass Index 38.9 Appearance: Alert. Oriented X3. No acute distress. Eyes: PERRLA, No Nystagmus ENT: Pharynx normal. Oral Mucosa moist Neck: Normal inspection. Neck supple. CVS: Normal heart rate and rhythm. Pulses normal. Respiratory: No respiratory distress. Equal air entry bilateral, no wheezing/rales/rhonchi Abdomen: Soft and nontender. Bowel sounds are present, no mass palpable, no CVA tenderness Skin: Skin warm and dry. Normal skin color. Normal skin turgor. Extremities: No lower extremity edema. No calf tenderness psych: Feel depressed still feels suicidal no active plan at this time no delusions or hallucination Neuro: Oriented X 3. No motor deficit. No sensory deficit.No cerebellar signs , cranial nerves II-XII intact Medications Administered Discontinued Medications Generic Name Dose Route Start Last Admin Trade Name Freq PRN Reason Stop Dose Admin Lorazepam 2 mg 09/13/24 23:31 09/13/24 23:44 Lorazepam 1 Mg Tablet PO 09/13/24 23:32 2 mg ONCE ONE Administration Medical Decision Making Medical Decision Making [facility] Narrative: Patient with bipolar disorder with increased depression with suicidal thoughts will get care team evaluation medically cleared Lab Data [facility] Lab Attestation statement: I reviewed the patient's lab results. 09/13/24 23:12 09/13/24 23:12 Labs: Lab Results 09/13/24 09/13/24 09/13/24 Range/Units 23:11 23:12 23:21 WBC 8.3 (4.8-10.8) X10*3/uL RBC 4.45 (4.20-5.50) X10*6/uL Hgb 13.7 D (12.0-16.0) g/dl Hct 38.4 (37.0-47.0) % MCV 86.3 (80.0-98.0) fL MCH 30.8 (27.0-33.0) pg MCHC 35.7 H (31.0-35.0) g/dl RDW 11.8 (11.0-16.0) % Plt Count 224 (160-400) X10*3/uL MPV 9.2 L (9.4-12.3) fL Immature Gran % (Auto) 0.4 (0.0-0.4) % Neut % (Auto) 65.0 (45-73) % Lymph % (Auto) 26.7 (20-40) % [place] % (Auto) 6.0 (2-11) % Eos % (Auto) 1.4 (0-4) % Baso % (Auto) 0.5 (0-2) % Lymph # (Auto) 2.2 (1.2-4.9) X10*3/uL [place] # (Auto) 0.5 (0.1-1.2) X10*3/uL Eos # (Auto) 0.1 (0.0-0.4) X10*3/uL Baso # (Auto) 0.0 (0.0-0.2) X10*3/uL Abs Immat Gran (auto) 0.03 (0.00-0.03) X10*3/uL Absolute Neuts (auto) 5.4 (2.0-8.3) x10*3/uL Absolute Nucleated RBC 0.000 (0.0-0.012) X10*3/uL Nucleated RBC % (auto) 0.0 (0.0-0.2) /100WBC Sodium 139 (135-145) mmol/L Potassium 3.8 (3.3-5.1) mmol/L Chloride 104 (96-108) mmol/L Carbon Dioxide 24 (22-29) mmol/L Anion Gap 15 (12-20) BUN 11 (9-16) mg/dL Creatinine 0.96 (0.5-1.4) mg/dL Estim Creat Clear Calc 84.9 Estimated GFR > 60 Random Glucose 223 H (60-115) mg/dL Calcium 9.1 (8.4-10.2) mg/dL Total Bilirubin 0.3 (0.0-1.0) mg/dL AST 23 (5-31) U/L ALT 25 (0-31) U/L Alkaline Phosphatase 56 (39-117) U/L Total Protein 8.1 H (6.5-8.0) g/dL Albumin 4.0 (3.5-5.0) g/dL Urine Color Yellow Urine Appearance Clear Urine pH 7.0 (5.0-9.0) Ur Specific [place] 1.010 (1.005-1.025) Urine Protein Negative (Neg-Trace) mg/dL Urine Glucose (UA) Negative (Negative) mg/dL Urine Ketones Negative (Negative) mg/dL Urine Blood Negative (Negative) Urine Nitrite Negative (Negative) Ur Leukocyte Esterase Negative (Negative) Urine Test NEGATIVE (NEGATIVE) Salicylates < 5.0 L (15-30) mg/dL Urine Opiates Screen Not Detected (Not Detect) Ur Buprenorphine Scrn Positive H (Not Detect) ng/mL Ur Oxycodone Screen Not Detected (Not Detect) ng/mL Urine Methadone Screen Not Detected (Not Detect) ng/mL Urine Fentanyl Screen Not Detected (Not Detect) Acetaminophen < 3 (<30) mcg/mL Ur Barbiturates Screen Not Detected (Not Detect) Ur Phencyclidine Scrn Not Detected (Not Detect) Ur Amphetamines Screen Not Detected (Not Detect) U Benzodiazepines Scrn Not Detected (Not Detect) Urine Cocaine Screen Not Detected (Not Detect) U Marijuana (THC) Screen POSITIVE H (Not Detect) Ethyl Alcohol < 10 mg/dL Discharge Plan Discharge Clinical Impression: Bipolar 1 disorder, Depression, Suicidal ideation Patient Disposition: Still a Patient Prescriptions: No Action insulin glargine [Lantus Solostar U-100 Insulin] 100 unit/mL (3 mL) insulin pen 20 unit subcut QPM Qty: 15 2RF insulin lispro [Humalog Jean KwikPen U-100] 100 unit/mL insulin pen, half- unit 1 sliding scale dose subcut USEASDIRECTD Qty: 15 2RF (DME) lancets [Lancets,Ultra Thin] Misc See Rx Instructions .Route Qty: 100 0RF Rx Instructions: As directed alcohol swabs [Alcohol Pads] Pads, Medicated 1 pad topical .T.i.d. PRN (Reason: Blood sugar check) Qty: 200 0RF topiramate 25 mg tablet 1 tab PO BID PRN (Reason: Anxiety) metformin 500 mg tablet extended release 24 hr 500 mg PO DAILY@1700 buprenorphine-naloxone [Suboxone] 12-3 mg film 1.5 strip sublingual DAILY clonidine HCl 0.1 mg tablet 0.1 mg PO TID PRN (Reason: Anxiety) trazodone 50 mg tablet 25 - 50 mg PO BEDTIME omeprazole 40 mg capsule,delayed release(DR/EC) 40 mg PO DAILY@0630 hydrochlorothiazide 25 mg tablet 25 mg PO DAILY albuterol sulfate [ProAir HFA] 90 mcg/actuation HFA aerosol inhaler 2 puff inhalation Q6H PRN (Reason: Wheezing) venlafaxine 150 mg capsule,extended release 24hr 1 cap PO DAILY chlorpromazine 100 mg tablet 1 tab PO BEDTIME PRN (Reason: Anxiety) carbamazepine 200 mg tablet 1 tab PO BEDTIME nicotine (polacrilex) 4 mg lozenge 4 mg PO Q2H PRN (Reason: Nicotine Cravings) melatonin 3 mg tablet 1 - 2 tab PO BEDTIME PRN (Reason: Sleep) olanzapine 2.5 mg tablet 1 tab PO BID PRN (Reason: Agitation) topiramate [Topamax] 50 mg tablet 1 tab PO BID Interventions: [place]-Suicide Risk Severity Scale Last Done: 09/13/24 23:38 Print Language: Slovak
[2024-09-13 23:35] LABS: Amphetamine Screen Urine Not Detected (Not Detect); Barbiturates, Urine Not Detected (Not Detect); Benzodiazepines Screen Urine Not Detected (Not Detect); Buprenorphine Scr Positive (Not Detect); Cannabinoid Screen Urine POSITIVE (Not Detect); Cocaine Screen Urine Not Detected (Not Detect); Fentanyl, urine Not Detected (Not Detect); Methadone Screen, Urine Not Detected (Not Detect); Opiate Screen Urine Not Detected (Not Detect); Oxycodone Screen Urine Not Detected (Not Detect); Phencyclidine Screen Urine Not Detected (Not Detect)
[2024-09-13 23:39] LABS: Acetaminophen LAB < 3 mcg/mL (<30); Salicylate < 5.0 mg/dL (15-30)
[2024-09-13 23:39] LABS: Alanine Aminotransferase 25 U/L (0-31); Alkaline Phosphatase 56 U/L (39-117); Anion Gap 15 (12-20); Aspartate Amino Transferase 23 U/L (5-31); Bilirubin Total 0.3 mg/dL (0.0-1.0); Blood Urea Nitrogen 11 mg/dL (9-16); Calcium 9.1 mg/dL (8.4-10.2); Carbon Dioxide 24 mmol/L (22-29); Chloride 104 mmol/L (96-108); Creatinine Clr Calc Pharmacy 84.9; Estimated Glomerular Filt Rate > 60; Ethanol < 10 mg/dL; Glucose Random 223 mg/dL (60-115); Potassium 3.8 mmol/L (3.3-5.1); Sodium 139 mmol/L (135-145); Total Protein 8.1 g/dL (6.5-8.0)
[2024-09-13] MEDS: LORazepam 1 MG TABLET 2 MG PO (23:44)
--- OUTSIDE RECORDS SUMMARY | 2024-09-14 00:47 | XMS_ITS | Clinical Summary ---
Author Organization [facility] Address [id number] [place] [id number] Care Team Providers Care Network Liaison Name Role Phone Caryl Garcia MD Primary Care Provider [phone] Surgical History Surgery Date Site/Laterality Comments OTHER SURGICAL HISTORY 1998 PROCEDURE: MT DILATION & CURETTAGE DX&/THER NONOBSTETRIC OTHER SURGICAL HISTORY 1999 PROCEDURE: MT DILATION & CURETTAGE DX&/THER NONOBSTETRIC TUBAL LIGATION PROCEDURE: HISTORICAL TUBAL LIGATION COLONOSCOPY PROCEDURE: HISTORICAL COLONOSCOPY; COMMENT: pt states multiple performed at [place]->15, ? any at [facility] OTHER SURGICAL HISTORY PROCEDURE: MT GSTRCT PRTL DSTL W/GASTRODUODENOSTOMY; COMMENT: [address] Peralta at [facility] COLONOSCOPY PROCEDURE: HISTORICAL COLONOSCOPY; COMMENT: Performed at [facility] in 2016 Medical History Medical History Date Comments GERD (gastroesophageal reflux disease) DX:GERD (gastroesophageal reflux disease) Obesity DX:Obesity Elevated liver function tests DX :Elevated liver function tests History of fatty infiltration of liver DX:History of fatty infiltration of liver History of ulcerative colitis DX :History of ulcerative colitis History of hepatitis C DX:Histor y of hepatitis C History of drug use DX:History o f drug use; COMMENT: -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- suboxone issued by [facility] 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 ; COMMENT: Reports #16-has upcoming LEEP procedure Family History Medical History Relation Name Comments Other: trauma Father 30's- ran over by tractor [employer] truck Liver disease Mother stage four w/ encephalopathy Diabetes Sister Relation Name Status Comments Father Mother Alive Sister Alive Social History Tobacco Use Types Packs/Day Years Used Date Smoking Tobacco: Former Smokeless Tobacco: Never Alcohol Use Standard Drinks/Week Comments Yes 0 (1 standard drink = 0.6 oz pur e alcohol) Comments Unknown Sex and Gender Information Value Date Recorded Sex Assigned at Not on file Legal Sex Female 1:54 AM EST Gender Identity Not on file Sexual Orientation Not on file Obstetrics History Plan of Treatment Health Maintenance Due Date Last Done Comments Breast Cancer Screening 1980 DTaP,Tdap,and Td Vaccines (1 - Tdap) 10/31/1999 Hepatitis B Vaccines (1 of 3 - 19+ 3-dose series) 10/31/1999 Cervical Cancer Screening: P ap Smear 2001 Cholesterol Screening (Lipid Panel) 06/16/2022 Depression Screening 06/16/2022 HIV Screening 06/16/2022 Hepatitis C Screening 06/16/2022 Social Influencers of Health Screening 06/16/2022 COVID-19 Vaccine ( - 2023-2 5 season) 2024 Influenza Vaccine (#1) 2024 Colorectal Cancer Screening: Colonoscopy 07/17/2025 07/17/2022 HIB Vaccines Aged Out No longer eligi ble based on patient's age to complete this topic HPV Vaccines Aged Out No longer eligi ble based on patient's age to complete this topic Hepatitis A Vaccines Aged Out No long er eligible based on patient's age to complete this topic IPV Vaccines Aged Out No longer eligi ble based on patient's age to complete this topic MMR Vaccines Aged Out No longer eligi ble based on patient's age to complete this topic Meningococcal ACWY Vaccine Aged Out N o longer eligible based on patient's age to complete this topic Meningococcal B Vacine Aged Out No lo nger eligible based on patient's age to complete this topic Pneumococcal Vaccine: Pediat rics (0 to 5 Years) and At-Risk Patients (6 to 64 Years) Aged Out No longer eligi ble based on patient's age to complete this topic RSV Immunization Patients Un montserrat 20 months Aged Out No longer eligible b ased on patient's age to complete this topic Varicella Vaccines Aged Out No longer eligible based on patient's age to complete this topic Care Teams Network Liaison Relationship Specialty Start Date End Date Caryl Garcia MD [address] [place] [address] PCP - General 01/21/23
[2024-09-14 06:14] VITALS: BP 151/58; PULSE 61; RESP 16; TEMP 36.5; O2SAT 98
--- NOTE | 2024-09-14 06:26 | PC.NURSE ---
Pt slept for most of the night. Had one episode where pt woke up and reported sob and a constant cough. Vitals remained stable. Sat 96% RA. MD made aware. Pt medicated as per SEP and pt reported relief. Cough subsided and pt went back to sleep with no issues/concerns. No apparent distress noted. Monitoring is ongoing.
--- NOTE | 2024-09-14 06:32 | PC.NURSE ---
Pt medicated shortly after arrival. Pt slept throughout the night with no issues/concerns. Breaths remained regular even and unlabored. No apparent distress noted. Monitoring ongoing.
[2024-09-14 07:32] LABS: Glucose, Whole Blood 108 mg/dL (60-115)
--- NOTE | 2024-09-14 09:38 | PHA.MEDREC ---
Addendum entered by Wendy Mcdowell RPh 09/14/24 10:24: Carbamazepine removed from med rec, no claims history. Addendum entered by Wedny Mcdowell RPh 09/14/24 10:17: Reviewed by [facility] Original Note: Pharmacy Consult ? Medication Reconciliation Pharmacy has completed the medication reconciliation. Spoke to patient to confirm med list. Patient states she is no longer taking Clonidine 0.1 mg, Melatonin , Metformin 500 mg, Olanzapine , Topiramate 50 mg, Trazadone 25 mg, and Venlafaxine. Patient confirmed Lantus Solostar 20 units bedtime, and Humalog per sliding scale.
[2024-09-14 10:31] LABS: Glucose, Whole Blood 228 mg/dL (60-115)
[2024-09-14] MEDS: Multivitamin TABLET 1 TAB PO (10:40)
[2024-09-14] MEDS: Lithium Carbonate 300 MG CAPSULE PO (10:40)
[2024-09-14] MEDS: hydroCHLOROthiazide 25 MG TABLET PO (10:40)
[2024-09-14] MEDS: Nicotine Polacrilex Lozenge 4 MG LOZENGE BUCCAL ×2 (10:40→18:18)
[2024-09-14] MEDS: clonazePAM 0.5 MG TABLET PO (10:40)
[2024-09-14] MEDS: Buprenorphine/Naloxone 12/3 mg FILM 1 FILM SUBLINGUAL (10:41)
[2024-09-14] MEDS: QUEtiapine Fumarate 200 MG TABLET PO (10:41)
[2024-09-14] MEDS: buPROPion HCl XL 150 MG TAB.ER.24H PO (10:41)
[2024-09-14] MEDS: Prazosin HCL 1 MG CAPSULE 2 MG PO (10:41)
[2024-09-14] MEDS: Omeprazole 40 MG CAPSULE.DR PO (10:41)
[2024-09-14] MEDS: Buprenorphine/Naloxone 8/2 mg FILM 1 FILM SUBLINGUAL (10:41)
[2024-09-14] MEDS: Doxepin HCl 10 MG CAPSULE 5 MG PO (13:22)
[2024-09-14 13:23] LABS: Glucose, Whole Blood 174 mg/dL (60-115)
[2024-09-14] MEDS: Insulin Lispro 100 UNIT/ML 3 ML VIAL SUBCUT (13:30)
--- NOTE | 2024-09-14 13:56 | MHC.CARE ---
Patient evaluated by the CARE Team, disposition inpatient psychiatric treatment, Dr. Brayan venegas
--- NOTE | 2024-09-14 14:13 | ECG_ITS ---
Test Reason : R/O PROLONGED QT Blood Pressure : */* mmHG Vent. Rate : 71 BPM Atrial Rate : 71 BPM P-R Int : 178 ms QRS Dur : 74 ms QT Int : 404 ms P-R-T Axes : 20 15 38 degrees QTcB Int : 439 ms Normal sinus rhythm Nonspecific T wave abnormality Abnormal ECG When compared with ECG of 26-Mar-2022 05:18, MN interval has decreased Nonspecific T wave abnormality now evident in Lateral leads Referred By: Quentin Schmidt Electronically Signed By: MOIRA MCCARTNEY
--- NOTE | 2024-09-14 15:43 | MHC.CARE ---
Disposition changed to [facility], referral under review at [facility]. Dr Schmidt updated
--- NOTE | 2024-09-14 17:41 | MHC.CARE ---
Patient accepted to [facility] for admission tomorrow morning at 945. Her will bring her clothes and medications to [facility] tonight. Provider Dr. Schmidt and staff updated
[2024-09-14 18:20] VITALS: BP 168/91; PULSE 75; RESP 12; TEMP 36.4; O2SAT 97
[2024-09-14] MEDS: Nicotine 7 MG PATCH.TD24 TRANSDERMA (18:22)
[2024-09-14 18:27] LABS: Glucose, Whole Blood 139 mg/dL (60-115)
--- NOTE | 2024-09-14 19:09 | PC.NURSE ---
this rn assumed care of pt, pt resting in bed, no acute distress noted, respirations even and unlabored.
--- NOTE | 2024-09-14 20:10 | PC.NURSE ---
pt awake and given sandwich per request at this time. pt offers no complaints.
[2024-09-14 20:21] LABS: Glucose, Whole Blood 116 mg/dL (60-115)
[2024-09-14] MEDS: Insulin Glargine,Hum.rec.anlog 100 UNIT/ML 10 ML VIAL 20 UNIT SUBCUT (20:39)
[2024-09-14] MEDS: risperiDONE 3 MG TABLET PO (20:39)
--- NOTE | 2024-09-14 20:41 | PC.NURSE ---
pt POC 116, Pt medicated per mar, tolerated whole well with water.
--- NOTE | 2024-09-14 23:04 | PC.NURSE ---
belongings and hygeine products placed in locker 3, due to head to respite in am patient appears to remain at rest presently ptient appears in no distress.
--- NOTE | 2024-09-14 23:24 | PC.NURSE ---
patient appears to remain at rest at present respirations are even nd unlabored patient asked appropriate questions in regards to belongings being dropped off appears in no distress
[2024-09-15 00:29] VITALS: BP 126/58; PULSE 69; RESP 17; TEMP 36.6; O2SAT 98
--- NOTE | 2024-09-15 07:06 | PC.NURSE ---
Assumed care of patient at 0645, patient appears to be in no apparent distress this am, ambulating with steady gait, calm and cooperative. Continue plan of care for [facility] bedsearch
[2024-09-15 07:26] LABS: Glucose, Whole Blood 102 mg/dL (60-115)
[2024-09-15] MEDS: buPROPion HCl XL 150 MG TAB.ER.24H PO (07:59)
[2024-09-15] MEDS: Buprenorphine/Naloxone 12/3 mg FILM 1 FILM SUBLINGUAL (07:59)
[2024-09-15] MEDS: Prazosin HCL 1 MG CAPSULE 2 MG PO (07:59)
[2024-09-15] MEDS: QUEtiapine Fumarate 200 MG TABLET PO (07:59)
[2024-09-15] MEDS: Omeprazole 40 MG CAPSULE.DR PO (07:59)
[2024-09-15] MEDS: Lithium Carbonate 300 MG CAPSULE PO (07:59)
[2024-09-15] MEDS: Buprenorphine/Naloxone 8/2 mg FILM 1 FILM SUBLINGUAL (07:59)
[2024-09-15] MEDS: Multivitamin TABLET 1 TAB PO (07:59)
[2024-09-15] MEDS: hydroCHLOROthiazide 25 MG TABLET PO (07:59)
[2024-09-15] MEDS: Nicotine Polacrilex Lozenge 4 MG LOZENGE BUCCAL (08:35)
[2024-09-15] MEDS: clonazePAM 0.5 MG TABLET PO (09:03)
[2024-09-15] MEDS: Doxepin HCl 10 MG CAPSULE 5 MG PO (09:13)
[2024-09-15 09:51] VITALS: BP 139/91; PULSE 84; RESP 16; TEMP 36.9; O2SAT 97
== END 2024-09-15 09:53 ==
PROVIDERS: Emergency Provider Internal Medicine; PCP Family Medicine
DX: F31.9 Bipolar disorder, unspecified (principal); F32.A Depression, unspecified; R45.851 Suicidal ideations; F60.3 Borderline personality disorder; F41.9 Anxiety disorder, unspecified; F43.10 Post-traumatic stress disorder, unspecified; Z91.51 Personal history of suicidal behavior; F17.210 Nicotine dependence, cigarettes, uncomplicated; F12.90 Cannabis use, unspecified, uncomplicated; Z79.899 Other long term (current) drug therapy
CPT/HCPCS: 36415; 80053; 80143; 80179; 80307; 81003; 81025; 82947; 85025; 93005; 99285; S9485

== ENCOUNTER → 2024-09-14 14:13 | Outpatient (BNV) | payer MEDICAID, SELFPAY | PROVIDERS: Emergency Provider Internal Medicine; PCP Family Medicine; Visit Provider Internal Medicine | DX: R94.31 Abnormal electrocardiogram [ECG] [EKG] (principal); Z13.6 Encounter for screening for cardiovascular disorders | CPT/HCPCS: 93010 ==

== ENCOUNTER 2024-10-05 22:44 | Emergency (ER) | payer MEDICAID, SELFPAY ==
[2024-10-05 22:50] VITALS: BP 153/98; PULSE 89; RESP 14; TEMP 37.1; O2SAT 96; BMI 40.8
[2024-10-05 23:17] LABS: MANUAL DIFF FLAG NO
[2024-10-05 23:19] LABS: Basophils Absolute Auto 0.1 X10*3/uL (0.0-0.2); Basophils Percent Auto 0.6 % (0-2); Eosinophils Absolute Auto 0.2 X10*3/uL (0.0-0.4); Eosinophils Percent Auto 1.9 % (0-4); Hematocrit 37.7 % (37.0-47.0); Hemoglobin 13.5 g/dl (12.0-16.0); Imm Gran Abs Auto 0.06 X10*3/uL (0.00-0.03); Imm Gran Pct Auto 0.6 % (0.0-0.4); Lymphocytes Percent Auto 19.4 % (20-40); Mean Corpuscular HGB Conc 35.8 g/dl (31.0-35.0); Mean Corpuscular Hemoglobin 31.3 pg (27.0-33.0); Mean Corpuscular Volume 87.5 fL (80.0-98.0); Mean Platelet Volume 8.8 fL (9.4-12.3); Monocytes Absolute Auto 0.7 X10*3/uL (0.1-1.2); Monocytes Percent Auto 6.5 % (2-11); Neutrophils Absolute Auto 7.4 x10*3/uL (2.0-8.3); Platelet Count 218 X10*3/uL (160-400); Red Blood Count 4.31 X10*6/uL (4.20-5.50); White Blood Count 10.4 X10*3/uL (4.8-10.8)
[2024-10-05 23:20] LABS: Appearance Urine Cloudy; Color Urine Dark Yellow; Glucose Urine UA 100 mg/dL (Negative); Leukocyte Esterase Urine Negative (Negative); Nitrite Urine Negative (Negative); PH 5.5 (5.0-9.0); Specific Gravity - Urine 1.025 (1.005-1.025); Urine Blood Negative (Negative); Urine Ketones Trace mg/dL (Negative); Urine Protein Negative (Neg-Trace)
[2024-10-05 23:31] LABS: Amphetamine Screen Urine Not Detected (Not Detect); Barbiturates, Urine Not Detected (Not Detect); Benzodiazepines Screen Urine Not Detected (Not Detect); Buprenorphine Scr Positive (Not Detect); Cannabinoid Screen Urine POSITIVE (Not Detect); Cocaine Screen Urine Not Detected (Not Detect); Fentanyl, urine Not Detected (Not Detect); Methadone Screen, Urine Not Detected (Not Detect); Opiate Screen Urine Not Detected (Not Detect); Oxycodone Screen Urine Not Detected (Not Detect); Phencyclidine Screen Urine Not Detected (Not Detect)
[2024-10-05 23:35] LABS: Alanine Aminotransferase 15 U/L (0-31); Albumin Level 3.8 g/dL (3.5-5.0); Alkaline Phosphatase 54 U/L (39-117); Anion Gap 12 (12-20); Aspartate Amino Transferase 21 U/L (5-31); Bilirubin Total 0.5 mg/dL (0.0-1.0); Blood Urea Nitrogen 9 mg/dL (9-16); Calcium 9.6 mg/dL (8.4-10.2); Carbon Dioxide 24 mmol/L (22-29); Chloride 107 mmol/L (96-108); Creatinine Clr Calc Pharmacy 80.6; Estimated Glomerular Filt Rate 58; Glucose Random 240 mg/dL (60-115); Potassium 3.8 mmol/L (3.3-5.1); Sodium 139 mmol/L (135-145); Total Protein 7.1 g/dL (6.5-8.0)
--- NOTE | 2024-10-05 23:43 | ED_ITS ---
HPI - Psych General Chief Complaint: Psychiatric Symptoms Stated Complaint: crisis Time Seen by Provider: 10/05/24 23:42 Source: patient Mode of arrival: ambulatory Limitations: no limitations History of Present Illness ED Provider: HPI Narrative: patient's patient's history of bipolar disorder been feeling suicidal [place] reports hearing voices that are telling her to kill him herself patient never had any auditory hallucination in the past Related Data Home Medications ?Medication ?Instructions ?Recorded ?Confirmed omeprazole 40 mg capsule,delayed 40 mg PO DAILY@0630 01/27/22 10/06/24 release nicotine (polacrilex) 4 mg buccal 4 mg PO Q2H PRN Nicotine Cravings 03/26/22 10/06/24 lozenge albuterol sulfate 90 mcg/actuation 2 puff inhalation Q6H PRN 09/14/24 09/14/24 aerosol inhaler (Ventolin HFA) Shortness Of Breath Or Wheezing buprenorphine 12 mg-naloxone 3 mg 1 film sublingual DAILY 09/14/24 09/14/24 sublingual film (Suboxone) buprenorphine 8 mg-naloxone 2 mg 1 film sublingual DAILY 09/14/24 10/06/24 sublingual film (Suboxone) bupropion HCl 150 mg 24 hr tablet, 150 mg PO DAILY 09/14/24 10/05/24 extended release chlorpromazine 50 mg tablet 50 mg PO BID PRN Agitation 09/14/24 10/05/24 clonazepam 0.5 mg tablet 0.5 mg PO DAILY PRN Anxiety 09/14/24 10/05/24 doxepin 3 mg tablet 3 mg PO DAILY 09/14/24 10/05/24 insulin glargine 100 unit/mL (3 20 unit subcut BEDTIME 09/14/24 10/06/24 mL) subcutaneous pen (Lantus Solostar U-100 Insulin) multivitamin 1 tab PO DAILY 09/14/24 10/06/24 nicotine 7 mg/24 hr daily 7 mg transdermal DAILY PRN 09/14/24 10/06/24 transdermal patch Nicotine Cravings prazosin 2 mg capsule 2 mg PO DAILY 09/14/24 10/05/24 quetiapine 200 mg tablet 200 mg PO DAILY 09/14/24 10/06/24 risperidone 3 mg tablet 3 mg PO DAILY 09/14/24 10/05/24 hydrochlorothiazide 25 mg tablet 12.5 mg PO DAILY 10/05/24 10/05/24 lithium carbonate 300 mg tablet 600 mg PO BEDTIME 10/05/24 10/05/24 Previous Rx's ?Medication ?Instructions ?Recorded insulin lispro 100 unit/mL 1 sliding scale dose subcut 04/07/22 subcutaneous half-unit pen USEASDIRECTD #15 mL (Humalog Jean KwikPen (U-100)) lancets (Lancets,Ultra Thin) #100 ea 04/07/22 Allergies Allergy/AdvReac Type Severity Reaction Status Date / Time No Known Allergies Allergy Verified 10/05/24 22:52 Review of Systems 2 Review of Systems: Yes all other systems are reviewed and are negative [facility] Past Medical History Medical History Diabetes mellitus PTSD (post-traumatic stress disorder) Borderline personality disorder Bipolar 1 disorder Suicide attempt Depression Anxiety Social History Social History Household Members: Spouse Housing: Apartment Do you presently have visiting nurse or other home services: No Alcohol intake: current Alcohol intake frequency: holidays/special occasions only Patient Tobacco Use Status: Current everyday Tobacco user Tobacco use type: Cigarette Cigarette Packs Per Day: 0.5 Cigarettes Per Day: 10.0 Years Smoked: 20 Smoked in Last 30 Days: Yes e-Cigarette/Vaping Use: Currently Using Second Hand Smoke Exposure: Yes Use of substances other than those prescribed or required for medical reasons: Yes Substance Use Type: Marijuana Advance Directives: No Advance Directives Information Provided: Yes Advance Directives Date on File: 03/28/22 Do you have a plan to hurt others: No Plan Patient : No service: No Sexual orientation: Straight/Heterosexual Physical Exam 2 Vital Signs: Vital Signs: Last Vital Signs Temp 98.1 F 10/06/24 17:40 Pulse 76 10/06/24 17:40 Resp 18 10/06/24 17:40 BP 158/88 H 10/06/24 17:40 Pulse Ox 98 10/06/24 17:40 O2 Del Method Room Air 10/06/24 17:40 BMI result Body Mass Index 40.8 Appearance: Alert. Oriented X3. No acute distress. Eyes: PERRLA, No Nystagmus ENT: Pharynx normal. Oral Mucosa moist Neck: Normal inspection. Neck supple. CVS: Normal heart rate and rhythm. Pulses normal. Respiratory: No respiratory distress. Equal air entry bilateral, no wheezing/rales/rhonchi Abdomen: Soft and nontender. Bowel sounds are present, no mass palpable, no CVA tenderness Skin: Skin warm and dry. Normal skin color. Normal skin turgor. Extremities: No lower extremity edema. No calf tenderness psych: anxious depressed no current SI no hallucination or delusion at this time Neuro: Oriented X 3. No motor deficit. No sensory deficit.No cerebellar signs , cranial nerves II-XII intact Course Reevaluation(s) Reevaluation #1: Care team input is appreciated, patient will be referred to respite as per care team recommendation, patient currently has no SI no HI, no hallucination. Feels safe to be discharged to respite. Time: 14:45 Medications Administered Discontinued Medications Generic Name Dose Route Start Last Admin Trade Name Svenq PRN Reason Stop Dose Admin Buprenorphine/Naloxone 1 film 10/06/24 09:00 10/06/24 08:12 Buprenorphine/Naloxone 8/2 Mg Film SUBLINGUAL 1 film DAILY RAHEEM Administration Bupropion HCl 150 mg 10/06/24 09:00 10/06/24 08:12 Bupropion Hcl Xl 150 Mg Tab.Er.24h PO 150 mg DAILY RAHEEM Administration Clonazepam 0.5 mg 10/06/24 00:25 10/06/24 13:38 Clonazepam 0.5 Mg Tablet PO 0.5 mg DAILY PRN Administration Anxiety Hydrochlorothiazide 12.5 mg 10/06/24 09:00 10/06/24 08:37 Hydrochlorothiazide 12.5 Mg Tablet PO 12.5 mg DAILY RAHEEM Administration Protocol [place] Carbonate 600 mg 10/06/24 00:30 10/06/24 00:51 [place] Carbonate 300 Mg Capsule PO 600 mg BEDTIME RAHEEM Administration Nicotine 21 mg 10/06/24 04:43 10/06/24 05:14 Nicotine 21 Mg Patch.Td24 TRANSDERMA 10/06/24 04:44 21 mg ONCE ONE Administration Nicotine Polacrilex 4 mg 10/06/24 10:44 10/06/24 16:05 Nicotine Polacrilex Lozenge 4 Mg Lozenge BUCCAL 4 mg Q2H PRN Administration Nicotine Cravings Prazosin HCl 2 mg 10/06/24 09:00 10/06/24 08:12 Prazosin Hcl 1 Mg Capsule PO 2 mg DAILY RAHEEM Administration Protocol Risperidone 3 mg 10/06/24 09:00 10/06/24 08:13 Risperidone 3 Mg Tablet PO 3 mg DAILY RAHEEM Administration Medical Decision Making Lab Data 10/05/24 23:11 10/05/24 23:11 Labs: Lab Results 10/05/24 10/06/24 10/06/24 Range/Units 23:11 01:03 06:44 WBC 10.4 (4.8-10.8) X10*3/uL RBC 4.31 (4.20-5.50) X10*6/uL Hgb 13.5 (12.0-16.0) g/dl Hct 37.7 (37.0-47.0) % MCV 87.5 (80.0-98.0) fL MCH 31.3 (27.0-33.0) pg MCHC 35.8 H (31.0-35.0) g/dl RDW 12.0 (11.0-16.0) % Plt Count 218 (160-400) X10*3/uL MPV 8.8 L (9.4-12.3) fL Immature Gran % (Auto) 0.6 H (0.0-0.4) % Neut % (Auto) 71.0 (45-73) % Lymph % (Auto) 19.4 L (20-40) % [place] % (Auto) 6.5 (2-11) % Eos % (Auto) 1.9 (0-4) % Baso % (Auto) 0.6 (0-2) % Lymph # (Auto) 2.0 (1.2-4.9) X10*3/uL [place] # (Auto) 0.7 (0.1-1.2) X10*3/uL Eos # (Auto) 0.2 (0.0-0.4) X10*3/uL Baso # (Auto) 0.1 (0.0-0.2) X10*3/uL Abs Immat Gran (auto) 0.06 H (0.00-0.03) X10*3/uL Absolute Neuts (auto) 7.4 (2.0-8.3) x10*3/uL Absolute Nucleated RBC 0.000 (0.0-0.012) X10*3/uL Nucleated RBC % (auto) 0.0 (0.0-0.2) /100WBC Sodium 139 (135-145) mmol/L Potassium 3.8 (3.3-5.1) mmol/L Chloride 107 (96-108) mmol/L Carbon Dioxide 24 (22-29) mmol/L Anion Gap 12 (12-20) BUN 9 (9-16) mg/dL Creatinine 1.04 (0.5-1.4) mg/dL Estim Creat Clear Calc 80.6 Estimated GFR 58 POC Glucose 84 (60-115) mg/dL Random Glucose 240 H (60-115) mg/dL Calcium 9.6 (8.4-10.2) mg/dL Total Bilirubin 0.5 (0.0-1.0) mg/dL AST 21 (5-31) U/L ALT 15 (0-31) U/L Alkaline Phosphatase 54 (39-117) U/L Total Protein 7.1 (6.5-8.0) g/dL Albumin 3.8 (3.5-5.0) g/dL Urine Color Dark Yellow Urine Appearance Cloudy Urine pH 5.5 (5.0-9.0) Ur Specific Reading 1.025 (1.005-1.025) Urine Protein Negative (Neg-Trace) mg/dL Urine Glucose (UA) 100 H (Negative) mg/dL Urine Ketones Trace (Negative) mg/dL Urine Blood Negative (Negative) Urine Nitrite Negative (Negative) Ur Leukocyte Esterase Negative (Negative) Urine Opiates Screen Not Detected (Not Detect) Ur Buprenorphine Scrn Positive H (Not Detect) ng/mL Ur Oxycodone Screen Not Detected (Not Detect) ng/mL Urine Methadone Screen Not Detected (Not Detect) ng/mL Urine Fentanyl Screen Not Detected (Not Detect) Ur Barbiturates Screen Not Detected (Not Detect) Ur Phencyclidine Scrn Not Detected (Not Detect) Ur Amphetamines Screen Not Detected (Not Detect) U Benzodiazepines Scrn Not Detected (Not Detect) [place] 1.02 (0.60-1.20) mmol/L Urine Cocaine Screen Not Detected (Not Detect) U Marijuana (THC) Screen POSITIVE H (Not Detect) COVID-19 (DANILE) Negative (Negative) COVID-19 Clin Com See Note Discharge Plan Discharge Clinical Impression: Acute anxiety Patient Disposition: Home, Self-Care Instructions: Anxiety (ED) Prescriptions: No Action insulin lispro [Humalog Jean [place]Pen U-100] 100 unit/mL insulin pen, half- unit 1 sliding scale dose subcut USEASDIRECTD Qty: 15 2RF (DME) lancets [Lancets,Ultra Thin] Misc See Rx Instructions .Route Qty: 100 0RF Rx Instructions: As directed omeprazole 40 mg capsule,delayed release(DR/EC) 40 mg PO DAILY@0630 nicotine (polacrilex) 4 mg lozenge 4 mg PO Q2H PRN (Reason: Nicotine Cravings) clonazepam 0.5 mg tablet 0.5 mg PO DAILY PRN (Reason: Anxiety) quetiapine 200 mg tablet 200 mg PO DAILY risperidone 3 mg tablet 3 mg PO DAILY prazosin 2 mg capsule 2 mg PO DAILY nicotine 7 mg/24 hr patch 24 hour 7 mg transdermal DAILY PRN (Reason: Nicotine Cravings) bupropion HCl 150 mg tablet extended release 24 hr 150 mg PO DAILY doxepin 3 mg tablet 3 mg PO DAILY buprenorphine-naloxone [Suboxone] 8-2 mg film 1 film sublingual DAILY buprenorphine-naloxone [Suboxone] 12-3 mg film 1 film sublingual DAILY multivitamin Tablet 1 tab PO DAILY albuterol sulfate [Ventolin HFA] 90 mcg/actuation Hfa Aerosol Inhaler 2 puff INHALATION Q6H PRN (Reason: Shortness Of Breath Or Wheezing) insulin glargine [Lantus Solostar U-100 Insulin] 100 unit/mL (3 mL) insulin pen 20 unit subcut BEDTIME chlorpromazine 50 mg tablet 50 mg PO BID PRN (Reason: Agitation) hydrochlorothiazide 25 mg tablet 12.5 mg PO DAILY lithium carbonate 300 mg tablet 600 mg PO BEDTIME Interventions: [place]-Suicide Risk Severity Scale Last Done: 10/05/24 23:25 ED Discharge Assessment Last Done: 10/06/24 17:40 Discharge Date/Time: 10/06/24 18:04 Print Language: Greenlandic
[2024-10-05 23:48] LABS: COVID-19 Test Negative (Negative); IDNOW Serial# 6674DD1D
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
[2024-10-06] MEDS: Lithium Carbonate 300 MG CAPSULE 600 MG PO (00:51)
[2024-10-06] MEDS: clonazePAM 0.5 MG TABLET PO ×2 (00:51→13:38)
[2024-10-06 02:37] LABS: Lithium 1.02 mmol/L (0.60-1.20)
[2024-10-06] MEDS: Nicotine 21 MG PATCH.TD24 TRANSDERMA (05:14)
--- NOTE | 2024-10-06 06:25 | PC.NURSE ---
pt ambulated to BR independently with steady gait. Pt requesting suboxone.
[2024-10-06 07:42] VITALS: BP 169/91; PULSE 74; RESP 16; TEMP 36.3; O2SAT 99
[2024-10-06 07:57] LABS: Glucose, Whole Blood 84 mg/dL (60-115)
--- NOTE | 2024-10-06 08:09 | PC.NURSE ---
pt requesting nicorette gum, provider notified of pt request.
[2024-10-06 08:12] VITALS: BP 169/91
[2024-10-06] MEDS: buPROPion HCl XL 150 MG TAB.ER.24H PO (08:12)
[2024-10-06] MEDS: Buprenorphine/Naloxone 8/2 mg FILM 1 FILM SUBLINGUAL (08:12)
[2024-10-06] MEDS: Prazosin HCL 1 MG CAPSULE 2 MG PO (08:12)
[2024-10-06] MEDS: risperiDONE 3 MG TABLET PO (08:13)
--- NOTE | 2024-10-06 08:16 | PC.NURSE ---
called pharmacy for missing meds
[2024-10-06 08:37] VITALS: BP 169/91
[2024-10-06] MEDS: hydroCHLOROthiazide 12.5 MG TABLET PO (08:37)
[2024-10-06] MEDS: Nicotine Polacrilex Lozenge 4 MG LOZENGE BUCCAL ×2 (11:42→16:05)
--- NOTE | 2024-10-06 14:14 | PC.NURSE ---
Lisandra from [facility] in [place] called regarding accepting the patient. she stated that in order for them to accept the patient she would need all her daily meds with her. this nurse called the care team in regards to this and gave them the contact number to call. [phone]
[2024-10-06 17:40] VITALS: BP 158/88; PULSE 76; RESP 18; TEMP 36.7; O2SAT 98
== END 2024-10-06 18:04 | disposition home or self-care (01) ==
PROVIDERS: Emergency Provider Internal Medicine
DX: R45.851 Suicidal ideations (principal); F31.9 Bipolar disorder, unspecified; F41.9 Anxiety disorder, unspecified; F17.210 Nicotine dependence, cigarettes, uncomplicated; Z11.52 Encounter for screening for COVID-19; Z79.899 Other long term (current) drug therapy; Z51.81 Encounter for therapeutic drug level monitoring
CPT/HCPCS: 36415; 80053; 80178; 80307; 81003; 82947; 85025; 87635; 99284; 99285; S9485